=== PATIENT | male | born 1960 | race Caucasian/White ===

== ENCOUNTER → 2019-08-23 | Outpatient (CLI) | payer BC, SELFPAY ==
[2019-08-23 12:57] LABS: Absolute Lymphocyte Count 2.16 X10^3/uL (0.83-4.51); Absolute Neutrophil Count 4.3 X10^3/uL (2.0-7.7); Basophil# 0.07 X10^3/uL; Eosinophil# 0.28 X10^3/uL; Eosinophils% 3.8 % (0-5); Hematocrit 46.9 % (40-54); Hemoglobin 15.7 g/dL (13.0-16.5); Lymphocyte # 2.16 X10^3/ul (4.0); Lymphocyte % 29.3 % (19-41); Mean Corp Hgb Conc 33.5 g/dL (32-36); Mean Corpuscular Hgb 33.3 pg (27.0-32.0); Mean Corpuscular Volume 99.4 fL (80-94); Mean Platelet Vol. 11.4 fl (6.2-12.0); Monocyte# 0.57 X10^3/uL; Monocyte% 7.7 % (0-10); NRBC Flagged by Analyzer 0 % (0-5); Neutrophil # 4.26 X10^3/uL (2.7-7.7); Neutrophil % 57.9 % (47-70); Platelet Count 217 K/mm3 (150-450); RBC Distribution Width SD 46.9 fl (35.1-43.9); Red Blood Count 4.72 M/mm3 (4.6-6.2); White Blood Count 7.4 K/mm3 (4.4-11.0)
[2019-08-23 13:25] LABS: ALB/GLOB Ratio 0.8 RATIO (0.9-2.4); AST(SGOT) 37 U/L (15-37); Alanine Aminotransfer ALT/SGPT 45 U/L (16-61); Albumin, Serum 3.4 g/dL (3.2-5.0); Alkaline Phosphatase 72 U/L (45-117); Anion Gap 7 (5-15); BUN 15 mg/dL (7-18); BUN/Creat Ratio 15.1 RATIO (10-20); Calcium,Total 8.7 mg/dL (8.5-10.1); Chloride 98 mmol/L (98-107); Cholesterol 163 mg/dL (200); Creatinine, Serum 0.99 mg/dL (0.70-1.30); EST Glomerular Filtration Rate 82 mL/min (>60); Est Glom Filt Rate - Afr Amer 100 mL/min (>60); Globulin 4.3 g/dL (2.2-4.2); Glucose 175 mg/dL (74-106); High Density Lipoprotein 35 mg/dL; Potassium 3.3 mmol/L (3.5-5.1); Protein, Total 7.7 g/dL (6.4-8.2); Sodium Level 135 mmol/L (136-145); Thyroid Stim Hormone (TSH) 0.75 uIU/mL (0.358-3.74); Triglycerides 179 mg/dL; Very Low Density Lipoprotein 36 mg/dL (5-40)
== END | disposition home or self-care (01) ==
LOC: MFPLAB 11:17
PROVIDERS: PCP Family Medicine; Referring Provider Family Medicine; Visit Provider Family Medicine
DX: Z00.00 Encounter for general adult medical examination without abnormal findings (principal)
CPT/HCPCS: 36415; 80053; 80061; 84443; 85025

== ENCOUNTER → 2020-12-15 12:18 | Outpatient (CLI) | payer BC, SELFPAY ==
[2020-12-15 15:42] LABS: Absolute Lymphocyte Count 2.52 X10^3/uL (0.83-4.51); Absolute Neutrophil Count 5.2 X10^3/uL (2.0-7.7); Basophil# 0.08 X10^3/uL; Basophil% 0.9 % (0-1); Eosinophil# 0.32 X10^3/uL; Eosinophils% 3.6 % (0-5); Hematocrit 48.9 % (40-54); Hemoglobin 16.7 g/dL (13.0-16.5); Lymphocyte # 2.52 X10^3/ul (0.83-4.51); Lymphocyte % 28.7 % (19-41); Mean Corp Hgb Conc 34.2 g/dL (32-36); Mean Corpuscular Hgb 33.7 pg (27.0-32.0); Mean Corpuscular Volume 98.8 fL (80-94); Mean Platelet Vol. 12.2 fl (6.2-12.0); Monocyte# 0.59 X10^3/uL; Monocyte% 6.7 % (0-10); NRBC Flagged by Analyzer 0 % (0-5); Neutrophil # 5.24 X10^3/uL (2.7-7.7); Neutrophil % 59.9 % (47-70); Platelet Count 246 K/mm3 (150-450); RBC Distribution Width CV 13.1 % (11.6-14.6); RBC Distribution Width SD 46.7 fl (35.1-43.9); Red Blood Count 4.95 M/mm3 (4.6-6.2); White Blood Count 8.8 K/mm3 (4.4-11.0)
[2020-12-15 15:53] LABS: Hemoglobin A1c 6.8 % (3.8-5.6)
[2020-12-15 16:04] LABS: ALB/GLOB Ratio 0.7 RATIO (0.9-2.4); AST(SGOT) 40 U/L (15-37); Alanine Aminotransfer ALT/SGPT 47 U/L (16-61); Albumin, Serum 3.3 g/dL (3.2-5.0); Alkaline Phosphatase 63 U/L (45-117); Anion Gap 7 (5-15); BUN 17 mg/dL (7-18); Calcium,Total 8.8 mg/dL (8.5-10.1); Chloride 95 mmol/L (98-107); Cholesterol 176 mg/dL (200); Creatinine, Serum 1.13 mg/dL (0.70-1.30); EST Glomerular Filtration Rate 71 mL/min (>60); Est Glom Filt Rate - Afr Amer 85 mL/min (>60); Globulin 4.5 g/dL (2.2-4.2); Glucose 147 mg/dL (74-106); High Density Lipoprotein 36 mg/dL; Potassium 3.2 mmol/L (3.5-5.1); Protein, Total 7.8 g/dL (6.4-8.2); Sodium Level 134 mmol/L (136-145); Triglycerides 229 mg/dL; Uric Acid 6.1 mg/dL (3.5-7.2); Very Low Density Lipoprotein 46 mg/dL (5-40)
== END ==
PROVIDERS: PCP Family Medicine; Referring Provider Family Medicine; Visit Provider Family Medicine
DX: I10 Essential (primary) hypertension (principal); G47.33 Obstructive sleep apnea (adult) (pediatric); M10.9 Gout, unspecified; E66.01 Morbid (severe) obesity due to excess calories
CPT/HCPCS: 36415; 80053; 80061; 82043; 82570; 83036; 84550; 85025

== ENCOUNTER → 2021-09-07 | Outpatient (CLI) | payer BC, SELFPAY ==
[2021-09-07 10:27] LABS: Absolute Lymphocyte Count 1.88 X10^3/uL (0.83-4.51); Absolute Neutrophil Count 3.7 X10^3/uL (2.0-7.7); Basophil# 0.09 X10^3/uL; Basophil% 1.4 % (0-1); Eosinophil# 0.39 X10^3/uL; Eosinophils% 5.9 % (0-5); Hematocrit 51.3 % (40-54); Hemoglobin 17.6 g/dL (13.0-16.5); Lymphocyte # 1.88 X10^3/ul (0.83-4.51); Lymphocyte % 28.4 % (19-41); Mean Corp Hgb Conc 34.3 g/dL (32-36); Mean Corpuscular Hgb 33.9 pg (27.0-32.0); Mean Corpuscular Volume 98.8 fL (80-94); Mean Platelet Vol. 12.1 fl (6.2-12.0); Monocyte# 0.52 X10^3/uL; Monocyte% 7.8 % (0-10); NRBC Flagged by Analyzer 0 % (0-5); Neutrophil # 3.74 X10^3/uL (2.7-7.7); Neutrophil % 56.3 % (47-70); Platelet Count 217 K/mm3 (150-450); RBC Distribution Width CV 13.5 % (11.6-14.6); RBC Distribution Width SD 49.7 fl (35.1-43.9); Red Blood Count 5.19 M/mm3 (4.6-6.2); White Blood Count 6.6 K/mm3 (4.4-11.0)
[2021-09-07 10:41] LABS: Hemoglobin A1c 5.7 % (3.8-5.6)
[2021-09-07 10:44] LABS: ALB/GLOB Ratio 0.9 RATIO (0.9-2.4); AST(SGOT) 49 U/L (15-37); Alanine Aminotransfer ALT/SGPT 60 U/L (16-61); Albumin, Serum 3.7 g/dL (3.2-5.0); Alkaline Phosphatase 61 U/L (45-117); Anion Gap 6 (5-15); BUN 20 mg/dL (7-18); BUN/Creat Ratio 20.7 RATIO (10-20); Calcium,Total 8.9 mg/dL (8.5-10.1); Chloride 100 mmol/L (98-107); Creatinine, Serum 0.97 mg/dL (0.70-1.30); EST Glomerular Filtration Rate 84 mL/min (>60); Est Glom Filt Rate - Afr Amer 102 mL/min (>60); Globulin 4.1 g/dL (2.2-4.2); Glucose 117 mg/dL (74-106); Potassium 3.2 mmol/L (3.5-5.1); Protein, Total 7.8 g/dL (6.4-8.2); Sodium Level 136 mmol/L (136-145); Uric Acid 5.6 mg/dL (3.5-7.2)
[2021-09-07 10:45] LABS: Vitamin B12 358 pg/mL (211-911)
[2021-09-07 14:21] LABS: Microalbumin:Creatinine Ratio 1490.8 mg/g CRE (<30 mg/g CRE)
== END | disposition home or self-care (01) ==
LOC: MFPLAB 08:52
PROVIDERS: PCP Family Medicine; Referring Provider Family Medicine; Visit Provider Family Medicine
DX: E11.9 Type 2 diabetes mellitus without complications (principal); G47.33 Obstructive sleep apnea (adult) (pediatric); T38.3X5A Adverse effect of insulin and oral hypoglycemic [antidiabetic] drugs, initial encounter; M10.9 Gout, unspecified
CPT/HCPCS: 36415; 80053; 82043; 82570; 82607; 83036; 84550; 85025

== ENCOUNTER → 2021-10-29 | Outpatient (CLI) | payer BC, SELFPAY ==
[2021-10-29 18:11] LABS: Anion Gap 9 (5-15); BUN 34 mg/dL (7-18); BUN/Creat Ratio 26.2 RATIO (10-20); Calcium,Total 9.7 mg/dL (8.5-10.1); Chloride 96 mmol/L (98-107); EST Glomerular Filtration Rate 60 mL/min (>60); Est Glom Filt Rate - Afr Amer 72 mL/min (>60); Glucose 81 mg/dL (74-106); Potassium 4.4 mmol/L (3.5-5.1); Sodium Level 134 mmol/L (136-145)
== END | disposition home or self-care (01) ==
LOC: MFPLAB 16:23
PROVIDERS: PCP Family Medicine; Referring Provider Family Medicine; Visit Provider Nurse Practitioner Family
DX: I10 Essential (primary) hypertension (principal)
CPT/HCPCS: 36415; 80048

== ENCOUNTER → 2022-05-31 | Outpatient (CLI) | payer BC, SELFPAY ==
[2022-05-31 15:47] LABS: ALB/GLOB Ratio 1.1 RATIO (0.9-2.4); AST(SGOT) 27 U/L (15-37); Alanine Aminotransfer ALT/SGPT 38 U/L (16-61); Albumin, Serum 4.2 g/dL (3.2-5.0); Alkaline Phosphatase 60 U/L (45-117); Anion Gap 3 (5-15); BUN 46 mg/dL (7-18); BUN/Creat Ratio 24.6 RATIO (10-20); Chloride 101 mmol/L (98-107); Creatinine, Serum 1.87 mg/dL (0.70-1.30); EST Glomerular Filtration Rate 39 mL/min (>60); Est Glom Filt Rate - Afr Amer 48 mL/min (>60); Globulin 3.8 g/dL (2.2-4.2); Glucose 128 mg/dL (74-106); Potassium 5.1 mmol/L (3.5-5.1); Sodium Level 132 mmol/L (136-145)
== END | disposition home or self-care (01) ==
LOC: MFPLAB 11:39
PROVIDERS: PCP Family Medicine; Visit Provider Family Medicine
DX: I10 Essential (primary) hypertension (principal); E66.01 Morbid (severe) obesity due to excess calories; E11.9 Type 2 diabetes mellitus without complications
CPT/HCPCS: 36415; 80053

== ENCOUNTER → 2022-07-19 | Outpatient (CLI) | payer BC, SELFPAY ==
[2022-07-19 13:34] LABS: Anion Gap 6 (5-15); BUN 30 mg/dL (7-18); BUN/Creat Ratio 18.6 RATIO (10-20); Calcium,Total 9.3 mg/dL (8.5-10.1); Chloride 100 mmol/L (98-107); Creatinine, Serum 1.61 mg/dL (0.70-1.30); EST Glomerular Filtration Rate 47 mL/min (>60); Est Glom Filt Rate - Afr Amer 56 mL/min (>60); Glucose 145 mg/dL (74-106); Potassium 4.8 mmol/L (3.5-5.1); Sodium Level 135 mmol/L (136-145)
== END | disposition home or self-care (01) ==
LOC: MFPLAB 09:57
PROVIDERS: PCP Family Medicine; Visit Provider Family Medicine
DX: I10 Essential (primary) hypertension (principal)
CPT/HCPCS: 36415; 80048

== ENCOUNTER → 2022-12-01 | Outpatient (CLI) | payer BC, SELFPAY ==
[2022-12-01 10:02] LABS: Absolute Lymphocyte Count 2.19 X10^3/uL (0.83-4.51); Absolute Neutrophil Count 3.8 X10^3/uL (2.0-7.7); Basophil# 0.08 X10^3/uL; Basophil% 1.2 % (0-1); Eosinophils% 4.3 % (0-5); Hematocrit 53.1 % (40-54); Hemoglobin 17.3 g/dL (13.0-16.5); Lymphocyte # 2.19 X10^3/ul (0.83-4.51); Lymphocyte % 31.7 % (19-41); Mean Corp Hgb Conc 32.6 g/dL (32-36); Mean Corpuscular Hgb 33.1 pg (27.0-32.0); Mean Corpuscular Volume 101.7 fL (80-94); Mean Platelet Vol. 11.5 fl (6.2-12.0); Monocyte# 0.52 X10^3/uL; Monocyte% 7.5 % (0-10); NRBC Flagged by Analyzer 0 % (0-5); Neutrophil # 3.81 X10^3/uL (2.7-7.7); Neutrophil % 55.2 % (47-70); Platelet Count 233 K/mm3 (150-450); RBC Distribution Width CV 13.6 % (11.6-14.6); RBC Distribution Width SD 51.8 fl (35.1-43.9); Red Blood Count 5.22 M/mm3 (4.6-6.2); White Blood Count 6.9 K/mm3 (4.4-11.0)
[2022-12-01 10:24] LABS: Microalbumin:Creatinine Ratio 249.5 mg/g CRE (<30 mg/g CRE)
[2022-12-01 11:13] LABS: ALB/GLOB Ratio 0.8 RATIO (0.9-2.4); AST(SGOT) 24 U/L (15-37); Alanine Aminotransfer ALT/SGPT 36 U/L (16-61); Albumin, Serum 3.4 g/dL (3.2-5.0); Alkaline Phosphatase 71 U/L (45-117); Anion Gap 7 (5-15); BUN 21 mg/dL (7-18); BUN/Creat Ratio 16.3 RATIO (10-20); Chloride 102 mmol/L (98-107); Cholesterol 157 mg/dL (200); Creatinine, Serum 1.29 mg/dL (0.70-1.30); EST Glomerular Filtration Rate 60 mL/min (>60); Est Glom Filt Rate - Afr Amer 73 mL/min (>60); Globulin 4.5 g/dL (2.2-4.2); Glucose 161 mg/dL (74-106); High Density Lipoprotein 42 mg/dL; PSA,Total - Annual Screen 1.98 ng/mL (0.00-4.00); Potassium 4.2 mmol/L (3.5-5.1); Protein, Total 7.9 g/dL (6.4-8.2); Sodium Level 136 mmol/L (136-145); Triglycerides 159 mg/dL; Uric Acid 3.8 mg/dL (3.5-7.2); Very Low Density Lipoprotein 32 mg/dL (5-40)
== END | disposition home or self-care (01) ==
LOC: MFPLAB 09:14
PROVIDERS: PCP Family Medicine; Visit Provider Family Medicine
DX: E11.22 Type 2 diabetes mellitus with diabetic chronic kidney disease (principal); N18.32 Chronic kidney disease, stage 3b; Z12.5 Encounter for screening for malignant neoplasm of prostate; M10.9 Gout, unspecified
CPT/HCPCS: 36415; 80053; 80061; 82043; 82570; 84153; 84550; 85025; G0103

== ENCOUNTER 2023-03-07 06:15 | Day surgery (SDC) | payer BC, SELFPAY ==
--- OUTSIDE RECORDS SUMMARY | 2023-03-07 06:20 | XMS RPT_ITS | CCD ---
Author Name Unknown Address [facility] [place] [id number] Organization [facility] Care Team Providers Care Picture Booker Name Role Phone Unavailable Primary Care Provider Unavailstacie Manley MD, Amy Guillory Primary Care Provider [phone] LARRY ROSARIO Attending Unavailable AMY MANLEY Referring Unavailable LARRY ROSARIO Attending Unavailable Allergies Allergy Classification Reported Allergen(s) Allergy Type Date of Onset Reaction(s) Facility (4 sources) Hazelnut; Translations: [HAZELNUT] Propensity to adverse reactions 12-21-2006 Intolerance [facility] Work Phone: (4 sources) Bees; Translations: [BEES] Propensity to adverse reactions 05-01-2006 Anaphylaxis [facility] Medications Current Medications Medication Drug Class(es) Dates Sig (Normalized) Sig (Original) benoxinate hydrochloride 4 mg/ml / fluorescein sodium 2.5 mg/ml ophthalmic solution (1 source) Diagnostic Dye Start: 09-15-2021 End: 09-15-2021 fluorescein-benox inate 0.25-0.4 % 1 Drop (FLURESS) dexamethasone 0.001 mg/mg / tobramycin 0.003 mg/mg ophthalmic ointment (1 source) Aminoglycoside Antibacterial, Corticosteroid Start: 01-14-2022 tobramycin-dexAME THasone (TOBRADEX) 0.3-0.1 % ophthalmic ointment Use 1 application in the right eye daily at bedtime. BRING UNOPENED TO SURGERY. 3.5 g 0 01/14/2022 Active Completed/Discontinued Medications Medication Drug Class(es) Dates Sig (Normalized) Sig (Original) allopurinol 300 mg oral tablet (3 sources) Xanthine Oxidase Inhibitor Start: 04-29-2019 take 1 tablet by mouth once daily allopurinol (ZYLOPRIM) 300 mg tablet Take 1 tablet by mouth once daily. 90 tablet 1 04/29/2019 Active Problems Active Problems Problem Classification Problem Date Documented Date Episodic/Chronic Diabetes mellitus without complication (7 sources) Diabetic on diet only; Translations: [Type 2 diabetes mellitus without complications] Onset: 11-20-2018 Chronic Disorders of lipid metabolism (7 sources) Hyperlipidemia; Translations: [Hyperlipidemia, unspecified] Onset: 04-18-2018 Chronic Essential hypertension (8 sources) Essential hypertension; Translations: [Essential (primary) hypertension] Onset: 08-11-2005 Chronic Gout and other crystal arthropathies (4 sources) Gout; Translations: [Gout, unspecified] 11-08-2010 Chronic Osteoarthritis (3 sources) Osteoarthritis of right knee joint; Translations: [Unilateral primary osteoarthritis, right knee] Onset: 12-11-2017 12-11-2017 Chronic Other eye disorders (6 sources) Lesion of eyelid; Translations: [Unspecified disorder of eyelid] Onset: 09-15-2021 Episodic Other male genital disorders (3 sources) Secondary erectile dysfunction; Translations: [Male erectile dysfunction, unspecified] Onset: 08-01-2016 08-01-2016 Chronic Other nutritional; endocrine; and metabolic disorders (6 sources) Body mass index 40+ - severely obese; Translations: [Morbid (severe) obesity due to excess calories] Onset: 03-17-2014 03-17-2014 Chronic Other upper respiratory disease (3 sources) Allergic rhinitis; Translations: [Allergic rhinitis, unspecified] Onset: 08-11-2005 08-11-2005 Chronic Residual codes; unclassified (4 sources) Sleep apnea; Translations: [Sleep apnea, unspecified] Chronic Past or Other Problems Problem Classification Problem Date Documented Da te Episodic/Chronic Abdominal hernia (3 sources) Umbilical hernia; Translations: [Umbilical hernia without obstruction or gangrene] Onset: 07-31-2015 07-31-2015 Episodic Diabetes mellitus without complication (3 sources) Impaired fasting glycemia; Translations: [Impaired fasting glucose] Onset: 07-15-2016 07-15-2016 Episodic Immunizations and screening for infectious disease (3 sources) Requires diphtheria, tetanus and pertussis vaccination; Translations: [Encounter for immunization] Onset: 08-01-2016 08-01-2016 Episodic Other eye disorders (3 sources) Epidermal inclusion cyst of eyelid; Translations: [Cysts of right eye, unspecified eyelid] Onset: 10-24-2017 10-24-2017 Episodic Other non-traumatic joint disorders (3 sources) Pain in right knee; Translations: [Pain in joint, lower leg] Onset: 08-01-2016 08-01-2016 Episodic Other screening for suspected conditions (not mental disorders or infectious disease) (3 sources) Patient encounter status; Translations: [Encounter for screening for malignant neoplasm of prostate] Onset: 08-01-2016 08-01-2016 Episodic Results Test Name Value Interpretation Reference Range Facil ity Vital Signs Date Time Vital Sign Value Performing Clinician Faci lity 01-10-2022 10:15-0500 Diastolic blood pressure 89 mm[Hg] Larry Rosario MD Work Phone: [facility] 01-10-2022 10:15-0500 Heart rate 69 /min Larry Rosario MD Work Phone: [facility] 01-10-2022 10:15-0500 Systolic blood pressure 158 mm[Hg] Larry Rosario MD Work Phone: [facility] 09-15-2021 08:36-0400 Diastolic blood pressure 89 mm[Hg] Larry Rosario MD Work Phone: [facility] 09-15-2021 08:36-0400 Heart rate 69 /min Larry Rosario MD Work Phone: [facility] 09-15-2021 08:36-0400 Systolic blood pressure 158 mm[Hg] Larry Rosario MD Work Phone: [facility] Encounters Encounter Date Encounter Type Care Provider Facility Start: 01-10-2022 End: 01-10-2022 ambulatory LARRY ROSARIO Facility:[facility] Start: 01-10-2022 End: 01-10-2022 Patient encounter procedure Larry Rosario MD Work Phone: Ophthalmology Procedures Date Procedure Procedure Detail Performing Clinician Start: 09-15-2021 Computerized ophthal stefanie imaging retina Larry Rosario MD Work Phone: Start: 08-14-2017 Adult depression scr eening assessment Larry Rosario MD Work Phone: Start: 08-14-2015 Colonoscopy Larry marroquin MD Work Phone: Plan of Treatment Date Care Activity Detail Author Start: 08-01-2026 Urine microalbumin profile DTA P,TDAP,TD (2 - Td or Tdap) [facility] Start: 09-15-2022 Hepatitis C antibody , confirmatory test DILATED RETINAL EXAM [facility] Start: 10-14-2021 Influenza vaccination INFLUENZA (#1) [facility] Start: 08-01-2021 PROSTATE CANCER SCRE ENING DISCUSSION PROSTATE CANCER SCREENING DISCUSSION [facility] Start: 02-13-2021 DEPRESSION ASSESSMENT DEPRESSION ASS ESSMENT [facility] Start: 08-13-2020 Colonoscopy COLONOSCOPY [facility] Start: 08-13-2020 COLORECTAL CANCER SCREENING COLORECTAL CANCER SCREENING [facility] Start: 08-06-2020 ANNUAL PCP TEAM REGISTERED NURSE AMBULATORY KRISTINA DISEASE VISIT ANNUAL PCP TEAM CHRONIC DISEASE VISIT [facility] Start: 11-20-2019 Hepatitis B surface antibody level LDL CHOLESTEROL [facility] Start: 05-21-2019 Hemoglobin A1c/Hemoglobin.total in Blood HBA1C [facility] Start: 01-12-2019 BP CONTROLLED (<130/80) BP CONTROLLE D (<130/80) [facility] Start: 08-14-2018 Adult depression scr eening assessment DEPRESSION SCREENING [facility] Start: 07-25-2014 FECAL OCCULT BLOOD FECAL OCCULT BLOO D [facility] Start: 06-23-2011 SHINGRIX VACCINE (1 of 2) SHINGRIX V ACCINE (1 of 2) [facility] Start: 2006 COLOGUARD (FIT-DNA) COLOGUARD (FIT-D NA) [facility] Start: [address] COLONOGRAPHY [facility] Start: 2006 SIGMOIDOSCOPY SIGMOIDOSCOPY [facility] Start: 06-23-1979 HIV SCREENING HIV SCREENING [facility] Start: 06-23-1971 3 comp foot exam completed DIABETIC FOOT EXAM [facility] Start: 06-23-1971 Hepatitis B screening URINE AL BUMIN:CREATININE RATIO [facility] Start: 06-23-1967 PNEUMOCOCCAL (1 - PCV) PNEUMOCOCCAL (1 - PCV) [facility] Start: 1961 COVID-19 VACCINE (#1) COVID-19 VACCI NE (#1) [facility] Immunizations Immunization Date Immunization Notes Care Provider Romina pierce 08-01-2016 tetanus toxoid, redu laina diphtheria toxoid, and acellular pertussis vaccine, adsorbed Larry Rosario MD Work Phone: [facility] 08-24-2006 tetanus and diphther ia toxoids, not adsorbed, for adult use Larry Rosario MD Work Phone: [facility] Work Phone: Payers Date Payer Category Payer Unknown [employer] PPO [id number] 2009-Present [phone] [address] [place] [id number] PPO [id number] 2009 Unknown [employer]UE [employer] SS PPO [id number] 2009-Present [phone] [address] [place] [address] PPO [id number] 2009 Unknown [id number] Social History Date Type Detail Facility Tobacco smoking stat [facility] Ex-smoker [facility] Work Phone: End: 08-02-2006 History of tobacco use Current smoker [facility] Work Phone: End: 08-02-2006 History of tobacco use Cigar Smoker [facility] Work Phone: Start: 09-15-2021 Alcohol intake Current drinke r of alcohol (finding) [facility] Start: 1960 Sex Assigned At Not on file [facility] Start: 12-31-2021 End: 01-10-2022 Exposure to SARS-CoV-2 (event) Not sure [facility] Progress note 01-10-2022 Note Date & Type Note Facility 01-10-2022 Note HNO ID: [id number] Author: Larry Rosario MD Service: ? Author Type: Physician Type: Progress Notes Filed: 01/10/2022 10:19 AM Note Text: ASSESSMENT/PLAN: 1. Benign lesion of eyelid/cystic lesion - ICD9: 374.9, ICD10: H02.9 (primary diagnosis) Plan excision of benign cystic lesion Right Eye, upper lid, on at [facility]. Current Ophthalmic Meds tobramycin-dexAMETHasone (TOBRADEX) 0.3-0.1 % ophthalmic ointment Starting on 01/14/2022. Use 1 application in the right eye daily at bedtime. BRING UNOPENED TO SURGERY. PHYSICAL EXAM: Vital Signs: Blood pressure 158/89, pulse 69. Respiratory: Normal breath sounds, no wheezing. CARD: Normal heart sounds 1 AND 2, normal sinus rhythm. 2. Essential hypertension - ICD9: 401.9, ICD10: I10 Continue to monitor with primary care physician. 3. Gout, unspecified cause, unspecified chronicity, unspecified site - ICD9: 274.9, ICD10: M10.9 Continue to monitor with primary care physician. Larry Rosario MD I have confirmed and edited as necessary the relevant ophthalmic history, review of systems, surgical history, and ophthalmological examination findings as obtained by the ophthalmic technical staff. I have seen and examined Cathy Aguirre. I have discussed the examination findings, diagnosis, and treatment options with Cathy Aguirre and/or his family. I have also reviewed and agree with the assessment and plan as stated above and agree with all its relevant components. I gave the patient the opportunity to ask questions about the findings, diagnosis, and treatment options. [facility] History and physical note 01-10-2022 Larry Rosario MD - 01/10/2022 10:16 AM EST Note Date & Type Note Facility 01-10-2022 History and physical note HISTORY AND PHYSICAL EXAMINATION SERVICE DATE: 01/10/2022 SERVICE TIME: 10:16 AM PRIMARY CARE PHYSICIAN: Amy Manley MD REASON FOR VISIT: Cathy Aguirre is a 61 year old male who is being seen for Benign Cystic Lesion Right Eye, upper lid. The patient has the following: ACTIVE PROBLEM LIST Gout, Unspecified Unspecified Sleep Apnea Essential Hypertension, Benign Allergic Rhinitis, Cause Unspecified Morbid Obesity With Bmi of 45.0-49.9, Adult (Hcc) Umbilical Hernia Without Obstruction Or Gangrene Impaired Fasting Glucose Chronic Pain of Right Knee Need for Tdap Vaccination Screening for Prostate Cancer Ed (Erectile Dysfunction) of Organic Origin Epidermal Inclusion Cyst of Right Eyelid Osteoarthritis of Right Knee Obesity, Class Iii, Bmi 40-49.9 (Morbid Obesity) (Hcc) Hyperlipidemia Dyslipidemia Hypertension, Essential Type 2 Diabetes Mellitus Without Complication, Without Long-Term Current Use of Insulin (Hcc) Benign Lesion of Eyelid Diet-Controlled Diabetes Mellitus (Hcc) SUBJECTIVE CHIEF COMPLAINT: Growth Right Eye, upper lid, getting bigger in size. HPI: PAST MEDICAL HISTORY Diagnosis Date Essential hypertension Gout, unspecified Unspecified hypertensive heart disease without heart failure Unspecified sleep apnea PAST SURGICAL HISTORY Procedure Laterality Date COLONOSCOPY FLX DX W/COLLJ SPEC WHEN PFRMD 08-14-2015 PAST SURGICAL HISTORY OF excision of lipoma VASECTOMY UNI/BI SPX W/POSTOP SEMEN EXAMS FAMILY HISTORY Problem Relation Age of Onset Prostate Cancer Father late in life Heart Father first event age 68 Cataract Father Heart Mother late in life No Ocular Disease Mother Diabetes Sister 76 No Known Problems Daughter No Known Problems Daughter SOCIAL HISTORY: Social History Tobacco Use Smoking status: Former Types: Cigars Quit date: 08/02/2006 Years since quittin.4 Smokeless tobacco: Never Substance Use Topics Alcohol use: Yes Comment: rare Drug use: No MEDICATIONS: Prior to Admission medications as of 01/10/22 1014 Medication Sig Last Dose Taking tobramycin-dexAMETHasone (TOBRADEX) 0.3-0.1 % ophthalmic ointment Use 1 application in the right eye daily at bedtime. BRING UNOPENED TO SURGERY. Quinapril HCl 40 mg tablet Take 40 mg by mouth once daily. lisinopril (ZESTRIL, PRINIVIL) 20 mg tablet TAKE 1 TABLET BY MOUTH NIGHTLY (TO USE LISINOPPRIL TWICE DAILY) amLODIPine (NORVASC) 10 mg tablet Take 1 tablet by mouth once daily. carvedilol (COREG) 12.5 mg tablet Take 1 tablet by mouth twice daily with meals. lisinopril (ZESTRIL) 10 mg tablet Take 2 tablets by mouth once daily. Patient not taking: Reported on 09/15/2021 Cholecalciferol, Vitamin D3, 125 mcg (5,000 unit) cap Take 1 capsule by mouth once daily. Ascorbic Acid (VITAMIN C) 1,000 mg tablet Take 1 tablet by mouth once daily. lisinopriL-hydrochlorothiazide (PRINZIDE,ZESTORETIC) 20-12.5 mg per tablet Take 1 tablet by mouth every morning. allopurinol (ZYLOPRIM) 300 mg tablet Take 1 tablet by mouth once daily. sildenafil (REVATIO) 20 mg tablet Take 1-2 tablets once a day as needed for erectile dysfunction Okay to take up to 100 mg once a day (per 24 hour period of time) Vitamin E, dl, acetate, (VITAMIN E) 400 unit capsule Take by mouth. selenium Medication Comments documented by Luiza Dalton)(Hist) LATISHA Clark on 10/24/2017 at 1518. Calcium with vitamin D supplement 10/24/17 The medications are managed by this patient. LATISHA Otero CURRENT ALLERGIES: ALLERGIES Allergen Reactions Bees Anaphylaxis Hazelnut Intolerance REVIEW OF SYSTEMS: PAIN ASSESSMENT: General: No weight loss, malaise or fevers. Neuro: No Hx of stroke or seizures Respiratory: No history of current cough or dyspnea, or pneumonia in the past 6 weeks. No history of respiratory/pulmonary symptoms or problems Cardiovascular: Positive for: None GI: No history of GI symptoms or problems. No history of esophageal varices, recent ascites, or ETOH greater than 2 drinks per day. : No history of UTI in past 6 weeks. No history of renal failure. Not currently on or requiring dialysis. No history of symptoms or problems. MATERIALS PLANNER: N/A : N/A Endocrine: No history of diabetes. Has not taken steroids within the past 30 days. No history of endocrinological symptoms or problems. Hematology: No history of bleeding or clotting disorder. Pt is not taking anti-coagulation or platelet medications. No history of hematological symptoms or problems. Oncology: No history of CA metastasis, chemo within 30 days, or radiotherapy within 90 days. Has not lost 10% of body wt in 6 months. No history of oncological symptoms or problems. Psych: No history of psychiatric symptoms or problems. Musculoskeletal: Negative for joint pain or swelling, back pain or muscle pain. Skin: Negative for lesions, rash and itching. PHYSICAL EXAM: VITALS: BP 158/89 Pulse 69 General: Alert and oriented Skin: Normal color, no rash, no lesions. HEENT: EOM, pupils equal, round and reactive. Cardiovascular: Normal S1 & S2, no rubs, murmurs or gallops. No JVD. Pulse regular. Lungs: Normal breath sounds, no wheezes or crackles. Abdomen: Soft, non-tender, no rigidity. Extremities: No deformity, no edema or tenderness, no joint swelling or clubbing. Neurological: Normal cognition and motor skills. Pulses: Carotid and radial pulses normal +2. Diagnostic tests reviewed for today's visit: No new labs ASSESSMENT Medication and Non-Pharmacologic VTE Prophylaxis/Anticoagulants VTE Prophylaxis: VTE prophylaxis appropriate Impression: There is no known pertinent medical condition which may affect rosa isela-operative course Clinical Risk Factors for Possible Cardiac Complications: None Patient is scheduled for a low-risk procedure. FUNCTIONAL STATUS: Do yardwork, such as raking leaves, weeding,or pushing a power mower (4.50 METs) Functional Class (NYHA): I [facility]: Not obtained PLAN CONSULTS: Patient does not require consults for optimization at this time. The Following Tests/Procedures Have Been Initiated: None Instructions Given to Patient: Patient given verbal and written preop instructions and voices comprehension and compliance. SIGNATURE: Larry Rosario MD PATIENT NAME: Cathy Aguirre DATE: January 10, 2022 TIME: 10:16 AM PAGER/CONTACT #: documented in this encounter [facility] Instructions 01-10-2022 Patient Instructions Note Date & Type Note Facility 01-10-2022 Instructions Larry Rosario MD - 01/10/2022 10:16 AM EST Plan excision of benign cystic lesion Right Eye, upper lid, on at [facility]. Current Ophthalmic Meds tobramycin-dexAMETHasone (TOBRADEX) 0.3-0.1 % ophthalmic ointment Starting on 01/14/2022. Use 1 application in the right eye daily at bedtime. BRING UNOPENED TO SURGERY. If you have any questions please contact our office at [phone]. After office hours or on the weekend, please call Dr. Rosario on his cell phone at [phone]. documented in this encounter [facility] History of Present illness Narrative 01-10-2022 Larry Rosario MD - 01/10/2022 10:14 AM EST Note Date & Type Note Facility 01-10-2022 History of Presen t illness Narrative ASSESSMENT/PLAN: 1. Benign lesion of eyelid/cystic lesion - ICD9: 374.9, ICD10: H02.9 (primary diagnosis) Plan excision of benign cystic lesion Right Eye, upper lid, on at [facility]. Current Ophthalmic Meds tobramycin-dexAMETHasone (TOBRADEX) 0.3-0.1 % ophthalmic ointment Starting on 01/14/2022. Use 1 application in the right eye daily at bedtime. BRING UNOPENED TO SURGERY. PHYSICAL EXAM: Vital Signs: Blood pressure 158/89, pulse 69. Respiratory: Normal breath sounds, no wheezing. CARD: Normal heart sounds 1 & 2, normal sinus rhythm. 2. Essential hypertension - ICD9: 401.9, ICD10: I10 Continue to monitor with primary care physician. 3. Gout, unspecified cause, unspecified chronicity, unspecified site - ICD9: 274.9, ICD10: M10.9 Continue to monitor with primary care physician. Larry Rosario MD I have confirmed and edited as necessary the relevant ophthalmic history, review of systems, surgical history, and ophthalmological examination findings as obtained by the ophthalmic technical staff. I have seen and examined Cathy Aguirre. I have discussed the examination findings, diagnosis, and treatment options with Cathy Aguirre and/or his family. I have also reviewed and agree with the assessment and plan as stated above and agree with all its relevant components. I gave the patient the opportunity to ask questions about the findings, diagnosis, and treatment options. documented in this encounter [facility] Progress note 09-15-2021 Note Date & Type Note Facility 09-15-2021 Note HNO ID: [id number] Author: Larry Rosario MD Service: ? Author Type: Physician Type: Progress Notes Filed: 09/15/2021 9:21 AM Note Text: ASSESSMENT/PLAN: 1. Benign lesion of eyelid/cystic lesion right eye - ICD9: 374.9, ICD10: H02.9 (primary diagnosis) Blood pressure 158/89, pulse 69. Plan removal at [facility]- will call to schedule 2. Diet-controlled diabetes mellitus (HCC) - ICD9: 250.00, ICD10: E11.9 Please keep your blood sugar under good control to minimize risk of ocular complications from diabetes. 3. Unspecified sleep apnea - ICD9: 780.57, ICD10: G47.30 4. Hypertension, essential - ICD9: 401.9, ICD10: I10 5. Hyperlipidemia, unspecified hyperlipidemia type - ICD9: 272.4, ICD10: E78.5 Continue care with primary care physician Larry Rosario MD I have confirmed and edited as necessary the relevant ophthalmic history, review of systems, surgical history, and ophthalmological examination findings as obtained by the ophthalmic technical staff. I have seen and examined Cathy Aguirre. I have discussed the examination findings, diagnosis, and treatment options with Cathy Aguirre and/or his family. I have also reviewed and agree with the assessment and plan as stated above and agree with all its relevant components. I gave the patient the opportunity to ask questions about the findings, diagnosis, and treatment options. [facility] History of Present illness Narrative 09-15-2021 Larry Rosario MD - 09/15/2021 9:18 AM EDT Note Date & Type Note Facility 09-15-2021 History of Presen t illness Narrative ASSESSMENT/PLAN: 1. Benign lesion of eyelid/cystic lesion right eye - ICD9: 374.9, ICD10: H02.9 (primary diagnosis) Blood pressure 158/89, pulse 69. Plan removal at [facility]- will call to schedule 2. Diet-controlled diabetes mellitus (HCC) - ICD9: 250.00, ICD10: E11.9 Please keep your blood sugar under good control to minimize risk of ocular complications from diabetes. 3. Unspecified sleep apnea - ICD9: 780.57, ICD10: G47.30 4. Hypertension, essential - ICD9: 401.9, ICD10: I10 5. Hyperlipidemia, unspecified hyperlipidemia type - ICD9: 272.4, ICD10: E78.5 Continue care with primary care physician Larry Rosario MD I have confirmed and edited as necessary the relevant ophthalmic history, review of systems, surgical history, and ophthalmological examination findings as obtained by the ophthalmic technical staff. I have seen and examined Cathy Aguirre. I have discussed the examination findings, diagnosis, and treatment options with Cathy Aguirre and/or his family. I have also reviewed and agree with the assessment and plan as stated above and agree with all its relevant components. I gave the patient the opportunity to ask questions about the findings, diagnosis, and treatment options. documented in this encounter [facility] Evaluation note Note Date & Type Note Facility documented in this encounter [facility] Evaluation note Note Date & Type Note Facility documented in this encounter [facility] Evaluation note Note Date & Type Note Facility documented in this encounter [facility] Advance Directives No Advanced Directives Records FoundDocuments on File Type Date Recorded Patient Dye Tub Tender Expl anation Advance Directive(s) 08/14/2015 6:18 AM Advance Directive(s) 07/28/2015 3:27 PM Summary Purpose Family History No Family History Records Found Additional Source Comments Source Comments (unrecognize d section and content) In the event this informatio n is protected by the Federal Confidentiality of Alcohol and Drug Abuse Patient Records regulations: The Federal rules restrict any use of the information to criminally investigate or prosecute any alcohol or drug abuse patient.[facility] the event this information is protected by the Federal Confidentiality of Alcohol and Drug Abuse Patient Records regulations: The Federal rules restrict any use of the information to criminally investigate or prosecute any alcohol or drug abuse patient.[facility] the event this information is protected by the Federal Confidentiality of Alcohol and Drug Abuse Patient Records regulations: The Federal rules restrict any use of the information to criminally investigate or prosecute any alcohol or drug abuse patient.[facility] Reason for Visit (unrecogniz ed section and content) Reason Comments Benign cystic lesion Right Eye, upper li d Care Teams (unrecognized sec tion and content) (unrecognized sect ion and content) No Status Records Found INFORMATION SOURCE (unrecogn ized section and content) FOR RECORDS PERTAINING TO PATIENTS WHO ARE OR HAVE BEEN ENROLLED IN A CHEMICAL DEPENDENCY/SUBSTANCEABUSE PROGRAM, SOME INFORMATION MAY BE OMITTED. This clinical summary was aggregated from multiple sources. Caution should be exercised in using it in the provision of clinical care. This summary normalizes information from multiple sources, and as a consequence, information in this document may materially change the coding, format and clinical context of patient data. In addition, data may be omitted in some cases. CLINICAL DECISIONS SHOULD BE BASED ON THE PRIMARY CLINICAL RECORDS. [facility] [employer] [facility]. provides no warranty or guarantee of the accuracy or completeness of information in this document.
[2023-03-07 06:41] VITALS: BP 162/94; PULSE 76; RESP 18; TEMP 36.6; O2SAT 97; BMI 41.3
[2023-03-07] MEDS: Lactated Ringers 1,000 ML 15 ML IV (07:00)
--- NOTE | 2023-03-07 07:06 | PCM.HP.BLA ---
History and Physical Date of Admission: 03/07/23 Intake Vital Signs 12/20/2307:08 Height 5 ft 11 in Weight: 284 lb BMI 39.6 BP 165/96 H Blood Pressure Location Rt brachial Position Sitting Respiration 17 Pulse 65 Pulse Source Monitor Temp 97.7 F L Temp Source Temporal Pulse Oximetry (%) 96 Oxygen Delivery Method room air Intake Visit Reasons: SCOPE/HERNIA Chief Complaint: scope/hernia Is patient in pain?: No Allergies bee venom protein (honey bee) Allergy (Severe, Verified 12/19/22 08:19) Anaphylaxishazelnut Allergy (Severe, Verified 12/19/22 08:19) Anaphylaxis Medications allopurinol 300 mg tablet 300 mg PO DAILY 12/19/22 [History Confirmed 12/19/22] calcium carbonate 200 mg calcium (500 mg) chewable tablet 200 mg PO DAILY 12/19/22 [History Confirmed 12/19/22] carvedilol 25 mg tablet 25 mg PO BID 12/19/22 [History Confirmed 12/19/22] cholecalciferol (vitamin D3) 50 mcg (2,000 unit) capsule 50 mcg PO DAILY 12/19/22 [History Confirmed 12/19/22] chromium picolinate 400 mcg tablet 400 mcg PO DAILY 12/19/22 [History Confirmed 12/19/22] dapagliflozin propanediol 10 mg tablet (Farxiga) 10 mg PO DAILY 12/19/22 [History Confirmed 12/19/22] flaxseed oil 1,000 mg capsule 1,000 mg PO DAILY 12/19/22 [History Confirmed 12/19/22] fluticasone propionate 50 mcg/actuation nasal spray,suspension (Flonase Allergy Relief) 1 spray intranasal DAILY 12/19/22 [History Confirmed 12/19/22] magnesium oxide 400 mg PO DAILY 12/19/22 [History Confirmed 12/19/22] omega-3 fatty acids 1,000 mg capsule 1,000 mg PO DAILY 12/19/22 [History Confirmed 12/19/22] potassium citrate 10 mEq (1,080 mg) tablet,extended release 10 meq PO DAILY 12/19/22 [History Confirmed 12/19/22] ramipril 10 mg capsule 10 mg PO DAILY 12/19/22 [History Confirmed 12/19/22] tumeric 100 mg-wan 150 mg-olive 50 mg-oreg 150 mg-caprylate capsule cap PO 12/19/22 [History Confirmed 12/19/22] vitamin E (dl, acetate) 90 mg (200 unit) capsule 90 mg PO DAILY 12/19/22 [History Confirmed 12/19/22] [facility] Social History (Updated 12/19/22 @ 08:08 by Nancy Junior) Smoking Status: Former smoker alcohol intake: current substance use type: does not use HPI HPI HPI: Patient is a 62-year-old male here for surveillance colonoscopy. Patient has last colonoscopy 5 years ago and 3 polyps were removed. Patient denies any abdominal pain or blood in the stool. ROS General General: No weight change, appetite, fatigue, colon cancer, breast cancer or weakness HEENT HEENT: No difficulty swallowing, eye injury, eye surgery, swollen glands or hoarseness Endo Endocrine: Yes diabetes mellitus; No thyroid disease, thyroid cancer, Hair loss, heat intolerance or cold intolerance Skin Skin: No rash or changing moles Musc Musculoskeletal: Yes gout; No back problems, arthritis, rheumatoid arthritis or joint pain Cardio Cardiovascular: Yes high blood pressure; No murmur, pacemaker, heart disease, atrial fibrillation, heart attack, heart stent, palpitations, shortness of breat with exertion or chest pain Psych Psychiatric: No depression, anxiety or hearing voices Resp Respiratory: No shortness of breath, No sleep apnea, No cough, No COPD, No asthma, No emphysema and No wheezing Gastro Gastrointestinal: No abdominal pain, No nausea or vomiting, No diarrhea, No constipation, No blood in stool, No acid reflux, No hemorrhoids, No ulcers, No gallbladder problem and No black,tarry stools Antonio Hematologic: No blood thinners, No blood disorders, No bleeding, No anemia and No blood clots Neuro Neurologic: No system reviewed and no additional complaints, except as documented, No as per HPI, No abnormal gait, No abnormal hearing, No abnormal movements, No abnormal speech, No behavioral changes, No burning sensations, No confusion, No convulsions, No disequilibrium, No dizziness, No localized weakness, No frequent falls, No headache(s), No lack of coordination, No loss of vision, No memory loss, No numbness, No other visual disturbances, No radicular pain, No restless legs, No sensory deficit, No syncope, No tingling, No tremor(s), No weakness and No other Exam Const General: cooperative Orientation: alert and oriented x3 [facility] Head: normal to inspection Neck Neck: normal visual inspection and full ROM Chest Chest palpation & inspection: normal inspection of the chest Resp Effort & Inspection: normal respiratory effort Auscultation: clear to auscultation bilaterally Cardio Rate: regular rate Rhythm: regular rhythm GI Inspection: non-distended Palpation: soft and nontender Skin General: no rashes or lesions noted Neuro General: patient alert and patient oriented x3 Extrem General: full ROM Psych Appearance: grossly normal Mental Status: mental status grossly normal Assessment and Plan Assessment and Plan (1) History of colon polyps: Status: Acute Plan: The patient has a history of colon polyps and requires surveillance colonoscopy. Patient also has an umbilical hernia but he would like this repaired in the spring when he is done with his busy season. He will come back to discuss hernia repair. I explained endoscopy in detail to the patient. I explained the risks including but not limited to stroke or heart attack with anesthesia, perforation of the GI tract, bleeding, infection. I explained that any of these could necessitate further emergency surgery. The patient understands and all questions were answered sufficiently. The patient wishes to proceed with procedure. Lior Aguilar MD Pager: [facility] [address] [place] [address], [address] [place] [address] Office: I have examined the patient and the H&P has been reviewed. There are no clinical changes since date of exam.
--- NOTE | 2023-03-07 07:30 | COLBX_PTH ---
PATHOLOGY RESULTS PATIENT: CATHY BASS LOC: EN U#:[id number] AGE/SX: 62/M ROOM: RE03/07/[address]: Dr. Lior Aguilar MD : 1960 BED: DIS: 03/07/2023 SPEC #: [id number] RECD: 03/07/23 12:09 STATUS: DEJAH ARMSTRONG #: [id number] KATHI: 03/07/23 07:[address]: Lior Aguilar DEPT: SURGICAL PATHOLOGY RECD BY: Dayna Gonzalez ENTERED: 03/07/23 12:10 SP TYPE: COLON BX OTHR DR: Dr. Fernando Manley MD Tissues: Rectum, NOS Procedures: Surgery Specimen Level IV HEADER OPERATION: Colonoscopy, hot snare PRE-OP DIAGNOSIS: History of colon polyps TISSUE SUBMITTED: Rectal polyp MICROSCOPIC DIAGNOSIS Rectal polyp, biopsy: Fibrolipomatous polyp. AM:rd 03/08/2023 MICROSCOPIC DESCRIPTION Slides are reviewed. GROSS DESCRIPTION Received in fixative is one container labeled with the patient's name and designated rectal polyp. The specimen consists of a pedunculated polyp measuring 0.5 x 0.5 x 0.3 cm and the pedicle measures 0.7 cm in length and 0.2 cm in diameter. The tip of polyp is inked black. The entire specimen is submitted in one cassette. / SJ:rg 03/07/2023 TC:1 CPT: 07282
--- NOTE | 2023-03-07 07:47 | OP.CCLET_ITS ---
03/07/2023 Fernando Manley [address]] [address] [place] [address] Re : Colonoscopy procedure for Yonathan Aguirre Dear Dr. Manley This procedure was performed on Tuesday, March 07, 2023. My impressions and recommendations are as follows: Impressions : - One small polyp in the rectum, removed with a hot snare. Resected and retrieved. - The entire examined colon is normal on direct and retroflexion views. Recommendations : - Discharge patient to home. - Resume previous diet. - Continue present medications. - Await pathology results. - Repeat colonoscopy in 5 years for surveillance based on pathology results. My findings are described in the full procedure note, which is enclosed. If I can be of further assistance, please feel free to contact me at Doctor phone number(s): , Work: . Sincerely, Lior Aguilar MD 03/07/2023 7:47:26 AM This report has been signed electronically.
--- NOTE | 2023-03-07 07:47 | OP.COLON_ITS ---
Patient Name: Yonathan Aguirre Procedure Date: 03/07/2023 7:25 AM Date of : 1960 Age: 62 Procedure: Colonoscopy Indications: High risk colon cancer surveillance: Personal history of colonic polyps Providers: Lior Aguilar MD Referring MD: Lior Aguilar MD Medicines: Monitored Anesthesia Care Patient Profile: This is a 62 year old male. Refer to note in patient chart for documentation of history and physical. Last Colonoscopy: 5 years ago. Complications: No immediate complications. Procedure: Pre-Anesthesia Assessment: - Prior to the procedure, a History and Physical was performed, and patient medications and allergies were reviewed. The patient's tolerance of previous anesthesia was also reviewed. The risks and benefits of the procedure and the sedation options and risks were discussed with the patient. All questions were answered, and informed consent was obtained. Prior Anticoagulants: The patient has taken no anticoagulant or antiplatelet agents. After reviewing the risks and benefits, the patient was deemed in satisfactory condition to undergo the procedure. After I obtained informed consent, the scope was passed under direct vision. Throughout the procedure, the patient's blood pressure, pulse, and oxygen saturations were monitored continuously. The Colonoscope was introduced through the anus and advanced to the cecum, identified by appendiceal orifice and ileocecal valve. The colonoscopy was performed without difficulty. The patient tolerated the procedure well. The quality of the bowel preparation was good. The ileocecal valve, appendiceal orifice, and rectum were photographed. Scope In: 7:32:46 AM Scope Withdrawal Time 0 hours 7 minutes 2 seconds Scope Out: 7:43:33 AM Total Procedure Duration Time 0 hours 10 minutes 47 seconds Findings: A small polyp was found in the rectum. The polyp was semi-pedunculated. The polyp was removed with a hot snare. Resection and retrieval were complete. Verification of patient identification for the specimen was done. Estimated blood loss was minimal. The entire examined colon appeared normal on direct and retroflexion views. Impression: - One small polyp in the rectum, removed with a hot snare. Resected and retrieved. - The entire examined colon is normal on direct and retroflexion views. Recommendation: - Discharge patient to home. - Resume previous diet. - Continue present medications. - Await pathology results. - Repeat colonoscopy in 5 years for surveillance based on pathology results. Procedure Code(s): --- Professional --- 51791, Colonoscopy, flexible; with removal of tumor(s), polyp(s), or other lesion(s) by snare technique Diagnosis Code(s): --- Professional --- Z86.010, Personal history of colonic polyps D12.8, Benign neoplasm of rectum CPT copyright 2021 [employer]. All rights reserved. The codes documented in this report are preliminary and upon prosthetics assistant review may be revised to meet current compliance requirements. Lior Aguilar MD 03/07/2023 7:47:26 AM This report has been signed electronically. Number of Addenda: 0 Note Initiated On: 03/07/2023 7:25 AM
[2023-03-07 07:49] VITALS: BP 104/50; BP 162/94; PULSE 69; RESP 18; TEMP 36.2; O2SAT 97
[2023-03-07 07:50] VITALS: BP 100/86; BP 162/94; PULSE 67; RESP 18; O2SAT 96
[2023-03-07 07:54] VITALS: BP 128/81; BP 162/94; PULSE 66; RESP 18; O2SAT 96
[2023-03-07 07:58] VITALS: BP 153/91; BP 162/94; PULSE 66; RESP 18; TEMP 36.6; O2SAT 96
[2023-03-07 08:24] VITALS: BP 162/94
== END 2023-03-07 08:25 | disposition home or self-care (01) ==
LOC: EN 06:16 → AC 06:17
PROVIDERS: PCP Family Medicine; Referring Provider Family Medicine; Visit Provider Surgery
PROC: 0DJD8ZZ Inspection of Lower Intestinal Tract, Via Natural or Artificial Opening Endoscopic (ICD-10-PCS; CPT 45378; principal; 2023-03-07 07:25)
DX: Z12.11 Encounter for screening for malignant neoplasm of colon (principal); K62.1 Rectal polyp; Z87.891 Personal history of nicotine dependence; Z86.010 Personal history of colon polyps; I10 Essential (primary) hypertension; Z79.899 Other long term (current) drug therapy
CPT/HCPCS: 45385; 88305; J7120; J2405

== ENCOUNTER 2023-03-10 10:09 | Day surgery (SDC) | payer BC, SELFPAY ==
--- OUTSIDE RECORDS SUMMARY | 2023-03-10 10:30 | XMS RPT_ITS | CCD ---
Author Name Unknown Address [facility] [place] [id number] Organization [facility] Care Team Providers Care Leisure Travel Agent Name Role Phone Unavailable Primary Care Provider Unavailstacie Manley MD, Amy Guillory Primary Care Provider LARYR ROSARIO Attending Unavailable AMY MANLEY Referring Unavailable LARRY ROSARIO Attending Unavailable Allergies Allergy Classification Reported Allergen(s) Allergy Type Date of Onset Reaction(s) Facility (4 sources) Hazelnut; Translations: [HAZELNUT] Propensity to adverse reactions 12-21-2006 Intolerance [facility] Work Phone: (4 sources) Bees; Translations: [BEES] Propensity to adverse reactions 05-01-2006 Anaphylaxis [facility] Medications Current Medications Medication Drug Class(es) Dates [...] 89 mm[Hg] Larry Rosario MD Work Phone: [facility] 01-10-2022 10:15-0500 Heart rate 69 /min Larry Rosario MD Work Phone: [facility] 01-10-2022 10:15-0500 Systolic blood pressure 158 mm[Hg] Larry Rosario MD Work Phone: [facility] 09-15-2021 08:36-0400 Diastolic blood pressure 89 mm[Hg] Larry Rosario MD Work Phone: [facility] 09-15-2021 08:36-0400 Heart rate 69 /min aLrry Rosario MD Work Phone: [facility] 09-15-2021 08:36-0400 Systolic blood pressure 158 mm[Hg] Larry Rosario MD Work Phone: [facility] Encounters Encounter Date Encounter Type Care Provider Facility Start: 01-10-2022 End: 01-10-2022 ambulatory LARRY ROSARIO Facility:[facility] Start: 01-10-2022 End: 01-10-2022 Patient encounter procedure [...] DTA P,TDAP,TD (2 - Td or Tdap) [facility] Start: 09-15-2022 Hepatitis C antibody , confirmatory test DILATED RETINAL EXAM [facility] Start: 10-14-2021 Influenza vaccination INFLUENZA (#1) [facility] Start: 08-01-2021 PROSTATE CANCER SCRE ENING DISCUSSION PROSTATE CANCER SCREENING DISCUSSION [facility] Start: 02-13-2021 DEPRESSION ASSESSMENT DEPRESSION ASS ESSMENT [facility] Start: 08-13-2020 Colonoscopy COLONOSCOPY [facility] Start: 08-13-2020 COLORECTAL CANCER SCREENING COLORECTAL CANCER SCREENING [facility] Start: 08-06-2020 ANNUAL PCP TEAM DOCUMENT PHOTOGRAPHER KRISTINA DISEASE VISIT ANNUAL PCP TEAM CHRONIC DISEASE VISIT [facility] Start: 11-20-2019 Hepatitis B surface antibody level LDL CHOLESTEROL [facility] Start: 05-21-2019 Hemoglobin A1c/Hemoglobin.total in Blood HBA1C [facility] Start: 01-12-2019 BP CONTROLLED (<130/80) BP CONTROLLE D (<130/80) [facility] Start: 08-14-2018 Adult depression scr eening assessment DEPRESSION SCREENING [facility] Start: 07-25-2014 FECAL OCCULT BLOOD FECAL OCCULT BLOO D [facility] Start: 06-23-2011 SHINGRIX VACCINE (1 of 2) SHINGRIX V ACCINE (1 of 2) [facility] Start: 2006 COLOGUARD (FIT-DNA) COLOGUARD (FIT-D NA) [facility] Start: [address] COLONOGRAPHY [facility] Start: 2006 SIGMOIDOSCOPY SIGMOIDOSCOPY [facility] Start: 06-23-1979 HIV SCREENING HIV SCREENING [facility] Start: 06-23-1971 3 comp foot exam completed DIABETIC FOOT EXAM [facility] Start: 06-23-1971 Hepatitis B screening URINE AL BUMIN:CREATININE RATIO [facility] Start: 06-23-1967 PNEUMOCOCCAL (1 - PCV) PNEUMOCOCCAL (1 - PCV) [facility] Start: 1960 COVID-19 VACCINE (#1) COVID-19 VACCI NE (#1) [facility] Immunizations Immunization Date Immunization Notes Care Provider Romina pierce 08-01-2016 tetanus toxoid, redu laina diphtheria toxoid, and acellular pertussis vaccine, adsorbed Larry Rosario MD Work Phone: [facility] 08-24-2006 tetanus and diphther ia toxoids, not adsorbed, for adult use Larry Rosario MD Work Phone: [facility] Work Phone: Payers Date Payer Category Payer Unknown [employer] PPO [id number] 2009-Present [phone] [address] [place] [id number] PPO [id number] 2009 Unknown [employer] PPO [id number] 2009-Present [phone] [address] [place] [address] PPO [id number] 2009 Unknown [id number] Social History Date Type Detail Facility Tobacco smoking stat [facility] Ex-smoker [facility] Work Phone: End: 08-02-2006 History of tobacco use Current smoker [facility] Work Phone: End: 08-02-2006 History of tobacco use Cigar Smoker [facility] Work Phone: Start: 09-15-2021 Alcohol intake Current drinke r of alcohol (finding) [facility] Start: 1960 Sex Assigned At Not on file [facility] Start: 12-31-2021 End: 01-10-2022 Exposure to SARS-CoV-2 (event) Not sure [facility] Progress note 01-10-2022 Note Date & Type Note Facility 01-10-2022 Note HNO ID: [id number] Author: Larry Rosario MD Service: ? Author Type: Physician Type: Progress Notes Filed: 01/10/2022 10:19 AM Note Text: ASSESSMENT/PLAN: 1. Benign lesion of eyelid/cystic lesion - ICD9: 374.9, ICD10: H02.9 (primary diagnosis) Plan excision of benign cystic lesion Right Eye, upper lid, on at [facility]. Current Ophthalmic Meds tobramycin-dexAMETHasone (TOBRADEX) 0.3-0.1 % [...] about the findings, diagnosis, and treatment options. [facility] History and physical note 01-10-2022 [...] dialysis. No history of symptoms or problems. MAIL MANAGER: N/A : N/A Endocrine: No history of [...] AM PAGER/CONTACT #: documented in this encounter [facility] Instructions 01-10-2022 Patient Instructions Note Date & Type Note Facility 01-10-2022 Instructions Larry Rosario MD - 01/10/2022 10:16 AM EST Plan excision of benign cystic lesion Right Eye, upper lid, on at [facility]. Current Ophthalmic Meds tobramycin-dexAMETHasone (TOBRADEX) 0.3-0.1 % ophthalmic ointment Starting on 01/14/2022. Use 1 application in the right eye daily at bedtime. BRING UNOPENED TO SURGERY. If you have any questions please contact our office at [phone]. After office hours or on the weekend, please call Dr. Rosario on his cell phone at [phone]. documented in this encounter [facility] History of Present illness Narrative 01-10-2022 Larry Rosario MD - 01/10/2022 10:14 AM EST Note Date & Type Note Facility 01-10-2022 History of Presen t illness Narrative ASSESSMENT/PLAN: 1. Benign lesion of eyelid/cystic lesion - ICD9: 374.9, ICD10: H02.9 (primary diagnosis) Plan excision of benign cystic lesion Right Eye, upper lid, on at [facility]. Current Ophthalmic Meds tobramycin-dexAMETHasone (TOBRADEX) 0.3-0.1 % [...] technical staff. I have seen and examined Catyh Aguirre. I have discussed the examination findings, diagnosis, and treatment options with Cathy Aguirre and/or his family. I have also reviewed and agree with the assessment and plan as stated above and agree with all its relevant components. I gave the patient the opportunity to ask questions about the findings, diagnosis, and treatment options. documented in this encounter [facility] Progress note 09-15-2021 Note Date & Type Note Facility 09-15-2021 Note HNO ID: [id number] Author: Larry Rosario MD Service: ? Author Type: Physician Type: Progress Notes Filed: 09/15/2021 9:21 AM Note Text: ASSESSMENT/PLAN: 1. Benign lesion of eyelid/cystic lesion right eye - ICD9: 374.9, ICD10: H02.9 (primary diagnosis) Blood pressure 158/89, pulse 69. Plan removal at [facility]- will call to schedule 2. Diet-controlled diabetes [...] about the findings, diagnosis, and treatment options. [facility] History of Present illness Narrative 09-15-2021 Larry Rosario MD - 09/15/2021 9:18 AM EDT Note Date & Type Note Facility 09-15-2021 History of Presen t illness Narrative ASSESSMENT/PLAN: 1. Benign lesion of eyelid/cystic lesion right eye - ICD9: 374.9, ICD10: H02.9 (primary diagnosis) Blood pressure 158/89, pulse 69. Plan removal at [facility]- will call to schedule 2. Diet-controlled diabetes [...] and treatment options. documented in this encounter [facility] Evaluation note Note Date & Type Note Facility documented in this encounter [facility] Evaluation note Note Date & Type Note Facility documented in this encounter [facility] Evaluation note Note Date & Type Note Facility documented in this encounter [facility] Advance Directives No Advanced Directives Records FoundDocuments on File Type Date Recorded Patient Credit Control Manager Expl anation Advance Directive(s) 08/14/2015 6:18 AM [...] or prosecute any alcohol or drug abuse patient.[facility] the event this information is protected by the Federal Confidentiality of Alcohol and Drug Abuse Patient Records regulations: The Federal rules restrict any use of the information to criminally investigate or prosecute any alcohol or drug abuse patient.[facility] the event this information is protected by the Federal Confidentiality of Alcohol and Drug Abuse Patient Records regulations: The Federal rules restrict any use of the information to criminally investigate or prosecute any alcohol or drug abuse patient.[facility] Reason for Visit (unrecogniz ed section and [...] BE BASED ON THE PRIMARY CLINICAL RECORDS. [facility] docplanner [facility]. provides no warranty or guarantee of the accuracy or completeness of information in this document.
--- NOTE | 2023-03-10 10:38 | PCM.HP.STD ---
HPI - General HPI Narrative CATHY BASS, is a 62 M who presents with GI bleeding. The patient had a colonoscopy 4 days ago. The patient reports the day after his colonoscopy was normal and he had a normal bowel movement but then the day after that he started having red stools. He did have a polypectomy that day. It was at the rectosigmoid junction. [facility] Medical History (Updated 03/10/23 @ 10:[address] Lior Aguilar MD) Alcohol use Arthritis Borderline diabetes CPAP (continuous positive airway pressure) dependence History of irregular heartbeat Umbilical hernia Home Medications allopurinol 300 mg tablet 300 mg PO DAILY 12/19/22 [History Last Taken 03/06/23] calcium carbonate 200 mg calcium (500 mg) chewable tablet 200 mg PO DAILY 12/19/22 [History Last Taken 03/04/23] carvedilol 25 mg tablet 25 mg PO BID 12/19/22 [History Last Taken 03/07/23] cholecalciferol (vitamin D3) 50 mcg (2,000 unit) capsule 50 mcg PO DAILY 12/19/22 [History Last Taken 03/04/23] chromium picolinate 400 mcg tablet 400 mcg PO DAILY 12/19/22 [History Last Taken 03/04/23] dapagliflozin propanediol 10 mg tablet (Farxiga) 10 mg PO DAILY 12/19/22 [History Last Taken 03/06/23] flaxseed oil 1,000 mg capsule 1,000 mg PO DAILY 12/19/22 [History Last Taken 03/04/23] fluticasone propionate 50 mcg/actuation nasal spray,suspension (Flonase Allergy Relief) 1 spray intranasal DAILY 12/19/22 [History Last Taken 03/06/23] magnesium oxide 400 mg PO DAILY 12/19/22 [History Last Taken 03/06/23] omega-3 fatty acids 1,000 mg capsule 1,000 mg PO DAILY 12/19/22 [History Last Taken 03/04/23] potassium citrate 10 mEq (1,080 mg) tablet,extended release 10 meq PO DAILY 12/19/22 [History Last Taken 03/04/23] ramipril 10 mg capsule 10 mg PO DAILY 12/19/22 [History Last Taken 03/07/23] turmeric 100 mg-wan 150 mg-olive 50 mg-oreg 150 mg-capryl capsule 1 cap PO DAILY 12/19/22 [History Last Taken 03/04/23] vitamin E (dl, acetate) 90 mg (200 unit) capsule 90 mg PO DAILY 12/19/22 [History Last Taken 03/04/23] Allergy/AdvReac Type Severity Reaction Status Date / Time bee venom protein (honey bee) Allergy Severe Anaphylaxis Verified 03/02/23 13:48 hazelnut Allergy Severe Anaphylaxis Verified 03/02/23 13:48 Surgical History H/O shoulder surgery Social History (Updated 12/19/22 @ 08:08 by Nancy Junior) Smoking Status: Former smoker alcohol intake: current substance use type: does not use ROS Constitutional Constitutional: Denies anorexia or fatigue Eyes Eyes: Denies blurry vision ENT HEENT: Denies abnormal hearing Cardiovascular Cardiovascular: Denies chest pain Respiratory/Chest Respiratory/Chest: Denies cough or dyspnea Gastrointestinal Gastrointestinal: Reports rectal bleeding; Denies abdominal pain Genitourinary Genitourinary: Denies change in urinary stream Musculoskeletal Musculoskeletal: Denies abnormal gait Integumentary Integumentary: Denies jaundice Physical Exam Const oriented x3 and no apparent distress Resp normal respiratory effort GI soft to palpation and non-tender Inspection: Negative for abdominal distention Assessment & Plan Assessment/Plan (1) GI bleed: QUALIFIERS: GI bleed type/associated pathology: anorectal hemorrhage Qualified Code(s): K62.5 - Hemorrhage of anus and rectum PLAN: The patient had a polyp removed from the rectosigmoid junction. 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 The patient said that he was normal the day after the procedure but the day after that he started having bleeding. We performed a bowel prep yesterday afternoon he comes in today for elective flexible sigmoidoscopy to evaluate the polypectomy site to see if any clips need to be placed or if any bleeding needs to be stopped. I explained endoscopy in detail to the patient. I explained the risks including but not limited to stroke or heart attack with anesthesia, perforation of the GI tract, bleeding, infection. I explained that any of these could necessitate further emergency surgery. The patient understands and all questions were answered sufficiently. The patient wishes to proceed with procedure. Lior Aguilar MD Pager: [facility] [address] [place] [address], [address] [place] [address] Office:
[2023-03-10 10:39] VITALS: BP 164/86; PULSE 64; RESP 16; TEMP 36.8; O2SAT 98; BMI 40.4
[2023-03-10] MEDS: Lactated Ringers 1,000 ML 15 ML IV (10:43)
[2023-03-10 11:55] VITALS: BP 119/77; BP 164/86; PULSE 66; RESP 16; TEMP 36.3; O2SAT 95
[2023-03-10 12:00] VITALS: BP 131/73; BP 164/86; PULSE 60; RESP 18; O2SAT 96
[2023-03-10 12:05] VITALS: BP 135/76; BP 164/86; PULSE 59; RESP 18; TEMP 36.6; O2SAT 95
[2023-03-10 12:19] VITALS: BP 164/86
--- NOTE | 2023-03-10 12:34 | OP.CCLET_ITS ---
03/10/2023 Fernando Manley [address] [facility] [address] [place] [address] Re : Flexible Sigmoidoscopy procedure for Yonathan Aguirre Dear Dr. Manley This procedure was performed on Friday, March 10, 2023. My impressions and recommendations are as follows: Impressions : - Blood in the sigmoid colon. Clips were placed. - No specimens collected. Recommendations : - Discharge patient to home. My findings are described in the full procedure note, which is enclosed. If I can be of further assistance, please feel free to contact me at Doctor phone number(s): , Work: . Sincerely, Lior Aguilar MD 03/10/2023 12:34:09 PM This report has been signed electronically.
--- NOTE | 2023-03-10 12:34 | OP.FLEXSIG_ITS ---
Patient Name: Yonathan Aguirre Procedure Date: 03/10/2023 11:20 AM Date of : 1960 Age: 62 Procedure: Flexible Sigmoidoscopy Indications: Treatment of bleeding from polypectomy site Providers: Lior Aguilar MD Medicines: Propofol per Anesthesia, Monitored Anesthesia Care Patient Profile: This is a 62 year old male. Refer to note in patient chart for documentation of history and physical. Last Colonoscopy: 1 week ago. Complications: No immediate complications. Estimated blood loss: Minimal. Procedure: Pre-Anesthesia Assessment: - Prior to the procedure, a History and Physical was performed, and patient medications and allergies were reviewed. The patient's tolerance of previous anesthesia was also reviewed. The risks and benefits of the procedure and the sedation options and risks were discussed with the patient. All questions were answered, and informed consent was obtained. Prior Anticoagulants: The patient has taken no anticoagulant or antiplatelet agents. After reviewing the risks and benefits, the patient was deemed in satisfactory condition to undergo the procedure. After obtaining informed consent, the endoscope was passed under direct vision. Throughout the procedure, the patient's blood pressure, pulse, and oxygen saturations were monitored continuously. The pediatric colonoscope was introduced through the anus and advanced to the descending colon. The flexible sigmoidoscopy was accomplished without difficulty. The patient tolerated the procedure well. The quality of the bowel preparation was good. Scope In: 11:32:02 AM Scope Out: 11:47:50 AM Total Procedure Duration Time 0 hours 15 minutes 48 seconds Findings: Red blood was found in the sigmoid colon. To prevent bleeding after the polypectomy, four hemostatic clips were successfully placed. There was no bleeding at the end of the procedure. Impression: - Blood in the sigmoid colon. Clips were placed. - No specimens collected. Recommendation: - Discharge patient to home. Procedure Code(s): --- Professional --- 06250, Sigmoidoscopy, flexible; diagnostic, including collection of specimen(s) by brushing or washing, when performed (separate procedure) Diagnosis Code(s): --- Professional --- K92.2, Gastrointestinal hemorrhage, unspecified K91.840, Postprocedural hemorrhage of a digestive system organ or structure following a digestive system procedure CPT copyright 2021 [employer] [place] [employer]. All rights reserved. The codes documented in this report are preliminary and upon filtering machine tender helper review may be revised to meet current compliance requirements. Lior Aguilar MD 03/10/2023 12:34:09 PM This report has been signed electronically. Number of Addenda: 0 Note Initiated On: 03/10/2023 11:20 AM
== END 2023-03-10 12:23 | disposition home or self-care (01) ==
LOC: EN 10:14 → AC 10:14
PROVIDERS: PCP Family Medicine; Referring Provider Family Medicine; Visit Provider Surgery
PROC: 0DJD8ZZ Inspection of Lower Intestinal Tract, Via Natural or Artificial Opening Endoscopic (ICD-10-PCS; CPT 45330; principal; 2023-03-10 11:25)
DX: K91.840 Postprocedural hemorrhage of a digestive system organ or structure following a digestive system procedure (principal); E11.9 Type 2 diabetes mellitus without complications; K62.5 Hemorrhage of anus and rectum; Z87.891 Personal history of nicotine dependence; Z79.899 Other long term (current) drug therapy; I10 Essential (primary) hypertension; Z86.010 Personal history of colon polyps
CPT/HCPCS: 45334; J7120; J1610; J2405

== ENCOUNTER → 2023-06-15 | Outpatient (CLI) | payer BC, SELFPAY ==
[2023-06-15 17:39] LABS: Absolute Lymphocyte Count 1.94 X10^3/uL (0.83-4.51); Absolute Neutrophil Count 4.3 X10^3/uL (2.0-7.7); Basophil# 0.09 X10^3/uL; Basophil% 1.2 % (0-1); Eosinophil# 0.29 X10^3/uL; Hematocrit 51.6 % (40-54); Hemoglobin 17.4 g/dL (13.0-16.5); Lymphocyte # 1.94 X10^3/ul (0.83-4.51); Lymphocyte % 26.8 % (19-41); Mean Corp Hgb Conc 33.7 g/dL (32-36); Mean Corpuscular Volume 97.7 fL (80-94); Mean Platelet Vol. 11.4 fl (6.2-12.0); Monocyte# 0.63 X10^3/uL; Monocyte% 8.7 % (0-10); NRBC Flagged by Analyzer 0 % (0-5); Neutrophil # 4.27 X10^3/uL (2.7-7.7); Platelet Count 199 K/mm3 (150-450); RBC Distribution Width CV 13.7 % (11.6-14.6); RBC Distribution Width SD 49.5 fl (35.1-43.9); Red Blood Count 5.28 M/mm3 (4.6-6.2); White Blood Count 7.2 K/mm3 (4.4-11.0)
[2023-06-15 18:01] LABS: Microalbumin:Creatinine Ratio 213.3 mg/g CRE (<30 mg/g CRE)
[2023-06-15 18:04] LABS: Hemoglobin A1c 6.8 % (3.8-5.6)
[2023-06-15 18:25] LABS: ALB/GLOB Ratio 0.9 RATIO (0.9-2.4); AST(SGOT) 38 U/L (15-37); Alanine Aminotransfer ALT/SGPT 53 U/L (16-61); Albumin, Serum 3.6 g/dL (3.2-5.0); Alkaline Phosphatase 67 U/L (45-117); Anion Gap 8 (5-15); BUN 21 mg/dL (7-18); Chloride 100 mmol/L (98-107); EST Glomerular Filtration Rate 55 mL/min (>60); Est Glom Filt Rate - Afr Amer 66 mL/min (>60); Glucose 158 mg/dL (74-106); Magnesium 2.4 mg/dL (1.6-2.6); Protein, Total 7.6 g/dL (6.4-8.2); Sodium Level 133 mmol/L (136-145)
== END | disposition home or self-care (01) ==
LOC: MFPLAB 16:36
PROVIDERS: PCP Family Medicine; Visit Provider Family Medicine
DX: E11.22 Type 2 diabetes mellitus with diabetic chronic kidney disease (principal); N18.9 Chronic kidney disease, unspecified
CPT/HCPCS: 36415; 80053; 82043; 82570; 83036; 83735; 85025

== ENCOUNTER → 2024-01-04 | Outpatient (CLI) | payer BC, SELFPAY ==
[2024-01-04 15:19] LABS: Hemoglobin A1c 6.9 % (3.8-5.6)
[2024-01-04 15:24] LABS: Microalbumin,Random Urine 97.9 mg/L (NO RANGE EST.); Microalbumin:Creatinine Ratio 187.5 mg/g CRE (<30 mg/g CRE)
[2024-01-04 15:30] LABS: Cholesterol 167 mg/dL (200); High Density Lipoprotein 46 mg/dL; PSA,Total - Annual Screen 1.58 ng/mL (0.00-4.00); Thyroid Stim Hormone (TSH) 0.864 uIU/mL (0.358-3.740); Triglycerides 183 mg/dL; Uric Acid 3.9 mg/dL (3.5-7.2); Very Low Density Lipoprotein 37 mg/dL (5-40)
== END | disposition home or self-care (01) ==
PROVIDERS: PCP Family Medicine; Referring Provider Family Medicine; Visit Provider Family Medicine
DX: Z12.5 Encounter for screening for malignant neoplasm of prostate (principal); E11.22 Type 2 diabetes mellitus with diabetic chronic kidney disease; N18.30 Chronic kidney disease, stage 3 unspecified; I12.9 Hypertensive chronic kidney disease with stage 1 through stage 4 chronic kidney disease, or unspecified chronic kidney disease; M10.9 Gout, unspecified
CPT/HCPCS: 36415; 80061; 82043; 82570; 83036; 84153; 84443; 84550; G0103

== ENCOUNTER → 2024-03-15 | Outpatient (CLI) | payer BC, SELFPAY ==
[2024-03-15 14:07] LABS: ALB/GLOB Ratio 0.9 RATIO (0.9-2.4); AST(SGOT) 27 U/L (15-37); Alanine Aminotransfer ALT/SGPT 36 U/L (16-61); Albumin, Serum 3.7 g/dL (3.2-5.0); Alkaline Phosphatase 51 U/L (45-117); Anion Gap 4 (5-15); BUN 41 mg/dL (7-18); BUN/Creat Ratio 25.6 RATIO (10-20); Calcium,Total 9.6 mg/dL (8.5-10.1); Chloride 99 mmol/L (98-107); EST Glomerular Filtration Rate 47 mL/min (>60); Est Glom Filt Rate - Afr Amer 57 mL/min (>60); Glucose 160 mg/dL (74-106); Potassium 4.5 mmol/L (3.5-5.1); Protein, Total 7.7 g/dL (6.4-8.2); Sodium Level 134 mmol/L (136-145)
[2024-03-15 15:30] LABS: Microalbumin,Random Urine 46.5 mg/L (NO RANGE EST.)
[2024-03-15 16:59] LABS: Hemoglobin A1c 7.4 % (3.8-5.6)
[2024-03-17 14:07] LABS: Adrenocorticotropic Hormone 17.9 pg/mL (7.2-63.3)
== END | disposition home or self-care (01) ==
LOC: MTLAB 10:21
PROVIDERS: PCP Family Medicine; Referring Provider Family Medicine; Visit Provider Family Medicine
DX: E11.9 Type 2 diabetes mellitus without complications (principal)
CPT/HCPCS: 80053; 82024; 82043; 82533; 82570; 83036

== ENCOUNTER → 2024-03-26 | Outpatient (CLI) | payer BC, SELFPAY | END | disposition home or self-care (01) | PROVIDERS: PCP Family Medicine; Referring Provider Family Medicine; Visit Provider Family Medicine | DX: E11.9 Type 2 diabetes mellitus without complications (principal); I10 Essential (primary) hypertension | CPT/HCPCS: 36415; 81050; 82530 ==

== ENCOUNTER → 2024-10-16 | Outpatient (CLI) | payer BC, SELFPAY ==
[2024-10-16 10:24] LABS: Creatinine, Urine (random) 43.90 mg/dL (39.00-259.00); Microalbumin,Random Urine < 12.0 mg/L (<20 mg/L)
[2024-10-16 13:04] LABS: AST(SGOT) 22 U/L (<=37); Alanine Aminotransfer ALT/SGPT 18 U/L (<=46); Albumin, Serum 3.9 g/dL (3.4-4.8); Alkaline Phosphatase 85 U/L (40-129); Anion Gap 10 (5-15); BUN 24 mg/dL (4-19); BUN/Creat Ratio 18.3 RATIO (10-20); Calcium,Total 10.2 mg/dL (7.6-11.0); Carbon Dioxide 26.8 mmol/L (21.0-32.0); Chloride 97 mmol/L (98-108); Globulin 3.3 g/dL (2.2-4.2); Glucose 105 mg/dL (70-99); Potassium 4.8 mmol/L (3.3-5.1)
== END | disposition home or self-care (01) ==
LOC: MFPLAB 09:13
PROVIDERS: PCP Family Medicine; Visit Provider Family Medicine
DX: E11.22 Type 2 diabetes mellitus with diabetic chronic kidney disease (principal); N18.30 Chronic kidney disease, stage 3 unspecified
CPT/HCPCS: 36415; 80053; 82043; 82570; 83036

== ENCOUNTER → 2025-01-20 | Outpatient (CLI) | payer BC, SELFPAY ==
--- OUTSIDE RECORDS SUMMARY | 2025-01-20 10:22 | XMS RPT_ITS | CCD ---
Author Organization [facility] Care Team Providers [facility] Name Role Phone Unavailable Primary Care Provider UnavailAmy Wilson MD Primary Care Provider LARRY SCHWARTZ Attending Unavailable AMY MANLEY Referring Unavailable LARRY SCHWARTZ Attending Unavailable Dr. Amy Manley Primary Care Provider Dr. Amy Manley Referring Provider [phone] Lior Aguilar Attending Provider Dr. Lior Aguilar Other Provider Dr. Amy Manley Primary Care Provider Dr. Amy Manley Referring Provider Dr. Lior Aguilar Attending Provider Dr. Lior Aguilar Other Provider Amy Manely Primary Care Provider FELY SANCHEZ Attending Unavailable NICOLE, AMY Referring Unavailable NICOLE, AMY Primary Care Unavailable NICOLE, AMY Primary Care Unavailable FELY SANCHEZ Admitting Unavailable FELY SANCHEZ Attending Unavailable NICOLE, AMY Primary Care Unavailable FELY SANCHEZ Attending Unavailable NICOLE, AMY Primary Care Unavailable RADHA SONG Attending Unavailable NICOLE, AMY Primary Care Unavailable Dr. Amy Manley MD Primary Care Provider Dr. Amy Manley MD Attending Provider Amy Manley Attending Unavailable Manley, Amy Primary Care Unavailable Manley, Amy Referring Unavailable Manley, Amy Referring Unavailable Manley, Amy Attending Unavailable Manley, Amy Primary Care Unavailable Manley, Amy Attending Unavailable Manley, Amy Primary Care Unavailable Manley, Amy Attending Unavailable Manley, Amy Primary Care Unavailable Manley, Amy Referring Unavailable Allergies Allergy Classification Reported Allergen(s) Allergy Type Date of Onset Reaction(s) Facility (8 sources) [place]; Translations: [[place]] Propensity to adverse reactions 7 Intolerance [facility] Work Phone: (4 sources) Bees; Translations: [BEES] Propensity to adverse reactions 7 Anaphylaxis [facility] (10 sources) bee venom protein (honey bee) Allergy to substance 3 Anaphylaxis [facility] (6 sources) [place] Propensity to adverse reactions 4 [facility] (3 sources) metFORMIN Drug Allergy 5 [facility] (1 source) [place] Drug allergy (disorder) 4 [facility] (1 source) bee venom protein (honey bee) Drug allergy (disorder) 4 [facility] Medications Current Medications Medication Drug Class(es) Dates Sig (Normalized) Sig (Original) allopurinol 300 mg oral tablet (13 sources) Xanthine Oxidase Inhibitor Start: 04-29-2019 take 1 tablet by mouth once daily Allopurinol 300 mg tablet Active 300 mg PO DAILY December 19, 2022 1:00am Comment on above: Take 1 tablet by oumou th once daily. aspirin 81 mg delayed release oral tablet (3 sources) Platelet Aggregation Inhibitor, Nonsteroidal Anti-inflammatory Drug take 1 tablet by mouth twice daily aspirin 81 MG EC tablet Take 81 mg by mouth 2 times daily. Active benoxinate hydrochloride 4 mg/ml / fluorescein sodium 2.5 mg/ml ophthalmic solution (1 source) Diagnostic Dye Start: 09-15-2021 End: 09-15-2021 fluorescein-benox inate 0.25-0.4 % 1 Drop (FLURESS) calcium carbonate 500 mg chewable tablet (4 sources) Start: 12-19-2022 take 1 tablet by mouth once daily Calcium Carbonate 200 mg calcium (500 mg) tablet,chewable Active 200 mg PO DAILY December 19, 2022 1:00am calcium carbonate 625 mg / cholecalciferol 125 unt oral tablet (6 sources) Vitamin D take 1 tablet by mouth twice daily calcium carbonate-choleca lciferol (Oyster Shell) 250-3.125 MG-MCG tablet Take 1 tablet by mouth 2 times daily. Active calcium carbonat e-cholecalciferol (Oyster Shell) 250-3.125 MG-MCG tablet Take 1 tablet by mouth. Active calcium citrate 1500 mg / cholecalciferol 200 unt oral tablet (6 sources) Vitamin D Calcium Citrate- Vitamin D 315-5 MG-MCG tablet Take by mouth. Active carvedilol 25 mg oral tablet (13 sources) alpha-Adrenergi c Darren, beta-Adrenergic Darren Start: 12-20-19 take 1 tablet by mouth twice daily at mealtime Carvedilol 25 mg tablet Active 25 mg PO TWICE A DAY December 19, 2022 1:00am must administer with a meal/food Start: 07-24-2019 take 1 tablet by oumou th twice daily at mealtime carvedilol (COREG) 12.5 mg tablet Indications: Essential hypertension, benign Take 1 tablet by mouth twice daily with meals. 180 tablet 1 07/24/2019 Active Comment on above: Take 1 tablet by oumou th twice daily with meals. cholecalciferol 0.05 mg oral capsule (7 sources) Vitamin D Start: 12-20-19 take 1 capsule by mouth once daily Cholecalciferol (Vitamin D3) 50 mcg (2,000 unit) capsule Active 50 ug PO DAILY December 19, 2022 1:00am Start: 06-25-2019 take 1 capsule by mo [facility] once daily Cholecalciferol, Vitamin D3, 125 mcg (5,000 unit) cap Take 1 capsule by mouth once daily. 0 06/25/2019 Active Comment on above: Take 1 capsule by mo ut once daily. chromium picolinate 0.4 mg oral tablet (10 sources) Start: 12-19-2022 take 1 tablet by mouth twice daily Chromium Picolinate 400 MCG tablet Take by mouth 2 times daily. 12/19/2022 Active Start: 12-19-2022 take 1 tablet by oumou th once daily Chromium Picolinate 400 mcg tablet Active 400 ug PO DAILY December 19, 2022 1:00am citric acid 66.8 mg/ml / potassium citrate 220 mg/ml oral solution (6 sources) Calculi Dissolution Agent, Anti-coagulant citric acid-potass ium citrate (Polycitra) 1100-334 MG/5ML solution Take by mouth 3 times daily (with meals). Active dapagliflozin 10 mg oral tablet (10 sources) Sodium-Glucose Cotransporter 2 Inhibitor Start: 11-06-20 23 take 1 tablet by mouth once daily Dapagliflozin Propanediol (Farxiga) 10 mg tablet Active 10 mg PO DAILY December 19, 2022 1:00am dexamethasone 0.001 mg/mg / tobramycin 0.003 mg/mg ophthalmic ointment (1 source) Aminoglycoside Antibacterial, Corticosteroid Start: 01-15-20 tobramycin-dexAMETHas one (TOBRADEX) 0.3-0.1 % ophthalmic ointment Use 1 application in the right eye daily at bedtime. BRING UNOPENED TO SURGERY. 3.5 g 0 01/14/2022 Active Start: 01-14-2022 tobramycin-dex AMETHasone (TOBRADEX) 0.3-0.1 % ophthalmic ointment Use 1 application in the right eye daily at bedtime. BRING UNOPENED TO SURGERY. 3.5 g 0 01/14/2022 Active Comment on above: Use 1 application in the right eye daily at bedtime. BRING UNOPENED TO SURGERY. fluticasone propionate 0.05 mg/actuat metered dose nasal spray (10 sources) Corticosteroid Start: 12-19-2022 fluticasone (Flonase) 50 MCG/ACT nasal spray Administer 1 spray into affected nostril(s). 12/19/2022 Active Start: 12-19-2022 take 50 ug nasal rou te once daily Fluticasone Propionate (Flonase Allergy Relief) 50 mcg/actuation spray,suspension Active 1 NMA INTRANASAL DAILY December 19, 2022 1:00am administer into each nostril Start: 12-19-2022 take 1 spray(s) nasa l route once daily Fluticasone Propionate (Flonase Allergy Relief) 50 mcg/actuation spray,suspension Active 1 SPRAY INTRANASAL DAILY December 19, 2022 1:00am administer into each nostril hydroCHLOROthiazide 25 mg / spironolactone 25 mg oral tablet (6 sources) Thiazide Diuretic, Aldosterone Antagonist Start: 02-09-2024 take 1 tablet by mouth once daily spironolactone-hydroCHLOROthiazide (Aldactazide) 25-25 MG tablet Take 1 tablet by mouth daily. 02/09/2024 Active linseed oil 1000 mg oral capsule (10 sources) Start: 12-19-2022 take 1 capsule by mouth once daily Flaxseed Oil 1,000 mg capsule Active 1000 mg PO DAILY December 19, 2022 1:00am administer with a meal magnesium oxide 400 mg oral tablet (4 sources) Start: 12-19-2022 take 1 tablet by mouth once daily Magnesium Oxide 400 mg magnesium tablet Active 400 mg PO DAILY December 19, 2022 1:00am omega-3 acid ethyl esters ([facility]) 1000 mg oral capsule (6 sources) omega-3 acid eth yl esters (Lovaza) 1 g capsule Take 1 g by mouth 2 times daily. Active [place]-3 Fatty Acids (3 sources) Start: 12-19-2022 take 1000 mg by mouth once daily [place]-3 Fatty Acids Active 1000 MG PO DAILY December 19, 2022 1:00am Start: 12-19-2022 take 1000 mg by mouth once nereida ly [place]-3 Fatty Acids Active 1000 MG PO DAILY December 19, 2022 12:00am [place]-3 Fatty Acids 1,000 mg capsule (1 source) Start: 12-19-2022 take 1 capsule by mouth once daily [place]-3 Fatty Acids 1,000 mg capsule Active 1000 mg PO DAILY December 19, 2022 1:00am oxyCODONE hydrochloride 5 mg oral tablet (2 sources) Opioid Agonist Start: 05-03-2024 End: 05-08-2024 take 1 tablet by mouth every six hours as needed for pain oxyCODONE (Roxicodone) 5 MG immediate release tablet Indications: Umbilical hernia without obstruction or gangrene Take 1 tablet (5 mg) by mouth every 6 hours as needed for severe pain (7-10) for up to 5 days. 20 tablet 05/03/2024 4:32 PM EDT 05/03/2024 05/08/2024 Active phenylephrine hydrochloride 25 mg/ml ophthalmic solution (1 source) alpha-1 Adrenergic Agonist Start: 09-15-2021 End: 09-15-2021 PHENYLephrine 2.5 % 1 Drop (AK-DILATE, DEMETRIA-SYNEPHRINE) polyethylene glycol 3350 92087 mg powder for oral solution (3 sources) Osmotic Laxative Start: 05-03-2024 End: 06-02-2024 polyethylene glycol, PEG, 3350 (Glycolax) 17 GM/SCOOP powder Take 17 g by mouth daily. 510 g 05/03/2024 4:32 PM EDT 05/03/2024 06/02/2024 Active potassium citrate 10 meq extended release oral tablet (10 sources) Start: 12-19-2022 take 1 tablet by mouth once daily Potassium Citrate 10 mEq (1,080 mg) tablet extended release Active 10 meq PO DAILY December 19, 2022 1:00am proparacaine hydrochloride 5 mg/ml ophthalmic solution (1 source) Local Anesthetic Start: 09-15-2021 End: 09-15-2021 proparacaine 0.5 % 1 Drop (ALCAINE) ramipril 10 mg oral capsule (10 sources) Angiotensin Converting Enzyme Inhibitor Start: 12-19-2022 take 1 capsule by mouth once daily Ramipril 10 mg capsule Active 10 mg PO DAILY December 19, 2022 1:00am tadalafil (6 sources) Phosphodiesterase 5 Inhibitor Start: 12-15-2023 tadalafil (Adcirca) 20 MG tablet as needed. 12/15/2023 Active Start: 12-15-2023 tadalafil (Adc irca) 20 MG tablet 12/15/2023 Active Tirzepatide (MOUNJARO SC) (3 sources) Tirzepatide (OUMOU NJARO SC) Inject under the skin. sundays Active tropicamide 10 mg/ml ophthalmic solution (1 source) Anticholinergic Start: 09-15-2021 End: 09-15-2021 tropicamide 1 % 1 Drop (MYDRIACYL) Htrlsami-Tcju-Rwrhf-O reg-Capry (3 sources) Start: 12-19-2022 take 1 capsule by mouth once daily Unxjlhia-Ppid-Hvzoq-O reg-Capry Active 1 CAP PO DAILY December 19, 2022 1:00am Start: 12-19-2022 take 1 capsule by mouth once daily Zuvqdwra-Zfac-Vzgml-Oreg-Capry Active 1 CAP PO DAILY December 19, 2022 12:00am Ykkfyyhh-Zbea-Yrciq-Oreg-Cap ry 100 mg-150 mg- 50 mg-150 mg capsule (1 source) Start: 12-19-2022 take 1 capsule by mouth once daily Gihgsvkd-Bulk-Cnjmm-Oreg-Capry 100 mg-150 mg- 50 mg-150 mg capsule Active 1 NMA PO DAILY December 19, 2022 1:00am vitamin e 90 mg oral capsule (7 sources) Start: 12-19-2022 take 1 capsule by mouth once daily Vitamin E (Dl, Acetate) 90 mg (200 unit) capsule Active 90 mg PO DAILY December 19, 2022 1:00am Start: 06-11-2018 Vitamin E, dl, acetate, (VITAMIN E) 400 unit capsule Take by mouth. 0 06/11/2018 Active Start: 06-11-2018 Vitamin E, dl, acetate, (VITAMIN E) 400 unit capsule Take by mouth. 0 06/11/2018 Active Comment on above: Take by mouth. VITAMIN E PO (3 sources) VITAMIN E PO Kamron e by mouth every evening. Active Completed/Discontinued Medications Medication Drug Class(es) Dates Sig (Normalized) Sig (Original) acetaminophen 500 mg oral tablet (2 sources) Start: 05-03-2024 End: 05-03-2024 take 1000 mg by mouth once, then take 4000 mg by mouth every twenty-four hours 1,000 mg, Oral, Once, On Mon05/03/24 at 1100, For 1 dose, Preprocedure, Maximum dose of acetaminophen is 4000 mg from all sources in 24 hours. Do not administer if patient has taken tylenol ALPRAZolam 0.25 mg disintegrating oral tablet (2 sources) Benzodiazepine Start: 05-03-2024 End: 05-03-2024 0.25 mg, Oral, PRN, anxiety, Starting on Mon05/03/24 at 1055, For 1 dose, Preprocedure amLODIPine 10 mg oral tablet (3 sources) Dihydropyridine Calcium Channel Darren Start: 07-24-2019 take 1 tablet by mouth once daily amLODIPine (NORVASC) 10 mg tablet Take 1 tablet by mouth once daily. 90 tablet 1 07/24/2019 Active Comment on above: Take 1 tablet by oumou th once daily. ascorbic acid 1000 mg oral tablet (3 sources) Vitamin C Start: 06-25-2019 take 1 tablet by mouth once daily Ascorbic Acid (VITAMIN C) 1,000 mg tablet Take 1 tablet by mouth once daily. 0 06/25/2019 Active Comment on above: Take 1 tablet by oumou th once daily. calcium chloride 0.0014 meq/ml / potassium chloride 0.004 meq/ml / sodium chloride 0.103 meq/ml / sodium lactate 0.028 meq/ml injectable solution (4 sources) Start: 05-03-2024 End: 05-03-2024 take 125 mL intravenously every hour 125 mL/hr, IntraVENous, Continuous, Starting on Mon05/03/24 at 1615, Recovery (only) cholecalciferol 9.52 unt/ml / glucose 357 mg/ml oral gel (2 sources) Vitamin D Start: 05-03-2024 End: 05-03-2024 15 g, Oral, As needed, low blood sugar, Starting on Mon05/03/24 at 1055, Preprocedure, If blood glucose less than 50 mg/dL and patient ALERT and NOT NPO, give 2 tubes glucose gel. If blood glucose less than 70 mg/dL and patient ALERT and NOT NPO, give 1 tube glucose gel. Repeat blood glucose in 15 minutes. If blood glucose is less than 70 mg/dL, repeat treatment and recheck blood glucose in 15 minutes x2 and notify provider. 1 ml diphenhydrAMINE hydrochloride 50 mg/ml cartridge (2 sources) Histamine-1 Receptor Antagonist Start: 05-03-2024 End: 05-03-2024 12.5 mg, IntraVENous, Once PRN, itching, Starting on Mon05/03/24 at 1608, For 1 dose, Recovery (only) 2 ml fentaNYL 0.05 mg/ml injection (4 sources) Opioid Agonist Start: 05-03-2024 End: 05-03-2024 50 mcg, IntraVENous, Every 5 min PRN, severe pain (7-10), Starting on Mon05/03/24 at 1608, For 3 doses, Recovery (only), Phase I and Phase II- Initial therapy for severe pain (7-10). Restricted to a 90 minute time frame starting when the patient can verbally state their pain score. If after 2 doses the pain score does not decrease by more than one point, then call the provider. If oral meds are utilized, do not return to initial therapy medications. Start: 05-03-2024 End: 05-03-2024 25 mcg, IntraVENous, Every 5 min PRN, moderate pain (4-6), Starting on Mon05/03/24 at 1608, For 3 doses, Recovery (only), Phase I and Phase II- Initial therapy for moderate pain (4-6). Restricted to a 90 minute time frame starting when the patient can verbally state their pain score. If after 2 doses the pain score does not decrease by more than one point, then call the provider. If oral meds are utilized, do not return to initial therapy medications. glucagon (rdna) 1 mg injection (2 sources) Antihypoglycemic Agent Start: 05-03-2024 End: 05-03-2024 1 mg, IntraMUSCular, PRN, low blood sugar, Blood glucose less than 70 mg/dL and patient NOT ALERT or NPO and does not have IV access., Starting on Mon05/03/24 at 1055, Preprocedure, After administration, attempt intravenous access and start D5W at 100 mL/hr. Repeat blood glucose in 15 minutes x2 and notify provider. 50 ml glucose 50 mg/ml injection (4 sources) Start: 05-03-2024 End: 05-03-2024 100 mL/hr, IntraVENous, PRN, Blood sugar less than 70mg/dL, Starting on Mon05/03/24 at 1055, Preprocedure, Start infusion following administration of dextrose 50% or glucagon. Start: 05-03-2024 End: 05-03-2024 12.5 g, IntraVENous, PRN, lo w blood sugar, Blood glucose less than 70 mg/dL and patient NOT ALERT or NPO., Starting on Mon05/03/24 at 1055, Preprocedure, If patient does not respond within 5 minutes, repeat dose x1. Start D5W at 100 mL/hour until ordering provider can be reached. Repeat blood glucose in 15 minutes. If blood glucose is less than 70 mg/dL, repeat treatment and recheck blood glucose in 15 minutes x2. If using Glucostabilizer, dose as instructed per system. hydroCHLOROthiazide 12.5 mg / lisinopril 20 mg oral tablet (3 sources) Thiazide Diuretic, Angiotensin Converting Enzyme Inhibitor Start: 06-04-2019 take 1 tablet by mouth once daily in the morning lisinopriL-hydrochlorothiazide (PRINZIDE,ZESTORETIC) 20-12.5 mg per tablet Indications: Hypertension, essential Take 1 tablet by mouth every morning. 90 tablet 1 06/04/2019 Active Comment on above: Take 1 tablet by oumou th every morning. labetalol (Normodyne,Trandate) injection 5 mg (2 sources) Start: 05-03-2024 End: 05-03-2024 labetalol (Normodyne,Trandat e) injection 5 mg lisinopril 20 mg oral tablet (6 sources) Angiotensin Converting Enzyme Inhibitor Start: 06-17-2021 lisinopril (ZESTRIL, PRINIVI L) 20 mg tablet TAKE 1 TABLET BY MOUTH NIGHTLY (TO USE LISINOPPRIL TWICE DAILY) 0 06/17/2021 Active Start: 07-15-2019 take 2 tablets by mo [facility] once daily lisinopril (ZESTRIL) 10 mg tablet Take 2 tablets by mouth once daily. 60 tablet 5 07/15/2019 Active Comment on above: Take 2 tablets by mo [facility] once daily. TAKE 1 TABLET BY OUMOU TH NIGHTLY (TO USE LISINOPPRIL TWICE DAILY) 2 ml ondansetron 2 mg/ml injection (5 sources) Serotonin-3 Receptor Antagonist Start: 05-03-2024 End: 05-03-2024 4 mg, IntraVENous, Once PRN, nausea, Starting on Mon05/03/24 at 1608, For 1 dose, Recovery (only), Initial antiemetic therapy. Start: 05-03-2024 End: 05-18-2024 take 1 tablet by mouth every eight hours as needed for vomiting ondansetron (Zofran) 4 MG tablet Take 1 tablet (4 mg) by mouth every 8 hours as needed for vomiting for up to 7 days. 20 tablet 05/03/2024 4:32 PM EDT 05/03/2024 05/18/2024 Active quinapril 40 mg oral tablet (1 source) Angiotensin Converting Enzyme Inhibitor Start: 12-30-2021 take 1 tablet by mouth once daily Quinapril HCl 40 mg tablet Take 40 mg by mouth once daily. 0 12/30/2021 Active Comment on above: Take 40 mg by mouth once daily. selenium (3 sources) selenium sildenafil 20 mg oral tablet (3 sources) Phosphodiesterase 5 Inhibitor Start: 11-27-2018 sildenafil (REVATIO) 20 mg tablet Indications: ED (erectile dysfunction) of organic origin Take 1-2 tablets once a day as needed for erectile dysfunction Okay to take up to 100 mg once a day (per 24 hour period of time) 50 tablet 11 11/27/2018 Active Comment on above: Take 1-2 tablets onc e a day as needed for erectile dysfunction Okay to take up to 100 mg once a day (per 24 hour period of time) 5 ml sodium chloride 9 mg/ml injection (20 sources) Start: 05-03-2024 End: 05-03-2024 10 mL, IntraVENous, Every 12 hours scheduled (2 times per day), First dose on Mon05/03/24 at 2100, Recovery (only) Start: 05-03-2024 End: 05-03-2024 10 mL, IntraVENous, Every 12 hours scheduled (2 times per day), First dose on Mon05/03/24 at 2100, Recovery (only) Start: 05-03-2024 End: 05-03-2024 500 mL, IntraVENous, at 1,00 0 mL/hr, Administer over 0.5 Hours, PRN, Anti-nausea, Starting on Mon05/03/24 at 1608, Recovery (only), Indications: Anti-nausea Start: 05-03-2024 End: 05-03-2024 10 mL, IntraVENous, Every 12 hours scheduled (2 times per day), First dose on Mon05/03/24 at 1100, Preprocedure Start: 05-03-2024 End: 05-03-2024 take 100 mL intravenously every hour as needed, then take 20 mL intravenously every hour as needed 5-250 mL/hr, IntraVENous, PRN, if patient receiving piggyback infusions and maintenance fluids are not ordered OR KVO fluids to protect IV site / prevent frequent line interruptions/ long duration, Starting on Mon05/03/24 at 1608, Recovery (only), For piggyback infusion, administer at same rate as piggyback for a total of 25 mL. Enter 25 mL into dose field and piggyback rate into rate field of order. If piggyback is infusing at a rate less than 100 mL/hr, enter 25 mL into dose field and 100 mL/hr into rate field of order. For KVO fluids, enter rate of 20 mL/hr or less into rate field of order. Start: 05-03-2024 End: 05-03-2024 take 10 mL intravenously once as needed 10 mL, IntraVENous, PRN, line care, Starting on Mon05/03/24 at 1608, Recovery (only), After every IV line use Start: 05-03-2024 End: 05-03-2024 take 5-40 mL intravenously every twelve hours 5-40 mL, IntraVENous, Every 12 hours, First dose on Mon05/03/24 at 1100, Preprocedure, For Line Patency: Peripheral IV = 5 mL; Midline or Central Line = 10 mL/lumen. If following IV push medication, administer flush at same rate as the IV push. Flush volume is determined by type of infusion therapy being given. For non-viscous solutions use: Peripheral IV = 5 mL Midline or Central Line = 10 mL/lumen For viscous solutions (i.e. blood components, parenteral nutrition, contrast media, or after obtaining blood sample) use: Peripheral IV = 10 mL Midline or Central Line = 20 mL/lumen Problems Active Problems Problem Classification Problem Date Documented Da te Episodic/Chronic Abdominal hernia (20 sources) Umbilical hernia; Translations: [Umbilical hernia without obstruction or gangrene] Onset: 6 07-31-2015 Episodic Abdominal pain (6 sources) Umbilical pain; Translations: [Periumbilical pain] Onset: 5 03-08-2024 Episodic Chronic kidney disease (5 sources) Chronic renal insufficiency; Translations: [Chronic kidney disease, unspecified] Onset: 5 05-02-2024 Chronic Diabetes mellitus with complications (2 sources) Type 2 diabetes mellitus; Translations: [Type 2 diabetes mellitus with other specified complication] Onset: 5 03-08-2024 Chronic Diabetes mellitus without complication (20 sources) Diabetic on diet only; Translations: [Type 2 diabetes mellitus without complications] Onset: 9 Chronic Disorders of lipid metabolism (19 sources) Hyperlipidemia; Translations: [Hyperlipidemia, unspecified] Onset: 9 Chronic Essential hypertension (20 sources) Essential hypertension; Translations: [Essential (primary) hypertension] Onset: 6 Chronic Gastrointestinal hemorrhage (11 sources) Gastrointestinal hemorrhage; Translations: [Gastrointestinal hemorrhage, unspecified] Onset: 4 03-10-2023 Episodic Gout and other crystal arthropathies (14 sources) Gout; Translations: [Gout, unspecified] Onset: 5 11-08-2010 Chronic Osteoarthritis (9 sources) Osteoarthritis of right knee joint; Translations: [Unilateral primary osteoarthritis, right knee] Onset: 8 12-11-2017 Chronic Other aftercare (1 source) Postoperative visit; Translations: [Encounter for other specified surgical aftercare] 05-15-2024 Episodic Other aftercare (2 sources) Encounter for other specified surgical aftercare; Translations: [Encounter for other specified surgical aftercare] Onset: 5 Episodic Other and unspecified benign neoplasm (10 sources) History of polyp of colon; Translations: [Personal history of colonic polyps] Onset: 5 12-19-2022 Episodic Other and unspecified benign neoplasm (2 sources) Personal history of colonic polyps; Translations: [Personal history of colonic polyps] 12-19-2022 Episodic Other male genital disorders (9 sources) Secondary erectile dysfunction; Translations: [Male erectile dysfunction, unspecified] Onset: 7 08-01-2016 Chronic Other nutritional; endocrine; and metabolic disorders (16 sources) Body mass index 40+ - severely obese; Translations: [Morbid (severe) obesity due to excess calories] Onset: 5 03-17-2014 Chronic Other nutritional; endocrine; and metabolic disorders (2 sources) Body mass index (BMI) 40.0-44.9, adult; Translations: [Body mass index (BMI) 40.0-44.9, adult ([facility])] Onset: 5 Chronic Other upper respiratory disease (9 sources) Allergic rhinitis; Translations: [Allergic rhinitis, unspecified] Onset: 6 08-11-2005 Chronic Residual codes; unclassified (10 sources) Sleep apnea; Translations: [Sleep apnea, unspecified] Onset: 5 Chronic Residual codes; unclassified (6 sources) Illness, unspecified; Translations: [Other ill-defined conditions] Onset: 5 03-05-2024 Episodic Past or Other Problems Problem Classification Problem Date Documented Da te Episodic/Chronic Diabetes mellitus without complication (9 sources) Impaired fasting glycemia; Translations: [Impaired fasting glucose] Onset: 07-15-2016 07-15-2016 Episodic Immunizations and screening for infectious disease (3 sources) Requires diphtheria, tetanus and pertussis vaccination; Translations: [Encounter for immunization] Onset: 08-01-2016 08-01-2016 Episodic Other eye disorders (12 sources) Lesion of eyelid; Translations: [Unspecified disorder of eyelid] Onset: 09-15-2021 Episodic Other eye disorders (3 sources) Epidermal inclusion cyst of eyelid; Translations: [Cysts of right eye, unspecified eyelid] Onset: 10-24-2017 10-24-2017 Episodic Other eye disorders (6 sources) Cysts of right eye, unspecified eyelid; Translations: [Cysts of eyelids] Onset: 10-24-2017 03-05-2024 Episodic Other non-traumatic joint disorders (9 sources) Pain in right knee; Translations: [Pain in joint, lower leg] Onset: 08-01-2016 08-01-2016 Episodic Other screening for suspected conditions (not mental disorders or infectious disease) (8 sources) Patient encounter status; Translations: [Encounter for screening for malignant neoplasm of prostate] Onset: 08-01-2016 08-01-2016 Episodic Results Test Name Value Interpretation Reference Range Facility Anion gap in Serum or Plasma Ordered By: Amy Manley on 10-16-2024 Anion gap [Moles/Vol] 10 mmol/L 5-15 [facility] BUN/creatinine ratioOrdered By: Amy Manley on 10-16-2024 Urea nitrogen/Creatinine [Mass ratio] 18.3 mg/mg 10-20 [facility] Bilirubin, totalOrdered By: Amy Manley on 10-16-2024 Bilirubin [Mass/Vol] 0.60 mg/dL 0.00-1.30 [facility] Carbon dioxide, total [Moles /volume] in Central venous bloodOrdered By: Amy Manley on 10-16-2024 CO2 [Moles/Vol] 26.8 mmol/L 21.0-32.0 [facility] Chloride assayOrdered By: Marcelo Manley on 10-16-2024 Chloride [Moles/Vol] 97 mmol/L Low 98-108 [facility] Comprehensive Metabolic Prof ilon 10-16-2024 Albumin [Mass/Vol] 3.9 g/dL Normal 3.4-4.8 [facility] Comment on above: Performed By: #### L [id number], L500.4050, L502.0250 #### [facility] [place], [address] Albumin/Globulin [Mass ratio] 1.2 {ratio} Normal 0.9-2.4 [facility] Comment on above: Performed By: #### L [id number], [id number], L502.0250 #### [facility] [address] [place], [address] ALK PHOS 85 U/L Normal 40-129 [facility] Comment on above: Performed By: #### L [id number], [id number], L502.0250 #### [facility] [address] [place], [address] ALT [Catalytic activity/Vol] 18 U/L Normal <=46 [facility] Comment on above: Performed By: #### L [id number], [id number], [id number] #### [facility] [address] [place], [address] AST [Catalytic activity/Vol] 22 U/L Normal <=37 [facility] Comment on above: Performed By: #### L [id number], [id number], L502.0250 #### [facility] [address] [place], [address] Bilirubin [Mass/Vol] 0.60 mg/dL Normal 0.00-1.30 [facility] Comment on above: Performed By: #### L [id number], [id number], L502.0250 #### [facility] [address] [place], [address] BUN/CRE 18.3 RATIO Normal 10-20 [facility] Comment on above: Performed By: #### L [id number], [id number], L502.0250 #### [facility] [address] [place], [address] Calcium [Mass/Vol] 10.2 mg/dL Normal 7.6-11.0 [facility] Comment on above: Performed By: #### L [id number], [id number], L502.0250 #### [facility] [address] [place], [address] Chloride [Moles/Vol] 97 mmol/L Low 98-108 [facility] Comment on above: Performed By: #### L [id number], [id number], L502.0250 #### [facility] [address] [place], [address] CO2 [Moles/Vol] 26.8 mmol/L Normal 21.0-32.0 [facility] Comment on above: Performed By: #### L [id number], [id number], L502.0250 #### [facility] [address] [place], [address] Creatinine [Mass/Vol] 1.33 mg/dL High 0.70-1.20 [facility] Comment on above: Performed By: #### L [id number], [id number], L502.0250 #### [facility] [address] [place], [address] GAP 10 Normal 5-15 [facility] Comment on above: Performed By: #### L [id number], [id number], L502.0250 #### [facility] [address] [place], [address] GFR/1.73 sq M.predicted among non-blacks MDRD (S/P/Bld) [Vol rate/Area] 60 mL/min/{1.73_m2} Normal >60 [facility] Comment on above: Result Comment: mL/m in/1.73m2 CKD-EPI Creatinine Equation (2020) Performed By: #### L [id number], [id number], L502.0250 #### [facility] [address] [place], [address] Globulin (S) [Mass/Vol] 3.3 g/dL Normal 2.2-4.2 [facility] Comment on above: Performed By: #### L [id number], [id number], L502.0250 #### [facility] [address] [place], [address] Glucose [Mass/Vol] 105 mg/dL High 70-99 [facility] Comment on above: Performed By: #### L [id number], [id number], L502.0250 #### [facility] [address] [place], [address] Potassium [Moles/Vol] 4.8 mmol/L Normal 3.3-5.1 [facility] Comment on above: Performed By: #### L 501.9985, [id number], L502.0250 #### [facility] [address] [place], [address] Sodium [Moles/Vol] 134 mmol/L Normal 133-145 [facility] Comment on above: Performed By: #### L [id number], [id number], L502.0250 #### [facility] [address] [place], [address] T PROT 7.2 g/dL Normal 5.9-8.4 [facility] Comment on above: Performed By: #### L [id number], [id number], L502.0250 #### [facility] [address] [place], [address] Urea nitrogen [Mass/Vol] 24 mg/dL High 4-19 [facility] Comment on above: Performed By: #### L [id number], [id number], L502.0250 #### [facility] [address] [place], [address] Glomerular filtration rate ( GFR) estimation/1.73 sq m using serum, plasma, or whole bOrdered By: Amy Manley on 10-16-2024 GFR/1.73 sq M.predicted among non-blacks MDRD (S/P/Bld) [Vol rate/Area] 60 mL/min/{1.73_m2} >60 [facility] Comment on above: mL/min/1.73m2 CKD-EP I Creatinine Equation (2020) Hemoglobin A1con 10-16-2024 HbA1c (Bld) [Mass fraction] 5.5 % Normal <=5.6 [facility] Comment on above: Result Comment: Norm al < 5.7 % Prediabetic 5.7 - 6.4 % Diabetic >or= 6.5 % Please note range changes. Performed By: #### L 501.9985, [id number], L502.0250 #### [facility] [address] [place], [address] Hemoglobin A1c percentageOrd ered By: Amy Manley on 10-16-2024 HbA1c (Bld) [Mass fraction] 5.5 % <5.7 [facility] Comment on above: Normal < 5.7 % Predi abetic 5.7 - 6.4 % Diabetic >or= 6.5 % Please note range changes. Laboratory - Chemistry and C hemistry - challengeOrdered By: Amy Manley on 10-16-2024 AST [Catalytic activity/Vol] 22 U/L <38 [facility] Microalb:Creat Ratio,Random URon 10-16-2024 Creatinine [Mass/Vol] 43.90 mg/dL Normal 39.00-259.00 [facility] Comment on above: Performed By: #### L [id number], [id number], L502.0250 #### [facility] [address] [place], [address] MALB:CREAT UNABLE TO CALCULATE Normal <30 mg/g CRE [facility] Comment on above: Performed By: #### L [id number], [id number], L502.0250 #### [facility] [address] [place], [address] MICROALBUMIN,UR < 12.0 Normal <20 mg/L [facility] Comment on above: Performed By: #### L [id number], [id number], L502.0250 #### [facility] [place], [address] Microalbumin/creat ratio urO rdered By: Amy Manley on 10-16-2024 Urine microalbumin/creatinine ratio measurement UNABLE TO CALCULATE mg/g CRE <30 [facility] Potassium measurement (mass/ volume)Ordered By: Amy Manley on 10-16-2024 Potassium (Unsp spec) [Mass/Vol] 4.8 mmol/L 3.3-5.1 [facility] Random urine creatinine john urement (mass/volume)Ordered By: Amy Manley on 10-16-2024 Creatinine Unsp time (U) [Mass/Vol] 43.90 mg/dL 39.00-259.00 [facility] Serum creatinine measurement (mass/volume)Ordered By: Amy Manley on 10-16-2024 Creatinine [Mass/Vol] 1.33 mg/dL High 0.70-1.20 [facility] Serum globulin measurementOr dered By: Amy Manley on 10-16-2024 Globulin (S) [Mass/Vol] 3.3 g/dL 2.2-4.2 [facility] Serum glucose measurement (m ass/volume)Ordered By: Amy Manley on 10-16-2024 Glucose [Mass/Vol] 105 mg/dL High 70-99 [facility] Serum or plasma alanine garcia otransferase (ALT) measurementOrdered By: Amy Manley on 10-16-2024 ALT [Catalytic activity/Vol] 18 U/L <47 [facility] Serum or plasma albumin john urement (mass/volume)Ordered By: Amy Manley on 10-16-2024 Albumin [Mass/Vol] 3.9 g/dL 3.4-4.8 [facility] Serum or plasma albumin/glob ulin mass ratioOrdered By: Amy Manley on 10-16-2024 Albumin/Globulin [Mass ratio] 1.2 {ratio} 0.9-2.4 [facility] Serum or plasma alkaline catalino sphatase measurementOrdered By: Amy Manley on 10-16-2024 ALP [Catalytic activity/Vol] 85 U/L 40-129 [facility] Serum or plasma calcium john urement (mass/volume)Ordered By: Amy Manley on 10-16-2024 Calcium [Mass/Vol] 10.2 mg/dL 7.6-11.0 [facility] Serum or plasma urea nitroge n measurement (mass/volume)Ordered By: Amy Manley on 10-16-2024 Urea nitrogen [Mass/Vol] 24 mg/dL High 4-19 [facility] Sodium levelOrdered By: Amy Manley on 10-16-2024 Sodium [Moles/Vol] 134 mmol/L 133-145 [facility] Total proteinOrdered By: Brittney Manley on 10-16-2024 Protein [Mass/Vol] 7.2 g/dL 5.9-8.4 [facility] Urine albumin measurement detection limit of 20 mg/L or less (mass/volume)Ordered By: Amy Manley on 10-16-2024 Albumin DL <= 20 mg/L (U) [Mass/Vol] < 12.0 mg/L <20 mg/L [facility] Office Visiton 05-15-2024 Follow-up visit [id number] Cathy Aguirre 1960 M Date Provider Department Center 05/15/2024 [id number] ALS None Family History Problem Relation Age of Onset Heart attack Mother Heart failure Mother Heart attack Father No Known Problems Brother No Known Problems Brother No Known Problems Daughter No Known Problems Daughter Diabetes Sister No Known Problems Sister Family Status - Relation Status Age at Mother Father Brother Alive Brother Alive Daughter Alive Daughter Alive Sister Sister Alive Level of Service:94056 [place] OFFICE/OUTPATIENT [facility] 10 MIN Reason for Visit and Comments: Post-op [483] - 2 Wk PO -Laparoscopic umbilical hernia repair with mesh -on 05/03/24, w/ JIsmael Normal [facility] Progress Noteon 05-15-2024 Progress Note [facility] - Surgery Patient Name: Cathy Aguirre Date: 05/15/24 S: Cathy Aguirre follows up for a post operative visit after undergoing a laparoscopic umbilical hernia repair with mesh (15 cm) with Dr Sanchez on 05/03/24. He is doing well without any major postoperative complications. His pain control is well controlled and he is not asking for narcotic refills. His bowel function has returned to normal without constipation or diarrhea. His appetite is returning to normal and he does not report any dysphagia, nausea or vomiting. Still sore but improving. Pleased with outcome. Allergies Allergen Reactions Bee Venom Other Reaction(s): Anaphylaxis Hazelnut Metformin Sick to stomach Current Outpatient Medications Medication Sig Dispense Refill allopurinol (Zyloprim) 300 MG tablet Take 300 mg by mouth daily. aspirin 81 MG EC tablet Take 81 mg by mouth 2 times daily. carvedilol (Coreg) 25 MG tablet Take 25 mg by mouth 2 times daily. Chromium Picolinate 400 MCG tablet Take by mouth 2 times daily. dapagliflozin (Farxiga) 10 MG tablet Take 10 mg by mouth daily. fluticasone (Flonase) 50 MCG/ACT nasal spray Administer 1 spray into affected nostril(s). spironolactone-hydro CHLOROthiazide (Aldactazide) 25-25 MG tablet Take 1 tablet by mouth daily. calcium carbonate-cholecalci ferol (Oyster Shell) 250-3.125 MG-MCG tablet Take 1 tablet by mouth 2 times daily. (Patient not taking: Reported on 05/15/2024) Calcium Citrate-Vitamin D 315-5 MG-MCG tablet Take by mouth. (Patient not taking: Reported on 05/15/2024) citric acid-potassium citrate (Polycitra) 1100-334 MG/5ML solution Take by mouth 3 times daily (with meals). (Patient not taking: Reported on 05/15/2024) Flaxseed, Linseed, (Flax Seed Oil) 1000 MG capsule Take 1,000 mg by mouth. (Patient not taking: Reported on 05/15/2024) omega-3 acid ethyl esters (Lovaza) 1 g capsule Take 1 g by mouth 2 times daily. (Patient not taking: Reported on 05/15/2024) ondansetron (Zofran) 4 MG tablet Take 1 tablet (4 mg) by mouth every 8 hours as needed for vomiting for up to 7 days. (Patient not taking: Reported on 05/15/2024) 20 tablet 0 polyethylene glycol, PEG, 3350 (Glycolax) 17 GM/SCOOP powder Take 17 g by mouth daily. (Patient not taking: Reported on 05/15/2024) 510 g 0 potassium citrate CR (Urocit-K-10) 10 mEq ER tablet Take by mouth with evening meal. (Patient not taking: Reported on 05/15/2024) ramipril (Altace) 10 MG capsule (Patient not taking: Reported on 05/15/2024) tadalafil (Adcirca) 20 MG tablet as needed. (Patient not taking: Reported on 05/15/2024) Tirzepatide (MOUNJARO SC) Inject under the skin. sundays (Patient not taking: Reported on 05/15/2024) VITAMIN E PO Take by mouth every evening. (Patient not taking: Reported on 05/15/2024) No current facility-administere d medications for this visit. Past Medical History: Diagnosis Date Adverse effect of metformin CKD (chronic kidney disease) Colon polyps Diabetes (HCC) Elevated prostate specific antigen (PSA) Erectile dysfunction Gout Hypertension Obesity Osteoarthritis Patellar bursitis of right knee Quadriceps tendonitis Sleep apnea mini CPAP Umbilical hernia O: BP (!) 154/89 (BP Location: Right arm, Patient Position: Sitting, BP Cuff Size: Adult) Pulse 70 Temp 36.4 ?C (97.5 ?F) (Temporal) Ht 5' 11 (1.803 m) Wt 287 lb (130 kg) SpO2 96% BMI 40.03 kg/m? Physical Exam: The wounds are healing well. There is no evidence of infection, seroma, erythema or hernia. Scabbing in navel but no surrounding erythema or induration. Assessment/Plan Cathy was seen today for post-op. Diagnoses and all orders for this visit: Umbilical hernia with obstruction, without gangrene (Primary) Encounter for postoperative care He may advance diet as tolerated. He may increase their activity to a normal level yet refrain from lifting greater than 15# for one month after surgery. Follow-up prn. The patient was seen and examined independently and relevant data reviewed by myself. A full chart review was performed. Patient Care Team: Amy Manley as PCP - General (Family Medicine) [facility] Progress Note We want to inform you that your patient's blood pressure was noted to be elevated in our office today. We thank you for trusting us with your patient's health. Last BP: BP Readings from Last 3 Encounters: 05/15/24 (!) 154/89 05/03/24 (!) 155/91 05/01/24 (!) 154/91 Normal [facility] Laboratory - Chemistry and C hemistry - challengeon 05-03-2024 Glucose [Mass/Vol] 149 mg/dL High 70 - 100 mg/dL [facility] Glucose [Mass/Vol] 139 mg/dL High 70 - 100 mg/dL [facility] No Panel Informationon 05-03 Interpretation and review of laboratory results Abnormal [facility] Performed by: [facility], [address] [place] [id number] CLIA ID: [id number] [facility] Interpretation and review of laboratory results Abnormal [facility] Performed by: [facility], [address] [place] [id number] CLIA ID: [id number] [facility] Op Noteon 05-03-2024 Op Note [facility] - Surgery [facility] Patient Name: Cathy Aguirre OPERATIVE NOTE DATE OF PROCEDURE: 05/03/2024 SURGEON: Fely Sanchez MD OPENER: Kaylin Osman MD PREOPERATIVE DIAGNOSIS: Incarcerated umbilical hernia Umbilical pain Morbid obesity, BMI 40 kg/m? POSTOPERATIVE DIAGNOSIS: Same, incarcerated umbilical hernia with omentum, 3 cm fascial defect OPERATION: LAPAROSCOPIC REPAIR INCARCERATED UMBILICAL HERNIA WITH MESH ANESTHESIA: General anesthesia ESTIMATED BLOOD LOSS: Minimal. COMPLICATIONS: None. SPECIMENS: N/A. PREOPERATIVE MEDICATIONS: Ancef HISTORY: The patient is a 63 y.o. year old male with history of above preop diagnosis. I explained the risk, benefits, expected outcome, and alternatives to the procedure. Patient understands and is in agreement to proceed with operation. PROCEDURE: The patient was brought to the operating room and placed in supine position. Both arms were tucked at his side, with care taken to pad the bony prominences. After initiation of general anesthesia by the Anesthesia Department, the abdomen was prepped and draped normal sterile fashion. A Veress needle was placed in the left upper quadrant and insufflated without difficulty. We placed three 5 mm trocars in the left mid-axillary line. Upon entering the abdomen, the hernia at the navel was identified. There was incarcerated omentum. This was unable to be reduced. Bovie electrocautery was used to divide the attachments to the hernia sac. Ultimately an Enseal device was used to amputate the omentum leaving this in the hernia sac. Hemostasis was obtained using the Enseal device and the omentum was from the anterior abdominal wall. We then divided the falciform ligament using Bovie electrocautery. Hemostasis was obtained using an 0 Vicryl Endoloop. Bovie electrocautery was used to divide the redundant fatty tissue along the anterior abdominal wall and this from the posterior sheath and peritoneum. Ultimately we continued our dissection towards the incarcerated hernia sac at the navel and then continued caudally. The allowing us to enter the preperitoneal plane. peritoneum caudal to the umbilical defect was incised with the this from the anterior abdominal wall and completed our dissection all the tissue from the anterior abdominal wall. We freed up the fascial edges, which measured approximately 3 cm. In order to allow for 5 cm overlap in all directions, a 15 cm piece of Symbotex mesh was selected. An infraumbilical curvilinear incision was made using an 11 blade scalpel. The umbilical stalk was elevated using curved scissors, and the fascial defect identified. A 12-mm trocar was placed in a periumbilical fashion and the mesh was introduced into the abdomen. We then removed the preperitoneal fat and falciform ligament and hernia sac which were placed in a wound protection device. This was removed from the abdomen. The pressure was dropped to 12-cm of H2O and the fascia closed with multiple sutures of 1-PDS using the Baron-Placido closure device. The umbilical stalk was secured using 3-0 Vicryl to the anterior abdominal wall to reconstruct the umbilical fold. The mesh was elevated to the anterior abdominal wall and tacked into position using a 5-mm Pro tack device. The mesh was secured to the anterior abdominal wall without difficultly and with excellent overlap. In order to facilitate contralateral fixation, two additional 5 mm trocars were placed in the right midaxillary line. Once we have completed primary fascial closure and mesh reinforcement of the anterior abdominal wall the procedure was completed. The trocars were removed under direct visualization. The skin was closed using 4-0 Monocryl. He tolerated the procedure well, was extubated, and sent to the recovery room in stable condition. [facility] ECG 12-LEADon 05-02-2024 ECG 12-LEAD IMPRESSION: Sinus rhythm Electronically Signed On 05-02-2024 10:27:39 EDT by Yomi Buchanan [facility] [id number] 05-01-2024 [id number] Medication List Accurate as of May 01, 2024 3:41 PM. Always use your most recent med list. allopurinol 300 MG tablet Commonly known as: Zyloprim Medication Adjustments for Surgery: Take morning of surgery aspirin 81 MG EC tablet Notes to patient: Continue to hold calcium carbonate-cholecalci ferol 250-3.125 MG-MCG tablet Commonly known as: Oyster Shell Medication Adjustments for Surgery: Hold morning of surgery Calcium Citrate-Vitamin D 315-5 MG-MCG tablet Medication Adjustments for Surgery: Hold morning of surgery carvedilol 25 MG tablet Commonly known as: Coreg Medication Adjustments for Surgery: Take morning of surgery Chromium Picolinate 400 MCG tablet Medication Adjustments for Surgery: Hold morning of surgery citric acid-potassium citrate 1100-334 MG/5ML solution Commonly known as: Polycitra Notes to patient: Not taking dapagliflozin 10 MG tablet Commonly known as: Farxiga Notes to patient: Hold from 05/01/24 Flax Seed Oil 1000 MG capsule Medication Adjustments for Surgery: Hold morning of surgery fluticasone 50 MCG/ACT nasal spray Commonly known as: Flonase Medication Adjustments for Surgery: Take morning of surgery NICHOLE RAMOS Medication Adjustments for Surgery: Hold morning of surgery omega-3 acid ethyl esters 1 g capsule Commonly known as: Lovaza Medication Adjustments for Surgery: Hold morning of surgery potassium citrate CR 10 MEQ (1080 MG) ER tablet Commonly known as: Urocit-K-10 Medication Adjustments for Surgery: Hold morning of surgery ramipril 10 MG capsule Commonly known as: Altace Medication Adjustments for Surgery: Hold morning of surgery spironolactone-hydro CHLOROthiazide 25-25 MG tablet Commonly known as: Aldactazide Medication Adjustments for Surgery: Hold morning of surgery tadalafil 20 MG tablet Commonly known as: Adcirca Medication Adjustments for Surgery: Hold morning of surgery VITAMIN E PO Medication Adjustments for Surgery: Hold morning of surgery Shower with and antibacterial soap such as Safeguard or Dial. No lotion,powders,deodo rant or body spray. No hair products. Remove all jewelry. You may perform your dental hygiene. Do not wear contacts lenses the day of your procedure. No smoking,vaping, alcohol,or marijuana for 24 hours prior to your surgery. Please bring your [facility] Surgical folder with you day of surgery. We encourage you to write down any questions you may have for the surgeon, anesthesiologist, or other members of the surgical team and bring it with you the day of surgery. Please bring photo ID and insurance information. Please arrange for someone to drive you home after your surgery and that there is a responsible person with your for 24 hours post discharge. If you are being admitted after surgery, please arrange to have your transport arrive at 11 am on the day of discharge You may take your prescription pain medication. You may take Tylenol for pain. NO Motrin, Ibuprofen or Advil for 24 hours prior to surgery or longer if instructed by your surgeon. NO Aleve or naprosyn for 5 days prior to surgery or longer if instructed by your surgeon. NO MELOXICAM/MOBIC FOR 5 DAYS or longer if instructed by your surgeon. IF YOU TAKE BLOOD THINNERS OR ASPIRIN:CONTINUE TO HOLD PER DR SANCHEZ Follow any instructions given to you by Dr. Sanchez If you have specific questions, please call your surgeon. You will receive a call the day before your surgery to verify your arrival time and date. You will be asked to arrive at least two hours prior to your scheduled surgery time. You may use the [employer] parking located at the main entrance on [address] [facility] and take the H elevator to the first floor for same day surgery. Take a left after exiting the elevator and check in at the desk. Or- You may use the parking in the Main deck. Take the level one bridge to the H building and follow the signs for same day surgery. Check in at the desk. If your arrival time is prior to 05:30 please go to registration on the ground floor. Normal [facility] BASIC METABOLIC PANELon 03- Anion gap [Moles/Vol] 13 mmol/L Normal 3-13 [facility] Comment on above: Performed By: #### L AB15 ####Clinical Operations Leader: RAJINDER BUSTILLOS ([phone])[facility] ([facility])[address] [place] [address] Calcium [Mass/Vol] 10.5 mg/dL High 8.8-10.0 [facility] Comment on above: Performed By: #### L AB15 ####Clinical Operations Leader: RAJINDER BUSTILLOS ([phone])[facility] ([facility])[address] [place] [address] [place] Chloride [Moles/Vol] 98 mmol/L Normal 98-107 [facility] Comment on above: Performed By: #### L AB15 ####Clinical Operations Leader: RAJINDER BUSTILLOS ([phone])[facility] ([facility])[address] [place] [address] CO2 [Moles/Vol] 27 mmol/L Normal 23-31 [facility] Comment on above: Performed By: #### L AB15 ####Clinical Operations Leader: RAJINDER BUSTILLOS ([phone])[facility] ([facility])[address] [place] [address] Creatinine [Mass/Vol] 1.55 mg/dL High 0.72-1.25 [facility] Comment on above: Performed By: #### L AB15 ####Clinical Operations Leader: RAJINDER BUSTILLOS ([phone])[facility] ([facility])[address] [place] [address] [place] GLOMERULAR FILTRATION RATE ML/MIN/1.73 SQ M.PREDICTED 50.3 mL/min/1.73m*2 Low >60.0 [facility] Comment on above: Result Comment: Calc ulation based on the Chronic Kidney Disease Epidemiology Collaboration (CKD-EPI) equation refit without adjustment for race Performed By: #### L AB15 ####Clinical Operations Leader: RAJINDER BUSTILLOS ([phone])[facility] ([facility])[address] [place] [address] [place] Glucose [Mass/Vol] 99 mg/dL Normal 82-115 [facility] Comment on above: Performed By: #### L AB15 ####Clinical Operations Leader: RAJINDER BUSTILLOS ([phone])[facility] [place] [address] Potassium [Moles/Vol] 4.3 mmol/L Normal 3.5-5.1 [facility] Comment on above: Result Comment: [facility] potassium values may be up to 0.5 mmol/L lower than serum values. Performed By: #### L AB15 ####Clinical Operations Leader: RAJINDER BUSTILLOS ([phone])[facility] ([facility])[address] [place] [address] Sodium [Moles/Vol] 138 mmol/L Normal 136-145 [facility] Comment on above: Performed By: #### L AB15 ####Clinical Operations Leader: RAJINDER BUSTILLOS ([phone])[facility])[address] [place] [address] Urea nitrogen [Mass/Vol] 34 mg/dL High 9-23 [facility] Comment on above: Performed By: #### L AB15 ####Clinical Operations Leader: RAJINDER BUSTILLOS ([phone])[facility] ([facility])[address] [place] [address] CBC (HEMOGRAM)on 05-01-2024 Erythrocyte distribution width (RBC) [Ratio] 13.3 % Normal 11.5-15.0 [facility] Comment on above: Performed By: #### L AB294 ####Clinical Operations Leader: RAJINDER BUSTILLOS ([phone])[facility] ([facility])[address] [place] [address] Hematocrit (Bld) [Volume fraction] 50.0 % Normal 40.0-52.0 [facility] Comment on above: Performed By: #### L AB294 ####Clinical Operations Leader: RAJINDER BUSTILLOS ([phone])[facility])[address] [place] [address] Hemoglobin (Bld) [Mass/Vol] 17.0 g/dL Normal 13.0-18.0 [facility] Comment on above: Performed By: #### L AB294 ####Clinical Operations Leader: RAJINDER [phone])[facility] ([facility])[address] [place] [address] MCH (RBC) [Entitic mass] 34.1 pg High 26.0-34.0 [facility] Comment on above: Performed By: #### L AB294 ####Clinical Operations Leader: RAJINDER BUSTILLOS ([phone])[facility] ([facility])[address] [place] [address] MCHC 34.0 % Normal 30.5-36.0 [facility] Comment on above: Performed By: #### L AB294 ####Clinical Operations Leader: RAJINDER BUSTILLOS ([phone])[facility] ([facility])[address] [place] [address] MCV (RBC) [Entitic vol] 100.2 fL High 77.0-99.[address] [facility] Comment on above: Performed By: #### L AB294 ####Clinical Operations Leader: RAJINDER BUSTILLOS ([phone])[facility] ([facility])[address] [place] [address] Platelet mean volume (Bld) [Entitic vol] 11.3 fL Normal 9.0-12.7 [facility] Comment on above: Performed By: #### L AB294 ####Clinical Operations Leader: RAJINDER BUSTILLOS ([phone])[facility] ([facility])[address] [place] [address] Platelets (Bld) [#/Vol] 216 10*3/uL Normal 140-440 [facility] Comment on above: Performed By: #### L AB294 ####Clinical Operations Leader: RAJINDER BUSTILLOS ([phone])[facility] ([facility])[address] [place] [address] RBC (Bld) [#/Vol] 4.99 10*6/uL Normal 4.40-5.90 [facility] Comment on above: Performed By: #### L AB294 ####Clinical Operations Leader: RAJINDER BUSTILLOS ([phone])[facility] ([facility])[address] [place] [address] [place] WBC (Bld) [#/Vol] 8.2 10*3/uL Normal 3.6-10.7 [facility] Comment on above: Performed By: #### L AB294 ####Clinical Operations Leader: RAJINDER BUSTILLOS ([phone])[facility] ([facility])[address] [place] [address] HEMOGLOBIN A1Con 05-01-2024 Glucose [Mass/Vol] 163 mg/dL Normal [facility] Comment on above: Result Comment: ORDE R COMMENTS: HbA1c values of 5.7-6.4 percent indicate an increased risk for developing diabetes mellitus. HbA1c values greater than or equal to 6.5 percent are diagnostic of diabetes mellitus. For diagnosis of diabetes in individuals without unequivocal hyperglycemia, results should be confirmed by repeat testing. Performed By: #### L AB90 #### Clinical Operations Leader: RAJINDER BUSTILLOS ([phone]) [facility] ([facility]) [address] [place] [address] HEMOGLOBIN A1C 7.3 %HbA1C High <5.7 [facility] Comment on above: Result Comment: Norm al less than 5.7% Prediabetes 5.7% to 6.4% Diabetes 6.5% or higher --HgbA1C levels may not be accurate in patients who have renal disease, received recent blood transfusions, are anemic, or who have dyshemoglobinemia. Performed By: #### L AB90 #### Clinical Operations Leader: RAJINDER BUSTILLOS ([phone]) [facility]) [address] [place] [address] Progress Noteon 05-01-2024 Progress Note [facility]ING Cathy Aguirre : 1960 Primary Care Physician: AMY MANLEY The patient and/or family/surrogate voluntarily agreed to participate in ACP services. Patient?s cognitive capacity: Patient is Alert and Clark[place] to person, place and time Code Status: [x] [FULL CODE - Continue all advanced life support: CPR,intubation,invas jimena procedures] [_] [DNR-CCA - DO NOT do CPR, intubation] [_] [DNR-WOOD TANK ERECTOR - Comfort care only] [_] DNR form [was/was not] signed Summary of discussion: The patient health care POA/ surrogate is the following: None. [Condition that instigated the ACP on this DOS, relevant PMH, functional status, goals of care, and whom this was discussed with including names and relationship to the patient, and any relevant advance care documentation discussion] I answered all the patient/family questions that I could within the range and scope of the current medical situation. We discussed the medical conditions, risks, benefits, outcomes, and goals of care at this time for the patient's medical issues at hand in the face of the patient's chronic issues and current presentation. Total time spent: 2 minutes were spent discussing the patient's resuscitation status, advance care planning, and end of life care, with patient and/or family/surrogate. Marisabel Guillen APRN - [facility] 05/01/2024, 5:39 PM Normal [facility] [id number] 03-27-2024 [facility]. COMMENT Normal . [facility] Comment on above: Order Comment: [id number] 8CORTISOL A.M. Result Comment: Test Ordered: [id number] Cortisol - AM Cortisol - AM 1.6 [L ] ug/dL Reference Range: 6.2-19.4 Performed at: - [facility] [address] [id number] Project Product Manager: Teofilo Arteaga PhD, Phone: [phone] Performed By: #### L 632.6039, L500.4050, L502.0250 #### [facility] [address] [place], [place], [address] Cortisol, 24 HR UR Freeon CORTISOL,F/24hr Normal 0-50 [facility] Comment on above: Order Comment: Order Date: 03/15/24Order Info: [id number] - CORTU Result Comment: JONES ENT DID HAVE ANY URINE WITH THEM AT TIME OF VISIT, HAD A CORTISOL DONE Performed By: #### L 232.1663, L500.4050, L502.0250 #### [facility] [address] [place], [address] CORTISOL,U FREE Normal Not Establ. [facility] Comment on above: Order Comment: Order Date: 03/15/24Order Info: [id number] - CORTU Result Comment: JONES ENT DID HAVE ANY URINE WITH THEM AT TIME OF VISIT, HAD A CORTISOL DONE Performed By: #### L 501.9985, L500.4050, L502.0250 #### [facility] [address] [place], [address] Adrenocorticotropic Hormoneo n 03-17-2024 ACTH 17.9 pg/mL Normal 7.2-63.3 [facility] Comment on above: Order Comment: Order Date: 03/15/24Order Info: [id number] - ACTHN Result Comment: ACTH reference interval for samples collected between 7 and 10 AM. Performed at: [address] [id number] Project Product Manager: Teofilo Arteaga PhD, Phone: [phone] Performed By: #### L 501.9985, L500.4050, L502.0250 #### [facility] [address] [place], [address] CORTISOL SERUMon 03-16-2024 CORTISOL 10.60 ug/dL Normal 3.44-22.45 [facility] Comment on above: Result Comment: Adul t (AM) 5.27 - 22.45 ug/dL Adult (PM) 3.44 - 16.76 ug/dL Performed By: #### L 501.9985, L500.4050, L502.0250 #### [facility] [address] [place], [address] Comprehensive Metabolic Prof ilon 03-15-2024 Albumin [Mass/Vol] 3.7 g/dL Normal 3.2-5.0 [facility] Comment on above: Order Comment: Order Date: 03/15/24 Order Info: 0786-1 - CMP Performed By: #### L 501.1200, L502.0500, L501.9985, L500.4050 #### [facility] [address] [place], [address] Albumin/Globulin [Mass ratio] 0.9 {ratio} Normal 0.9-2.4 [facility] Comment on above: Order Comment: Order Date: 03/15/24 Order Info: 0786-1 - CMP Performed By: #### L 501.1200, L502.0500, L501.9985, L500.4050 #### [facility] [address] [place], [address] ALK P 51 U/L Normal 45-117 [facility] Comment on above: Order Comment: Order Date: 03/15/24 Order Info: 0786-1 - CMP Performed By: #### L 501.1200, L502.0500, L501.9985, L500.4050 #### [facility] [address] [place], [address] ALT [Catalytic activity/Vol] 36 U/L Normal 16-61 [facility] Comment on above: Order Comment: Order Date: 03/15/24 Order Info: 0786-1 - CMP Performed By: #### L 501.1200, L502.0500, L501.9985, L500.4050 #### [facility] [address] [place], [address] AST [Catalytic activity/Vol] 27 U/L Normal 15-37 [facility] Comment on above: Order Comment: Order Date: 03/15/24 Order Info: 0786-1 - CMP Performed By: #### L 501.1200, L502.0500, L501.9985, L500.4050 #### [facility] [address] [place], [address] Bilirubin [Mass/Vol] 0.90 mg/dL Normal 0.20-1.00 [facility] Comment on above: Order Comment: Order Date: 03/15/24 Order Info: 0786-1 - CMP Result Comment: For patients on eltrombopag therapy, use of Dimension Anderson TBIL is not recommended. Performed By: #### L 501.1200, L502.0500, L501.9985, L500.4050 #### [facility] [address] [place], [address] BUN/CRE 25.6 RATIO High 10-20 [facility] Comment on above: Order Comment: Order Date: 03/15/24 Order Info: 0786-1 - CMP Performed By: #### L 501.1200, L502.0500, L501.9985, L500.4050 #### [facility] [address] [place], [address] CA,Total 9.6 mg/dL Normal 8.5-10.1 [facility] Comment on above: Order Comment: Order Date: 03/15/24 Order Info: 0786-1 - CMP Performed By: #### L 501.1200, L502.0500, L501.9985, L500.4050 #### [facility] [address] [place], [address] Chloride [Moles/Vol] 99 mmol/L Normal 98-107 [facility] Comment on above: Order Comment: Order Date: 03/15/24 Order Info: 0786-1 - CMP Performed By: #### L 501.1200, L502.0500, L501.9985, L500.4050 #### [facility] [address] [place], [address] CO2 [Moles/Vol] 31.0 mmol/L Normal 21.0-32.0 [facility] Comment on above: Order Comment: Order Date: 03/15/24 Order Info: 0786-1 - CMP Performed By: #### L 501.1200, L502.0500, L501.9985, L500.4050 #### [facility] [address] [place], [address] Creatinine [Mass/Vol] 1.60 mg/dL High 0.70-1.30 [facility] Comment on above: Order Comment: Order Date: 03/15/24 Order Info: 0786-1 - CMP Result Comment: The validity of the calculated GFR GFRAA in patients over 70 years has not been determined. Clinical correlation is essential. Performed By: #### L 501.1200, L502.0500, L501.9985, L500.4050 #### [facility] [address] [place], [address] EST GFR - AA 57 mL/min Low >60 [facility] Comment on above: Order Comment: Order Date: 03/15/24 Order Info: 0786-1 - CMP Result Comment: Afri can [place] GFR Calc Performed By: #### L 501.1200, L502.0500, L501.9985, L500.4050 #### [facility] [address] [place], [address] GAP 4 Low 5-15 [facility] Comment on above: Order Comment: Order Date: 03/15/24 Order Info: 0786-1 - CMP Performed By: #### L 501.1200, L502.0500, L501.9985, L500.4050 #### [facility] [address] [place], [address] GFR/1.73 sq M.predicted among non-blacks MDRD (S/P/Bld) [Vol rate/Area] 47 mL/min/{1.73_m2} Low >60 [facility] Comment on above: Order Comment: Order Date: 03/15/24 Order Info: 0786-1 - CMP Result Comment: Non- GFR Calc Performed By: #### L 501.1200, L502.0500, L501.9985, L500.4050 #### [facility] [address] [place], [address] Globulin (S) [Mass/Vol] 4.0 g/dL Normal 2.2-4.2 [facility] Comment on above: Order Comment: Order Date: 03/15/24 Order Info: 0786-1 - CMP Performed By: #### L 501.1200, L502.0500, L501.9985, L500.4050 #### [facility] [address] [place], [address] Glucose [Mass/Vol] 160 mg/dL High 74-106 [facility] Comment on above: Order Comment: Order Date: 03/15/24 Order Info: 0786-1 - CMP Result Comment: Fast ing Glucose result greater than or equal to 126 mg/dL suggests DIABETES MELLITUS per A.D.A. criteria. Performed By: #### L 501.1200, L502.0500, L501.9985, L500.4050 #### [facility] [address] [place], [address] Potassium [Moles/Vol] 4.5 mmol/L Normal 3.5-5.1 [facility] Comment on above: Order Comment: Order Date: 03/15/24 Order Info: 0786-1 - CMP Performed By: #### L 501.1200, L502.0500, L501.9985, L500.4050 #### [facility] [address] [place], [address] Sodium [Moles/Vol] 134 mmol/L Low 136-145 [facility] Comment on above: Order Comment: Order Date: 03/15/24 Order Info: 0786-1 - CMP Performed By: #### L 501.1200, L502.0500, L501.9985, L500.4050 #### [facility] [address] [place], [address] T PROT 7.7 g/dL Normal 6.4-8.2 [facility] Comment on above: Order Comment: Order Date: 03/15/24 Order Info: 0786-1 - CMP Performed By: #### L 501.1200, L502.0500, L501.9985, L500.4050 #### [facility] [address] [place], [address] Urea nitrogen [Mass/Vol] 41 mg/dL High 7-18 [facility] Comment on above: Order Comment: Order Date: 03/15/24 Order Info: 0786-1 - CMP Performed By: #### L 501.1200, L502.0500, L501.9985, L500.4050 #### [facility] [address] [facility], [address] Creatinine, Urine (random)on 03-15-2024 UR CREAT 77.30 mg/dL Normal NO RANGE EST. [facility] Comment on above: Order Comment: Order Date: 03/15/24 Order Info: [id number] - CREATU Order Info: [id number] - ALBU Performed By: #### L 501.1200, L502.0500, L501.9985, L500.4050 #### [facility] [address] [facility] [place], [address] Hemoglobin A1con 03-15-2024 HbA1c (Bld) [Mass fraction] 7.4 % High 3.8-5.6 [facility] Comment on above: Order Comment: Order Date: 03/15/24 Order Info: 4548-4 - A1C Result Comment: Norm al < 5.7 % Prediabetic 5.7 - 6.4 % Diabetic >or= 6.5 % Please note range changes. Performed By: #### L 501.1200, L502.0500, L501.9985, L500.4050 #### [facility] [address] [place], [address] Microalbumin,Random Urineon 03-15-2024 MICROALBUMIN,UR 46.5 mg/L Normal NO RANGE EST. [facility] Comment on above: Order Comment: Order Date: 03/15/24 Order Info: 216-8 - CREATU Order Info: [id number] - ALBU Performed By: #### L 501.1200, L502.0500, L501.9985, L500.4050 #### [facility] [address] [place], [address] 36on 03-11-[address] Manley's office will be faxing lab results. Las A1C was done 01/04/24 and was 6.9 Normal [facility] 36 ----- Message from Fely Sanchez MD sent at 03/08/2024 5:27 PM EST ----- Please get a recent hemoglobin A1c from his PCP for review, must be less than 8 to proceed with elective surgery. Normal [facility] Office Visiton 03-08-2024 Follow-up visit [id number] Cathy Aguirre 1960 M Date Provider Department Center 03/08/2024 [id number] [facility]ANC[facility] ALS None Family History Problem Relation Age of Onset Heart attack Mother Heart failure Mother Heart attack Father No Known Problems Brother No Known Problems Brother No Known Problems Daughter No Known Problems Daughter Diabetes Sister No Known Problems Sister Family Status - Relation Status Age at Mother Father Brother Alive Brother Alive Daughter Alive Daughter Alive Sister Sister Alive Level of Service:65319 [place] OFFICE/OUTPATIENT NEW MODERATE MDM 45 MINUTES Reason for Visit and Comments: New Patient [542] - ALS BUSINESS ACCOUNT LEADER REFERRAL DR MANLEY - UMBILICAL HERNIA Normal [facility] Progress Noteon 03-08-2024 Progress Note Called pt to schedule, LVM [facility] Progress Note [facility] - Surgery [facility] Surgery Patient Name: Cathy Aguirre Date: 03/08/24 HPI: Cathy Aguirre is a 63 y.o. male who presents with umbilical hernia. Has been present for 8 years. Has gradually increased in size and becoming more bothersome. He has noticed skin color changes and purpleish color. He states that because of the increasing symptoms he wishes to proceed with intervention. Denies n/v or change in bowel habits. 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 No previous abdominal surgeries. H/o CKD, Gout, HTN, DAVID, DM (is on Farxiga). He does not smoke. 12 pack beer per week. I personally reviewed the patient intake form and discussed the ROS with the patient. The ROS is negative except for what is listed in HPI. Dr Manley OV note 01/08/24 reviewed PMHx: Past Medical History: Diagnosis Date Adverse effect of metformin CKD (chronic kidney disease) Colon polyps Diabetes (HCC) Elevated prostate specific antigen (PSA) Erectile dysfunction Gout Hypertension Obesity Osteoarthritis Patellar bursitis of right knee Quadriceps tendonitis Sleep apnea Umbilical hernia PSHx: Past Surgical History: Procedure Laterality Date COLONOSCOPY 2022 LIPOMA EXCISION (HISTORICAL) Dr Rivera SHOULDER ARTHROSCOPY Right VASECTOMY PFMHx: Family History Problem Relation Name Age of Onset Heart attack Mother Heart failure Mother Heart attack Father No Known Problems Brother marianne No Known Problems Brother teofilo No Known Problems Daughter oliva No Known Problems Daughter sanju Diabetes Sister No Known Problems Sister niharika ALL: Allergies Allergen Reactions Bee Venom Other Reaction(s): Anaphylaxis Hazelnut MEDS: Current Outpatient Medications Medication Sig Dispense Refill allopurinol (Zyloprim) 300 MG tablet Take 300 mg by mouth daily. calcium carbonate-cholecalci ferol (Oyster Shell) 250-3.125 MG-MCG tablet Take 1 tablet by mouth. Calcium Citrate-Vitamin D 315-5 MG-MCG tablet Take by mouth. carvedilol (Coreg) 25 MG tablet Take 25 mg by mouth 2 times daily. Chromium Picolinate 400 MCG tablet Take by mouth. citric acid-potassium citrate (Polycitra) 1100-334 MG/5ML solution Take by mouth 3 times daily (with meals). dapagliflozin (Farxiga) 10 MG tablet Take 10 mg by mouth daily. Flaxseed, Linseed, (Flax Seed Oil) 1000 MG capsule Take 1,000 mg by mouth. fluticasone (Flonase) 50 MCG/ACT nasal spray Administer 1 spray into affected nostril(s). omega-3 acid ethyl esters (Lovaza) 1 g capsule Take 1 g by mouth 2 times daily. potassium citrate CR (Urocit-K-10) 10 mEq ER tablet Take by mouth. ramipril (Altace) 10 MG capsule spironolactone-hydro CHLOROthiazide (Aldactazide) 25-25 MG tablet Take 1 tablet by mouth daily. tadalafil (Adcirca) 20 MG tablet No current facility-administere d medications for this visit. SOCIAL Hx: Social History Socioeconomic History Marital status: Spouse name: Not on file Number of children: Not on file Years of education: Not on file Highest education level: Not on file Occupational History Not on file Tobacco Use Smoking status: Never Smokeless tobacco: Never Substance and Sexual Activity Alcohol use: Yes Alcohol/week: 12.0 standard drinks of alcohol Types: 12 Cans of beer per week Comment: 12 pack per week Drug use: Never Sexual activity: Not on file Other Topics Concern Not on file Social History Narrative Not on file Social Drivers of Health Financial Resource Strain: Not on file Food Insecurity: Not on file Transportation Needs: Not on file Physical Activity: Not on file Stress: Not on file Social Connections: Not on file Intimate Partner Violence: Not on file Housing Stability: Not on file Physical Examination: BP (!) 177/83 (BP Location: Right arm, Patient Position: Sitting, BP Cuff Size: Large adult) Pulse 98 Temp 36.9 ?C (98.4 ?F) Ht 5' 11 (1.803 m) Wt 297 lb (135 kg) BMI 41.42 kg/m? He stands Height: 5' 11 (180.3 cm) tall with a weight of Weight: 297 lb (135 kg) , resulting in a BMI of Body mass index is 41.42 kg/m?.. General: The patient is awake, alert, and oriented, and is in no apparent distress. Cardiac: Regular rate and rhythm Respiratory: No respiratory distress. Clear to auscultation bilaterally. Abdomen: Central obesity. Soft, non tender, non distended. BS present -no prior abdominal surgery, no scars are noted Extremities: Ambulatory without assistance. Skin: No rashes or lesions noted. Hernia: Non tender, only partially reducible umbilical hernia-purpleish skin discoloration He will not need medical risk stratification from his primary care physician. We will proceed with surgical intervention. I met with the patient today to discuss risks and benefits of laparoscopic ventral/incisional herniorrhaphy, including, but not limited to conversion to (more content not included)... Normal [facility] Progress Note We want to inform you that your patient's blood pressure was noted to be elevated in our office today. We thank you for trusting us with your patient's health. Last BP: 03/08/24: 177/83 BP Readings from Last 3 Encounters: No data found for BP Normal [facility] Progress Note Sx scheduled 05/03, case entered, paperwork mailed Normal [facility] 36on 01-09-2024 36 LM for patient to return call to schedule a BUSINESS ACCOUNT LEADER Appt with Dr. Danyell THRASHER [facility] Hemoglobin A1con 01-04-2024 HbA1c (Bld) [Mass fraction] 6.9 % High 3.8-5.6 [facility] Comment on above: Order Comment: Order Date: 01/04/24 Order Info: [id number] - A1C Result Comment: Norm al < 5.7 % Prediabetic 5.7 - 6.4 % Diabetic >or= 6.5 % Please note range changes. Performed By: #### L 501.9520, L501.9985, L500.4100, L502.0250, L501.9910, L501.1400 #### [facility] [address]. [place], [place], [id number] Lipid Profileon 01-04-2024 Cholesterol [Mass/Vol] 167 mg/dL Normal 200 [facility] Comment on above: Order Comment: Order Date: 01/04/24 Order Info: [id number] - LIPID Order Info: [id number] - URIC Order Info: [id number] - TSH Order Info: [id number] - PSA Result Comment: <200 mg/dL Desirable 200-240 mg/dL Borderline >240 mg/dL High Risk Performed By: #### L 501.9520, L501.9985, L500.4100, L502.0250, L501.9910, L501.1400 #### [facility] [address]. [place], [place], [id number] Cholesterol in HDL [Mass/Vol] 46 mg/dL Normal [facility] Comment on above: Order Comment: Order Date: 01/04/24 Order Info: [id number] - LIPID Order Info: [id number] - URIC Order Info: [id number] - TSH Order Info: [id number] - PSA Result Comment: The drugs N-Acetylcysteine and Metamizole may falsely depress this assay. Reference Range HDL <40 mg/dL Low HDL Cholesterol HDL >or= 60 mg/dL High HDL Cholesterol Performed By: #### L [id number], L501.9985, L500.4100, L502.0250, L501.9910, L501.1400 #### [facility] [address] [place], [address] Cholesterol in LDL [Mass/Vol] 84 mg/dL Normal 0-130 [facility] Comment on above: Order Comment: Order Date: 01/04/24 Order Info: [id number] - LIPID Order Info: [id number] - URIC Order Info: [id number] - TSH Order Info: [id number] - PSA Performed By: #### L 501.9520, L501.9985, L500.4100, L502.0250, L501.9910, L501.1400 #### [facility] [address] [place], [address] Cholesterol in VLDL [Mass/Vol] 37 mg/dL Normal 5-40 [facility] Comment on above: Order Comment: Order Date: 01/04/24 Order Info: - LIPID Order Info: [id number] - URIC Order Info: [id number] - TSH Order Info: [id number] - PSA Performed By: #### L 501.9520, L501.9985, L500.4100, L502.0250, L501.9910, L501.1400 #### [facility] [address] [place], [address] Triglyceride [Mass/Vol] 183 mg/dL Normal [facility] Comment on above: Order Comment: Order Date: 01/04/24 Order Info: - LIPID Order Info: [id number] - URIC Order Info: [id number] - TSH Order Info: [id number] - PSA Result Comment: The drugs N-Acetylcysteine and Metamizole may falsely depress this assay. Serum Triglycerides Reference Interval Normal <150 mg/dL Borderline high 150 - 199 mg/dL High 200 - 499 mg/dL Very High > or = 500 mg/dL Performed By: #### L 501.9520, L501.9985, L500.4100, L502.0250, L501.9910, L501.1400 #### [facility] [address] [place], [address] Microalb:Creat Ratio,Random URon 01-04-2024 Creatinine [Mass/Vol] 52.20 mg/dL Normal NO RANGE EST. [facility] Comment on above: Order Comment: Order Date: 01/04/24 Order Info: [id number] - MIACRE Performed By: #### L [id number], L501.9985, L500.4100, L502.0250, L501.9910, L501.1400 #### [facility] [address] [place], [address] MALB:CRE 187.5 mg/g CRE High <30 mg/g CRE [facility] Comment on above: Order Comment: Order Date: 01/04/24 Order Info: [id number] - MIACRE Performed By: #### L 501.9520, L501.9985, L500.4100, L502.0250, L501.9910, L501.1400 #### [facility] [address] [place], [address] MICROALBUMIN,UR 97.9 mg/L Normal NO RANGE EST. [facility] Comment on above: Order Comment: Order Date: 01/04/24 Order Info: [id number] - MIACRE Performed By: #### L 501.9520, L501.9985, L500.4100, L502.0250, L501.9910, L501.1400 #### [facility] [address] [place], [address] PSA,Total - Annual Screenon 01-04-2024 PSA,TOT SCREEN 1.58 ng/mL Normal 0.00-4.00 [facility] Comment on above: Order Comment: Order Date: 01/04/24Order Info: [id number] - LIPIDOrder Info: [id number] - URICOrder Info: [id number] - TSHOrder Info: [id number] - PSA Result Comment: This test was performed using the TPSA assay method for the [employer] chemistry system. Values obtained with different assay methods cannot be used interchangably. When changing PSA assays in the course of monitoring a patient, additional sequential testing should be carried out to confirm baseline values. Performed By: #### L 501.9985, L500.4050, L502.0250 #### [facility] [address] [place], [address] Thyroid Stim Hormone (TSH)on 01-04-2024 TSH 0.864 uIU/mL Normal 0.358-3.740 [facility] Comment on above: Order Comment: Order Date: 01/04/24Order Info: [id number] - LIPIDOrder Info: [id number] - URICOrder Info: [id number] - TSHOrder Info: [id number] - PSA Performed By: #### L 501.9985, L500.4050, L502.0250 #### [facility] [address] [place], [address] Uric Acidon 01-04-2024 URIC 3.9 mg/dL Normal 3.5-7.2 [facility] Comment on above: Order Comment: Order Date: 01/04/24Order Info: [id number] - LIPIDOrder Info: [id number] - URICOrder Info: [id number] - TSHOrder Info: [id number] - PSA Result Comment: The drugs N-Acetylcysteine and Metamizole may falsely depress this assay. Performed By: #### L 501.9985, L500.4050, L502.0250 #### [facility] [address] [place], [address] Absolute lymphocyte countOrd ered By: Amy Manley on 06-15-2023 Lymphocytes Auto (Unsp spec) [#/Vol] 1.94 10*3/uL 0.83-4.51 [facility] Automated lymphocyte count a s percentage of total leukocytesOrdered By: Amy Manley on 06-15-2023 Lymphocytes/100 WBC Auto (Unsp spec) 26.8 % 19-41 [facility] Basophil percentageOrdered B y: Amy Manley on 06-15-2023 Basophils/100 WBC (Bld) 1.2 % 0-1 [facility] Bilirubin [Mass/Vol] 0.90 mg/dL 0.20-1.00 [facility] Comment on above: For patients on eltr ombopag therapy, use of Dimension Anderson TBIL is not recommended. Chloride [Moles/Vol] 100 mmol/L 98-107 [facility] Eosinophils/100 WBC (Bld) 4.0 % 0-5 [facility] Glucose [Mass/Vol] 158 mg/dL 74-106 [facility] Comment on above: Fasting Glucose resu lt greater than or equal to 126 mg/dL suggests DIABETES MELLITUS per A.D.A. criteria. Hemoglobin (Bld) [Mass/Vol] 17.4 g/dL 13.0-16.5 [facility] Monocytes/100 WBC (Bld) 8.7 % 0-10 [facility] Neutrophils (Bld) [#/Vol] 4.3 10*3/uL 2.0-7.7 [facility] Neutrophils/100 WBC (Bld) 59.0 % 47-70 [facility] Potassium [Moles/Vol] 4.0 mmol/L 3.5-5.1 [facility] Protein [Mass/Vol] 7.6 g/dL 6.4-8.2 [facility] Sodium [Moles/Vol] 133 mmol/L 136-145 [facility] WBC (Bld) [#/Vol] 7.2 10*3/uL 4.4-11.0 [facility] Determination of erythrocyte mean corpuscular volume (MCV)Ordered By: Amy Manley on 06-15-2023 MCV (RBC) [Entitic vol] 97.7 fL 80-94 [facility] Erythrocyte distribution wid th ratioOrdered By: Amy Manley on 06-15-2023 Erythrocyte distribution width (RBC) [Ratio] 13.7 % 11.6-14.6 [facility] Erythrocyte distribution wid th standard deviationOrdered By: Amy Manley on 06-15-2023 Erythrocyte distribution width (RBC) [Entitic vol] 49.5 fL 35.1-43.9 [facility] Hematocrit Auto (Bld) [Volum e fraction]Ordered By: Amy Manley on 06-15-2023 Hematocrit (Bld) [Volume fraction] 51.6 % 40-54 [facility] Immature granulocytes/100 WB C Auto (Bld)Ordered By: Amy Manley on 06-15-2023 Immature granulocytes/100 WBC (Bld) 0.300 % 0.0-0.9 [facility] Comment on above: IG% - Immature Granu locytes (promyelocytes, myelocytes and metamyelocytes) > 1% indicates that a LEFT SHIFT is Present. Laboratory - Chemistry and C hemistry - challengeOrdered By: Amy Manley on 06-15-2023 Albumin/Globulin [Mass ratio] 0.9 {ratio} 0.9-2.4 [facility] ALP [Catalytic activity/Vol] 67 U/L 45-117 [facility] ALT [Catalytic activity/Vol] 53 U/L 16-61 [facility] CO2 [Moles/Vol] 25.0 mmol/L 21.0-32.0 [facility] Globulin (S) [Mass/Vol] 4.0 g/dL 2.2-4.2 [facility] Magnesium [Mass/Vol] 2.4 mg/dL 1.6-2.6 [facility] Urea nitrogen/Creatinine [Mass ratio] 15.0 mg/mg 10-20 [facility] - Hematology and Cell countsOrdered By: Amy Manley on 06-15-2023 MCH (RBC) [Entitic mass] 33.0 pg 27.0-32.0 [facility] MCHC (RBC) [Mass/Vol] 33.7 g/dL 32-36 [facility] Nucleated RBC/100 WBC (Bld) [Ratio] 0 % 0-5 [facility] Platelet mean volume (Bld) [Entitic vol] 11.4 fL 6.2-12.0 [facility] Platelets (Bld) [#/Vol] 199 10*3/uL 150-450 [facility] No Panel InformationOrdered By: Amy Manley on 06-15-2023 Estimated GFR (MDRD) Amer 66 mL/min >60 [facility] Comment on above: GFR Calc Estimated GFR (MDRD) Non-Af Amer 55 mL/min >60 [facility] Comment on above: Non- GFR Calc Urine Microalbumin/Creatinine Ratio 213.3 mg/g CRE <30 [facility] RBC Auto (Bld) [#/Vol]Ordere d By: Amy Manley on 06-15-2023 RBC (Bld) [#/Vol] 5.28 10*6/uL 4.6-6.2 [facility] Serum or plasma calcium john urement (mass/volume)Ordered By: Amy Manley on 06-15-2023 Calcium [Mass/Vol] 9.0 mg/dL 8.5-10.1 [facility] Serum or plasma creatinine m easurement (mass/volume)Ordered By: Amy Manley on 06-15-2023 Creatinine [Mass/Vol] 1.40 mg/dL 0.70-1.30 [facility] Comment on above: The validity of the calculated GFR & GFRAA in patients over 70 years has not been determined. Clinical correlation is essential. Serum or plasma urea nitroge n measurement (mass/volume)Ordered By: Amy Manley on 06-15-2023 Urea nitrogen [Mass/Vol] 21 mg/dL 7-18 [facility] Thin prep Papanicolaou smear with manual screeningOrdered By: Amy Manley on 06-15-2023 Thin prep Papanicolaou smear with manual screening 3.6 g/dL 3.2-5.0 [facility] Thin prep Papanicolaou smear with manual screening 38 U/L 15-37 [facility] Thin prep Papanicolaou smear with manual screening 8 5-15 [facility] Thin prep Papanicolaou smear with manual screening 106.0 mg/L NO RANGE EST. [facility] Urine creatinine measurement (mass/volume)Ordered By: Amy Manley on 06-15-2023 Creatinine (U) [Mass/Vol] 49.70 mg/dL NO RANGE EST. [facility] Whole blood hemoglobin A1c/t otal hemoglobin ratio (mass fraction)Ordered By: Amy Manley on 06-15-2023 HbA1c (Bld) [Mass fraction] 6.8 % 3.8-5.6 [facility] Comment on above: Normal < 5.7 % Predi abetic 5.7 - 6.4 % Diabetic >or= 6.5 % Please note range changes. Absolute lymphocyte countOrd ered By: Amy Manley on 12-01-2022 Lymphocytes Auto (Unsp spec) [#/Vol] 2.19 10*3/uL 0.83-4.51 [facility] Basophil percentageOrdered B y: Amy Manley on 12-01-2022 Basophils/100 WBC (Bld) 1.2 % 0-1 [facility] Bilirubin [Mass/Vol] 0.60 mg/dL 0.20-1.00 [facility] Comment on above: For patients on eltr ombopag therapy, use of Dimension Anderson TBIL is not recommended. Chloride [Moles/Vol] 102 mmol/L 98-107 [facility] Cholesterol [Mass/Vol] 157 mg/dL <200 [facility] Comment on above: <200 mg/dL Desirable 200-240 mg/dL Borderline >240 mg/dL High Risk Eosinophils/100 WBC (Bld) 4.3 % 0-5 [facility] Glucose [Mass/Vol] 161 mg/dL 74-106 [facility] Comment on above: Fasting Glucose resu lt greater than or equal to 126 mg/dL suggests DIABETES MELLITUS per A.D.A. criteria. Neutrophils (Bld) [#/Vol] 3.8 10*3/uL 2.0-7.7 [facility] Neutrophils/100 WBC (Bld) 55.2 % 47-70 [facility] Potassium [Moles/Vol] 4.2 mmol/L 3.5-5.1 [facility] Protein [Mass/Vol] 7.9 g/dL 6.4-8.2 [facility] Sodium [Moles/Vol] 136 mmol/L 136-145 [facility] Triglyceride [Mass/Vol] 159 mg/dL <199 [facility] Comment on above: The drugs N-Acetylcy steine and Metamizole may falsely depress this assay.Serum Triglycerides Reference Interval Normal <150 mg/dL Borderline high 150 - 199 mg/dL High 200 - 499 mg/dL Very High > or = 500 mg/dL WBC (Bld) [#/Vol] 6.9 10*3/uL 4.4-11.0 [facility] Blood erythrocytes count (nu mber/volume)Ordered By: Amy Manley on 12-01-2022 RBC (Bld) [#/Vol] 5.22 10*6/uL 4.6-6.2 [facility] Blood hemoglobin measurement (mass/volume)Ordered By: Amy Manley on 12-01-2022 Hemoglobin (Bld) [Mass/Vol] 17.3 g/dL 13.0-16.5 [facility] Blood lymphocytes/100 leukoc ytesOrdered By: Amy Manley on 12-01-2022 Lymphocytes/100 WBC (Bld) 31.7 % 19-41 [facility] Blood monocytes/100 leukocyt esOrdered By: Amy Manley on 12-01-2022 Monocytes/100 WBC (Bld) 7.5 % 0-10 [facility] Blood platelet mean volumeOr dered By: Amy Manley on 12-01-2022 Platelet mean volume (Bld) [Entitic vol] 11.5 fL 6.2-12.0 [facility] Determination of erythrocyte mean corpuscular volume (MCV)Ordered By: Amy Manley on 12-01-2022 MCV (RBC) [Entitic vol] 101.7 fL 80-94 [facility] Hematocrit Auto (Bld) [Volum e fraction]Ordered By: Amy Manley on 12-01-2022 Hematocrit (Bld) [Volume fraction] 53.1 % 40-54 [facility] - Chemistry and C hemistry - challengeOrdered By: Amy Manley on 12-01-2022 ALP [Catalytic activity/Vol] 71 U/L 45-117 [facility] ALT [Catalytic activity/Vol] 36 U/L 16-61 [facility] CO2 [Moles/Vol] 27.0 mmol/L 21.0-32.0 [facility] Globulin (S) [Mass/Vol] 4.5 g/dL 2.2-4.2 [facility] Urea nitrogen/Creatinine [Mass ratio] 16.3 mg/mg 10-20 [facility] - Hematology and Cell countsOrdered By: Amy Manley on 12-01-2022 Erythrocyte distribution width (RBC) [Entitic vol] 51.8 fL 35.1-43.9 [facility] Erythrocyte distribution width (RBC) [Ratio] 13.6 % 11.6-14.6 [facility] Immature granulocytes/100 WBC (Bld) 0.100 % 0.0-0.9 [facility] Comment on above: IG% - Immature Granu locytes (promyelocytes, myelocytes and metamyelocytes) > 1% indicates that a LEFT SHIFT is Present. MCH (RBC) [Entitic mass] 33.1 pg 27.0-32.0 [facility] Nucleated RBC/100 WBC (Bld) [Ratio] 0 % 0-5 [facility] MCHC Auto (RBC) [Mass/Vol]Or dered By: Amy Manley on 12-01-2022 MCHC (RBC) [Mass/Vol] 32.6 g/dL 32-36 [facility] No Panel InformationOrdered By: Amy Manley on 12-01-2022 Estimated GFR (MDRD) Amer 73 mL/min >60 [facility] Comment on above: GFR Calc Estimated GFR (MDRD) Non-Af Amer 60 mL/min >60 [facility] Comment on above: Non- GFR Calc Prostate Specific Antigen Screen 1.98 ng/mL 0.00-4.00 [facility] Comment on above: This test was perfor med using the TPSA assay method for the[employer] chemistry system. Values obtained with differentassay methods cannot be used interchangably.When changing PSA assays in the course of monitoring apatient, additional sequential testing should be carriedout to confirm baseline values. Urine Microalbumin/Creatinine Ratio 249.5 mg/g CRE <30 [facility] Platelets bldOrdered By: Brittney Manley on 12-01-2022 Platelets (Bld) [#/Vol] 233 10*3/uL 150-450 [facility] Serum or plasma albumin john urement (mass/volume)Ordered By: Amy Manley on 12-01-2022 Albumin [Mass/Vol] 3.4 g/dL 3.2-5.0 [facility] Serum or plasma albumin/glob ulin mass ratioOrdered By: Amy Manley on 12-01-2022 Albumin/Globulin [Mass ratio] 0.8 {ratio} 0.9-2.4 [facility] Serum or plasma calcium john urement (mass/volume)Ordered By: Amy Manley on 12-01-2022 Calcium [Mass/Vol] 9.0 mg/dL 8.5-10.1 [facility] Serum or plasma cholesterol in HDL measurement (mass/volume)Ordered By: Amy Manley on 12-01-2022 Cholesterol in HDL [Mass/Vol] 42 mg/dL >40 [facility] Comment on above: The drugs N-Acetylcy steine and Metamizole may falsely depress this assay. Reference Range HDL <40 mg/dL Low HDL Cholesterol HDL >or= 60 mg/dL High HDL Cholesterol Serum or plasma cholesterol in VLDL measurement (mass/volume)Ordered By: Amy Manley on 12-01-2022 Cholesterol in VLDL [Mass/Vol] 32 mg/dL 5-40 [facility] Serum or plasma creatinine m easurement (mass/volume)Ordered By: Amy Manley on 12-01-2022 Creatinine [Mass/Vol] 1.29 mg/dL 0.70-1.30 [facility] Comment on above: The validity of the calculated GFR & GFRAA in patients over 70 years has not been determined. Clinical correlation is essential. Serum or plasma low density lipoprotein (LDL) cholesterol measurement (mass/volume)Ordered By: Amy Manley on 12-01-2022 Cholesterol in LDL [Mass/Vol] 83 mg/dL 0-130 [facility] Serum or plasma urea nitroge n measurement (mass/volume)Ordered By: Amy Manley on 12-01-2022 Urea nitrogen [Mass/Vol] 21 mg/dL 7-18 [facility] Serum or plasma uric acid me asurement (mass/volume)Ordered By: Amy Manley on 12-01-2022 Urate [Mass/Vol] 3.8 mg/dL 3.5-7.2 [facility] Comment on above: The drugs N-Acetylcy steine and Metamizole may falsely depress this assay. Thin prep Papanicolaou smear with manual screeningOrdered By: Amy Manley on 12-01-2022 Thin prep Papanicolaou smear with manual screening 24 U/L 15-37 [facility] Thin prep Papanicolaou smear with manual screening 7 5-15 [facility] Thin prep Papanicolaou smear with manual screening 123.0 mg/L NO RANGE EST. [facility] Urine creatinine measurement (mass/volume)Ordered By: Amy Manley on 12-01-2022 Creatinine (U) [Mass/Vol] 49.30 mg/dL NO RANGE EST. [facility] Basophil percentageOrdered B y: Dr. Manley on 05-31-2022 Bilirubin [Mass/Vol] 0.60 mg/dL 0.20-1.00 [facility] Comment on above: For patients on eltr ombopag therapy, use of Dimension Anderson TBIL is not recommended. Chloride [Moles/Vol] 101 mmol/L 98-107 [facility] Glucose [Mass/Vol] 128 mg/dL 74-106 [facility] Comment on above: Fasting Glucose resu lt greater than or equal to 126 mg/dL suggests DIABETES MELLITUS per A.D.A. criteria. Potassium [Moles/Vol] 5.1 mmol/L 3.5-5.1 [facility] Protein [Mass/Vol] 8.0 g/dL 6.4-8.2 [facility] Sodium [Moles/Vol] 132 mmol/L 136-145 [facility] - Chemistry and C hemistry - challengeOrdered By: Dr. Manley on 05-31-2022 ALP [Catalytic activity/Vol] 60 U/L 45-117 [facility] ALT [Catalytic activity/Vol] 38 U/L 16-61 [facility] CO2 [Moles/Vol] 28.0 mmol/L 21.0-32.0 [facility] Globulin (S) [Mass/Vol] 3.8 g/dL 2.2-4.2 [facility] Urea nitrogen/Creatinine [Mass ratio] 24.6 mg/mg 10-20 [facility] No Panel InformationOrdered By: Dr. Manley on 05-31-2022 Estimated GFR (MDRD) Amer 48 mL/min >60 [facility] Comment on above: GFR Calc Estimated GFR (MDRD) Non-Af Amer 39 mL/min >60 [facility] Comment on above: Non- GFR Calc Serum or plasma albumin john urement (mass/volume)Ordered By: Dr. Manley on 05-31-2022 Albumin [Mass/Vol] 4.2 g/dL 3.2-5.0 [facility] Serum or plasma albumin/glob ulin mass ratioOrdered By: Dr. Manley on 05-31-2022 Albumin/Globulin [Mass ratio] 1.1 {ratio} 0.9-2.4 [facility] Serum or plasma calcium john urement (mass/volume)Ordered By: Dr. Manley on 05-31-2022 Calcium [Mass/Vol] 10.0 mg/dL 8.5-10.1 [facility] Serum or plasma creatinine m easurement (mass/volume)Ordered By: Dr. Manley on 05-31-2022 Creatinine [Mass/Vol] 1.87 mg/dL 0.70-1.30 [facility] Comment on above: The validity of the calculated GFR & GFRAA in patients over 70 years has not been determined. Clinical correlation is essential. Serum or plasma urea nitroge n measurement (mass/volume)Ordered By: Dr. Manley on 05-31-2022 Urea nitrogen [Mass/Vol] 46 mg/dL 7-18 [facility] Thin prep Papanicolaou smear with manual screeningOrdered By: Dr. Manley on 05-31-2022 Thin prep Papanicolaou smear with manual screening 27 U/L 15-37 [facility] Thin prep Papanicolaou smear with manual screening 3 5-15 [facility] HISTORY PHYSICALon HISTORY PHYSICAL HNO ID: [id number] Author: Larry Schwartz MD Service: ? Author Type: Physician Type: HANDP Filed: 01/10/2022 10:19 AM Note Text: HISTORY AND PHYSICAL EXAMINATION SERVICE DATE: 01/10/2022 [...] 01/10/22 1014 Medication Sig Last Dose Taking tobramycin-dexAMETHa sone (TOBRADEX) 0.3-0.1 % ophthalmic ointment Use 1 [...] Take 1 tablet by mouth once daily. lisinopriL-hydrochlo rothiazide (PRINZIDE,ZESTORETIC ) 20-12.5 mg per tablet Take 1 tablet [...] the past 6 weeks. No history of respiratory/pulmonar y symptoms or problems Cardiovascular: Positive for: None GI: No history of GI symptoms or problems. No history of esophageal varices, recent ascites, or ETOH greater than 2 drinks per day. : No history of UTI in past 6 weeks. No history of renal failure. Not currently on or requiring dialysis. No history of symptoms or problems. PULMONARY NURSE PRACTITIONER: N/A : N/A Endocrine: No history of [...] psychiatric symptoms or problems. Musculoskeletal: Negative for (more content not included)... Normal [facility] Basophil percentageon 2021 Chloride [Moles/Vol] 96 mmol/L 98-107 [facility] Work Phone: [phone] Glucose [Mass/Vol] 81 mg/dL 74-106 [facility] Work Phone: [phone] Potassium [Moles/Vol] 4.4 mmol/L 3.5-5.1 [facility] Work Phone: [phone] Sodium [Moles/Vol] 134 mmol/L 136-145 [facility] Work Phone: Laboratory - Chemistry and C hemistry - challengeon 10-29-2021 CO2 [Moles/Vol] 29.0 mmol/L 21.0-32.0 [facility] Work Phone: Urea nitrogen/Creatinine [Mass ratio] 26.2 mg/mg 10-20 [facility] Work Phone: No Panel Informationon 10-29 Estimated GFR (MDRD) Amer 72 mL/min >60 [facility] Work Phone: Comment on above: GFR Calc Estimated GFR (MDRD) Non-Af Amer 60 mL/min >60 [facility] Work Phone: Comment on above: Non- GFR Calc Serum or plasma calcium john urement (mass/volume)on 10-29-2021 Calcium [Mass/Vol] 9.7 mg/dL 8.5-10.1 [facility] Work Phone: Serum or plasma creatinine m easurement (mass/volume)on 10-29-2021 Creatinine [Mass/Vol] 1.30 mg/dL 0.70-1.30 [facility] Work Phone: Comment on above: The validity of the calculated GFR & GFRAA in patients over 70 years has not been determined. Clinical correlation is essential. Serum or plasma urea nitroge n measurement (mass/volume)on 10-29-2021 Urea nitrogen [Mass/Vol] 34 mg/dL 7-18 [facility] Work Phone: Thin prep Papanicolaou smear with manual screeningon 10-29-2021 Thin prep Papanicolaou smear with manual screening 9 5-15 [facility] Work Phone: Absolute lymphocyte counton 09-07-2021 Lymphocytes Auto (Unsp spec) [#/Vol] 1.88 10*3/uL 0.83-4.51 [facility] Work Phone: Basophil percentageon 2021 Basophils/100 WBC (Bld) 1.4 % 0-1 [facility] Work Phone: Bilirubin [Mass/Vol] 1.00 mg/dL 0.20-1.00 [facility] Work Phone: Comment on above: For patients on eltr ombopag therapy, use of Dimension Anderson TBIL is not recommended. Chloride [Moles/Vol] 100 mmol/L 98-107 [facility] Work Phone: Eosinophils/100 WBC (Bld) 5.9 % 0-5 [facility] Work Phone: Glucose [Mass/Vol] 117 mg/dL 74-106 [facility] Work Phone: Comment on above: Fasting Glucose resu lt from 100 to 125 mg/dL suggests IMPAIRED HOMEOSTASIS per A.D.A. criteria. Neutrophils (Bld) [#/Vol] 3.7 10*3/uL 2.0-7.7 [facility] Work Phone: Neutrophils/100 WBC (Bld) 56.3 % 47-70 [facility] Work Phone: Potassium [Moles/Vol] 3.2 mmol/L 3.5-5.1 [facility] Work Phone: Protein [Mass/Vol] 7.8 g/dL 6.4-8.2 [facility] Work Phone: Sodium [Moles/Vol] 136 mmol/L 136-145 [facility] Work Phone: WBC (Bld) [#/Vol] 6.6 10*3/uL 4.4-11.0 [facility] Work Phone: Blood erythrocytes count (nu mber/volume)on 09-07-2021 RBC (Bld) [#/Vol] 5.19 10*6/uL 4.6-6.2 [facility] Work Phone: Blood hemoglobin measurement (mass/volume)on 09-07-2021 Hemoglobin (Bld) [Mass/Vol] 17.6 g/dL 13.0-16.5 [facility] Work Phone: [phone] Blood lymphocytes/100 leukoc yteson 09-07-2021 Lymphocytes/100 WBC (Bld) 28.4 % 19-41 [facility] Work Phone: Blood monocytes/100 leukocyt eson 09-07-2021 Monocytes/100 WBC (Bld) 7.8 % 0-10 [facility] Work Phone: Blood platelet mean volumeon 09-07-2021 Platelet mean volume (Bld) [Entitic vol] 12.1 fL 6.2-12.0 [facility] Work Phone: Determination of erythrocyte mean corpuscular volume (MCV)on 09-07-2021 MCV (RBC) [Entitic vol] 98.8 fL 80-94 [facility] Work Phone: Hematocrit Auto (Bld) [Volum e fraction]on 09-07-2021 Hematocrit (Bld) [Volume fraction] 51.3 % 40-54 [facility] Work Phone: Laboratory - Chemistry and C hemistry - challengeon 09-07-2021 ALP [Catalytic activity/Vol] 61 U/L 45-117 [facility] Work Phone: ALT [Catalytic activity/Vol] 60 U/L 16-61 [facility] Work Phone: CO2 [Moles/Vol] 30.0 mmol/L 21.0-32.0 [facility] Work Phone: Cobalamin (Vitamin B12) [Mass/Vol] 358 pg/mL 211-911 [facility] Work Phone: Globulin (S) [Mass/Vol] 4.1 g/dL 2.2-4.2 [facility] Work Phone: Urea nitrogen/Creatinine [Mass ratio] 20.7 mg/mg 10-20 [facility] Work Phone: Laboratory - Hematology and Cell countson 09-07-2021 Erythrocyte distribution width (RBC) [Entitic vol] 49.7 fL 35.1-43.9 [facility] Work Phone: Erythrocyte distribution width (RBC) [Ratio] 13.5 % 11.6-14.6 [facility] Work Phone: Immature granulocytes/100 WBC (Bld) 0.200 % 0.0-0.9 [facility] Work Phone: Comment on above: IG% - Immature Granu locytes (promyelocytes, myelocytes and metamyelocytes) > 1% indicates that a LEFT SHIFT is Present. MCH (RBC) [Entitic mass] 33.9 pg 27.0-32.0 [facility] Work Phone: Nucleated RBC/100 WBC (Bld) [Ratio] 0 % 0-5 [facility] Work Phone: MCHC Auto (RBC) [Mass/Vol]on 09-07-2021 MCHC (RBC) [Mass/Vol] 34.3 g/dL 32-36 [facility] Work Phone: No Panel Informationon 09-07 Estimated GFR (MDRD) Amer 102 mL/min >60 [facility] Work Phone: Comment on above: GFR Calc Estimated GFR (MDRD) Non-Af Amer 84 mL/min >60 [facility] Work Phone: Comment on above: Non- GFR Calc Urine Microalbumin/Creatinine Ratio 1490.8 mg/g CRE <30 [facility] Work Phone: Platelets bldon 09-07-2021 Platelets (Bld) [#/Vol] 217 10*3/uL 150-450 [facility] Work Phone: Serum or plasma albumin john urement (mass/volume)on 09-07-2021 Albumin [Mass/Vol] 3.7 g/dL 3.2-5.0 [facility] Work Phone: Serum or plasma albumin/glob ulin mass ratioon 09-07-2021 Albumin/Globulin [Mass ratio] 0.9 {ratio} 0.9-2.4 [facility] Work Phone: Serum or plasma calcium john urement (mass/volume)on 09-07-2021 Calcium [Mass/Vol] 8.9 mg/dL 8.5-10.1 [facility] Work Phone: Serum or plasma creatinine m easurement (mass/volume)on 09-07-2021 Creatinine [Mass/Vol] 0.97 mg/dL 0.70-1.30 [facility] Work Phone: Comment on above: The validity of the calculated GFR & GFRAA in patients over 70 years has not been determined. Clinical correlation is essential. Serum or plasma urea nitroge n measurement (mass/volume)on 09-07-2021 Urea nitrogen [Mass/Vol] 20 mg/dL 7-18 [facility] Work Phone: Serum or plasma uric acid me asurement (mass/volume)on 09-07-2021 Urate [Mass/Vol] 5.6 mg/dL 3.5-7.2 [facility] Work Phone: Comment on above: The drugs N-Acetylcy steine and Metamizole may falsely depress this assay. Thin prep Papanicolaou smear with manual screeningon 09-07-2021 Thin prep Papanicolaou smear with manual screening 49 U/L 15-37 [facility] Work Phone: Thin prep Papanicolaou smear with manual screening 6 5-15 [facility] Work Phone: Thin prep Papanicolaou smear with manual screening 1130.0 mg/L NO RANGE EST. [facility] Work Phone: Urine creatinine measurement (mass/volume)on 09-07-2021 Creatinine (U) [Mass/Vol] 75.80 mg/dL NO RANGE EST. [facility] Work Phone: Whole blood hemoglobin A1c/t otal hemoglobin ratio (mass fraction)on 09-07-2021 HbA1c (Bld) [Mass fraction] 5.7 % 3.8-5.6 [facility] Work Phone: Comment on above: Normal < 5.7 % Predi abetic 5.7 - 6.4 % Diabetic >or= 6.5 % Please note range changes. OCT MACULA CIRRUS OU (BOTH E YES) [facility] Vital Signs Date Time Vital Sign Value Performing Clinician Facility 05-15-2024 11:52-0400 Diastolic blood pressure 89 mm[Hg] Radha Friedt PA-C Work Phone: [email or web address] 05-15-2024 11:52-0400 Systolic blood pressure 154 mm[Hg] Radha Friedt PA-C Work Phone: [email or web address] 05-15-2024 11:42-0400 Body height 180.3 cm Radha Friedt PA-C Work Phone: [email or web address] 05-15-2024 11:42-0400 Body mass index (BMI) [Ratio] 40.03 kg/m2 Radha Friedt PA-C Work Phone: [facility] 05-15-2024 11:42-0400 Body temperature 97.5 [degF] Radha Friedt PA-C Work Phone: [email or web address] 05-15-2024 11:42-0400 Body weight 130.18 kg Radha Friedt PA-C Work Phone: [facility] 05-15-2024 11:42-0400 Heart rate 70 /min Radha Friedt PA-C Work Phone: [facility] 05-15-2024 11:42-0400 SaO2% (BldA) [Mass fraction] 96 % Radha Friedt PA-C Work Phone: [facility] 05-03-2024 16:00-0400 Diastolic blood pressure 91 mm[Hg] Fely Sanchez MD Work Phone: [facility] 05-03-2024 16:00-0400 Heart rate 77 /min Fely Sanchez MD Work Phone: [facility] 05-03-2024 16:00-0400 Respiratory rate 14 /min Fely Sanchez MD Work Phone: [facility] 05-03-2024 16:00-0400 SaO2% (BldA) [Mass fraction] 94 % Fely Sanchez MD Work Phone: [facility] 05-03-2024 16:00-0400 Systolic blood pressure 155 mm[Hg] Fely Sanchez MD Work Phone: [facility] 05-03-2024 15:50-0400 Body temperature 98.01 [degF] Fely Sanchez MD Work Phone: [facility] 03-08-2024 12:09-0500 Body height 180.3 cm Fely Sanchez MD Work Phone: [facility] 03-08-2024 12:09-0500 Body mass index (BMI) [Ratio] 41.42 kg/m2 Fely Sanchez MD Work Phone: [facility] 03-08-2024 12:09-0500 Body temperature 98.4 [degF] Fely Sanchez MD Work Phone: [facility] 03-08-2024 12:09-0500 Body weight 134.72 kg Fely Sanchez MD Work Phone: [facility] 03-08-2024 12:09-0500 Diastolic blood pressure 83 mm[Hg] Fely Sanchez MD Work Phone: [facility] 03-08-2024 12:09-0500 Heart rate 98 /min Fely Sanchez MD Work Phone: [facility] 03-08-2024 12:09-0500 Systolic blood pressure 177 mm[Hg] Fely Sanchez MD Work Phone: [facility] 03-10-2023 12:05-0500 Body temperature 97.9 [degF] Dr. Amy Manley Work Phone: [facility] 03-10-2023 12:05-0500 Diastolic blood pressure 76 mm[Hg] Dr. Amy Manley Work Phone: [facility] 03-10-2023 12:05-0500 Heart rate 59 /min Dr. Amy Manley Work Phone: [facility] 03-10-2023 12:05-0500 Respiratory rate 18 /min Dr. Amy Manley Work Phone: [facility] 03-10-2023 12:05-0500 SaO2% (BldA) [Mass fraction] 95 % Dr. Amy Manley Work Phone: [facility] 03-10-2023 12:05-0500 Systolic blood pressure 135 mm[Hg] Dr. Amy Manley Work Phone: [facility] 03-10-2023 10:39-0500 Body height 180.[address] Amy Manley Work Phone: [facility] 03-10-2023 10:39-0500 Body mass index (BMI) [Ratio] 40.4 kg/m2 Dr. Amy Manley Work Phone: [facility] 03-10-2023 10:39-0500 Body weight 131.[address] Amy Manley Work Phone: [facility] 03-07-2023 07:58-0500 Body temperature 97.9 [degF] Dr. Amy Manley Work Phone: [facility] 03-07-2023 07:58-0500 Diastolic blood pressure 91 mm[Hg] Dr. Amy Manley Work Phone: [facility] 03-07-2023 07:58-0500 Heart rate 66 /min Dr. Amy Manley Work Phone: [facility] 03-07-2023 07:58-0500 Respiratory rate 18 /min Dr. Amy Manley Work Phone: [facility] 03-07-2023 07:58-0500 SaO2% (BldA) [Mass fraction] 96 % Dr. Amy Manley Work Phone: 9(746)789-179509 [place] [address] 03-07-2023 07:58-0500 Systolic blood pressure 153 mm[Hg] Dr. Amy Manley Work Phone: 4(263)934-404148 [address] 03-07-2023 06:41-0500 Body height 180.[address] Amy Manley Work Phone: 4(119)524-017777 [place] [address] 03-07-2023 06:41-0500 Body mass index (BMI) [Ratio] 41.3 kg/m2 Dr. Amy Manley Work Phone: 4(135)101-828877 [place] [address] 03-07-2023 06:41-0500 Body weight 134.[address] Amy Manley Work Phone: 7(451)[phone] [place] [address] 12-19-2022 08:08-0500 Body mass index (BMI) [Ratio] 39.6 kg/m2 Dr. Amy Manley Work Phone: 5(755)608-784509 [place] [address] 12-19-2022 08:08-0500 Body temperature 97.7 [degF] Dr. Amy Manley Work Phone: 8(435)541-289277 [place] [address] 12-19-2022 08:08-0500 Body weight 128.[address] Amy Manley Work Phone: 0(849)248-158077 [place] [address] 12-19-2022 08:08-0500 Diastolic blood pressure 96 mm[Hg] Dr. Amy Manley Work Phone: 0(311)579-765377 [place] [address] 12-19-2022 08:08-0500 Heart rate 65 /min Dr. Amy Manley Work Phone: 8(975)060-682777 [place] [address] 12-19-2022 08:08-0500 Respiratory rate 17 /min Dr. Amy Manley Work Phone: 2(274)493-794477 [place] [address] 12-19-2022 08:08-0500 SaO2% (BldA) [Mass fraction] 96 % Dr. Amy Manley Work Phone: 0(832)766-569209 [place] [address] 11-06-2023 08:08-0500 Systolic blood pressure 165 mm[Hg] Dr. Amy Manley Work Phone: [facility] 01-10-2022 10:15-0500 Diastolic blood pressure 89 mm[Hg] Larry Schwartz MD Work Phone: [facility] 01-10-2022 10:15-0500 Heart rate 69 /min Larry Schwartz MD Work Phone: [facility] 01-10-2022 10:15-0500 Systolic blood pressure 158 mm[Hg] Larry Schwartz MD Work Phone: [facility] 09-15-2021 08:36-0400 Diastolic blood pressure 89 mm[Hg] Larry Schwartz MD Work Phone: [facility] 09-15-2021 08:36-0400 Heart rate 69 /min Larry Schwartz MD Work Phone: [facility] 09-15-2021 08:36-0400 Systolic blood pressure 158 mm[Hg] Larry Schwartz MD Work Phone: [facility] Encounters Encounter Date Encounter Type Care Provider Facility Start: 10-16-2024 End: 10-16-[address] Amy Manley MD Work Phone: -[facility] Start: 10-16-2024 End: 10-16-[address] Amy Manley MD -[facility] Start: 10-16-2024 End: 10-16-2024 ambulatory Amy Manley Facility:[facility] Start: 05-15-2024 End: 05-15-2024 Office outpatient visit 10 minutes Radha Song PA-C Work Phone: [facility] [place] Comment on above: Umbilical hernia wit h obstruction, without gangrene (Primary Dx); Encounter for postoperative care Start: 05-15-2024 End: 05-15-2024 ambulatory RADHA SONG [facility] Start: 05-03-2024 End: 05-03-2024 ambulatory FELY SANCHEZ [facility] Start: 05-03-2024 End: 05-03-2024 Subsequent hospital visit by physician Fely Sanchez MD Work Phone: [facility] Comment on above: Umbilical hernia wit hout obstruction or gangrene (Primary Dx) Start: 05-01-2024 End: 05-01-2024 ambulatory FELY SALAZAR [facility] Start: 05-01-2024 End: 05-01-2024 Encounter for other [facility]procedural examination [facility] Start: 04-23-2024 End: 04-23-2024 Admission to same day surgery center Radha Song PA-C Work Phone: [facility] [place] Start: 04-23-2024 End: 04-23-2024 ambulatory Radha Song PA-C Work Phone: [facility] [place] Start: 04-03-2024 End: 04-03-2024 ambulatory AMY MANLEY [facility] Start: 03-26-2024 End: 03-26-2024 ambulatory Amy Manley Facility:[facility] Start: 03-15-2024 End: 03-15-2024 ambulatory [facility] Facility:[facility] Start: 03-11-2024 End: 03-11-2024 Telephone encounter Radha Song PA-C Work Phone: [facility] [place] Start: 03-08-2024 End: 03-08-2024 Office outpatient new 45 minutes Fely Sanchez MD Work Phone: [facility] [place] Comment on above: Umbilical hernia wit h obstruction, without gangrene (Primary Dx); BMI 40.0-44.9, adult (HCC); Umbilical pain; Type 2 diabetes mellitus with other specified complication, unspecified whether tank terminal gauger insulin use (HCC); Morbid obesity with BMI of 40.0-44.9, adult (HCC); Primary hypertension Start: 03-08-2024 End: 03-08-2024 ambulatory FELY SALAZAR [facility] Start: 01-04-2024 End: 01-04-2024 ambulatory Amy Manley Facility:[facility] Start: 06-15-2023 End: 06-15-[address] Amy Manley Work Phone: [facility] Work Phone: Start: 06-15-2023 End: 06-15-[address] Amy Manley Work Phone: [facility] Start: 03-10-2023 Non-patient / Non-visit Dr. Marcelo Manley Work Phone: [place] [facility] Start: 03-10-2023 End: 03-10-2023 Admission to same day surgery center Dr. Amy Manley Work Phone: [facility] Work Phone: Start: 03-10-2023 End: 03-10-[address] Amy Manley Work Phone: [facility] Work Phone: Start: 03-07-2023 Non-patient / Non-visit Dr. Marcelo Manley Work Phone: [facility] Start: 03-07-2023 End: 03-07-2023 Admission to same day surgery center Dr. Amy Manley Work Phone: [facility] Work Phone: Start: 03-07-2023 End: 03-07-[address] Amy Manley Work Phone: [facility] Work Phone: Start: 12-19-2022 End: 12-19-[address] Amy Manley Work Phone: [facility] Work Phone: Start: 12-01-2022 End: 12-01-2022 ambulatory [facility] Work Phone: Start: 12-01-2022 End: 12-01-2022 Patient encounter procedure [facility] Start: 05-31-2022 End: 05-31-2022 ambulatory [facility] Work Phone: Start: 05-31-2022 End: 05-31-2022 Patient encounter procedure [facility] Start: 01-10-2022 End: 01-10-2022 ambulatory LARRY SCHWARTZ Facility:[facility] Start: 01-10-2022 End: 01-10-2022 Patient encounter procedure Larry Schwartz MD Work Phone: Ophthalmology Comment on above: Benign lesion of eye lid/cystic lesion (Primary Dx); Essential hypertension; Gout, unspecified cause, unspecified chronicity, unspecified site Start: 01-03-2022 Orders Only Larry go MD Work Phone: [facility] Comment on above: Benign lesion of eye lid (Primary Dx) Start: 10-29-2021 End: 10-29-2021 ambulatory [facility] Work Phone: Start: 10-29-2021 End: 10-29-2021 Patient encounter procedure [facility] Start: 09-15-2021 End: 09-15-2021 ambulatory AMY MANLEY Facility:[facility] Start: 09-15-2021 End: 09-15-2021 Patient encounter procedure Larry Schwartz MD Work Phone: Ophthalmology Comment on above: Benign lesion of eye lid/cystic lesion (Primary Dx); Diet-controlled diabetes mellitus (HCC); Unspecified sleep apnea; Hypertension, essential; Hyperlipidemia, unspecified hyperlipidemia type; Benign lesion of eyelid Start: 09-07-2021 End: 09-07-2021 Patient encounter procedure [facility] Procedures Date Procedure Procedure Detail Performing Clinician Start: 05-03-2024 Glucose quantitative blood xcpt reagent strip Fely Sanchez MD Work Phone: Start: 05-03-2024 End: 05-03-2024 NV RPR AA HERNIA 1ST 3-10 CM REDUCIBLE Fely Sanchez MD Work Phone: Start: 05-03-2024 Glucose quantitative blood xcpt reagent strip Fely Sanchez MD Work Phone: Start: 03-10-[address] Amy Manley Work Phone: Start: 03-07-[address] Amy brown Work Phone: Start: 09-15-2021 Computerized ophthal stefanie imaging retina Larry Schwartz MD Work Phone: Start: 08-14-2017 Adult depression scr eening assessment Larry Schwartz MD Work Phone: Start: 08-14-2015 Colonoscopy Larry marroquin MD Work Phone: Plan of Treatment Date Care Activity Detail Author Start: 08-01-2026 DTaP/Tdap/Td Vaccine s (2 - Td or Tdap) DTaP/Tdap/Td Vaccines (2 - Td or Tdap) [facility] Start: 08-01-2026 Urine microalbumin profile DTAP,TDAP,TD (2 - Td or Tdap) [facility] Start: 05-01-2025 Diabetes: Estimated Glomerular Filtration Rate for Kidney Health Diabetes: Estimated Glomerular Filtration Rate for Kidney Health [facility] Start: 05-01-2025 Hemoglobin A1c measurement Diabetes: Hemoglobin A1C [facility] Start: 10-14-2024 Influenza vaccination Influenz a Vaccine (Season Ended) [facility] Start: 05-15-2024 End: 05-15-2024 Patient encounter procedure 05/15/2024 11:45 AM EDT Office Visit [facility] [place] [address] [place] [address] [facility] [place] Start: 05-15-2024 End: 05-15-2024 Patient encounter procedure 05/15/2024 10:15 AM EDT Office Visit [facility] [place] [address] [place] [address] [facility] [place] Start: 05-03-2024 End: 05-03-2024 Admission to same day surgery center [facility] Comment on above: LAPAROSCOPIC UMBILIC AL HERNIA REPAIR WITH MESH [19708 (CPT )] Start: 05-03-2024 End: 05-03-2024 LAPAROSCOPIC, REPAIR, HERNIA, UMBILICAL [facility] Start: 05-03-2024 Subsequent hospital visit by physician [facility] Start: 05-01-2024 End: 05-01-2024 Admission to establishment 05/01/2024 3:00 PM EDT Pre-Admission Testing [facility] Pre-Admit Testing [address] [place] [address] [facility] Start: 10-15-2023 COVID-19 Vaccine ( season) COVID-19 Vaccine () [facility] Start: 10-15-2023 Influenza vaccination Influenza Vacc ine (#1) [facility] Start: 03-10-2023 Sigmoidoscopy flx control bleeding SIGMOIDOSCOPY FOR BLEEDING [facility] Start: 03-10-2023 Patient discharge [facility] Start: 03-07-2023 Colsc flx w/rmvl of tumor polyp lesion snare tq COLONOSCOPY W/LESION REMOVAL [facility] Start: 03-07-2023 Patient discharge [facility] Start: 09-15-2022 Hepatitis C antibody , confirmatory test DILATED RETINAL EXAM [facility] Start: 10-14-2021 Influenza vaccination INFLUENZA (#1) [facility] Start: 08-01-2021 PROSTATE CANCER SCREENING DISCUSSION PROSTATE CANCER SCREENING DISCUSSION [facility] Start: 2021 RSV Immunization for Adults (1 - Risk 60-74 years 1-dose series) RSV Immunization for Adults (1 - Risk 60-74 years 1-dose series) [facility] Start: 02-13-2021 DEPRESSION ASSESSMENT DEPRESSION ASS ESSMENT [facility] Start: 08-13-2020 Colonoscopy COLONOSCOPY [facility] Start: 08-13-2020 COLORECTAL CANCER SCREENING COLORECTAL CANCER SCREENING [facility] Start: 08-06-2020 ANNUAL PCP TEAM HEEL SEAT SANDER KRISTINA DISEASE VISIT ANNUAL PCP TEAM CHRONIC DISEASE VISIT [facility] Start: 11-20-2019 Hepatitis B surface antibody level LDL CHOLESTEROL [facility] Start: 05-21-2019 Hemoglobin A1c/Hemoglobin.total in Blood HBA1C [facility] Start: 01-12-2019 BP CONTROLLED (<130/80) BP CONTROLLE D (<130/80) [facility] Start: 08-14-2018 Adult depression screening assessment DEPRESSION SCREENING [facility] Start: 07-25-2014 FECAL OCCULT BLOOD FECAL OCCULT BLOO D [facility] Start: 06-23-2011 SHINGRIX VACCINE (1 of 2) SHINGRIX VACCINE (1 of 2) [facility] Start: 2006 COLOGUARD (FIT-DNA) COLOGUARD (FIT-D NA) [facility] Start: [address] COLONOGRAPHY [facility] Start: 2006 SIGMOIDOSCOPY SIGMOIDOSCOPY [facility] Start: 1980 Pneumococcal Vaccine : 50+ Years (1 of 2 - PCV) Pneumococcal Vaccine: 50+ Years (1 of 2 - PCV) [facility] Start: 06-23-1979 Diabetes: Estimated Glomerular Filtration Rate for Kidney Health Diabetes: Estimated Glomerular Filtration Rate for Kidney Health [facility] Start: 06-23-1979 Diabetes: Urine Albumin-Creatinine Ratio for Kidney Health Diabetes: Urine Albumin-Creatinine Ratio for Kidney Health [facility] Start: 06-23-1979 Hepatitis C screening Hepatitis C Sc reening [facility] Start: 06-23-1979 HIV SCREENING HIV SCREENING [facility] Start: 1973 Depression Screening Depression Scre ening [facility] Start: 06-23-1971 3 comp foot exam completed DIABETIC FOOT EXAM [facility] Start: 06-23-1971 Diabetic foot examination Diabetes: Foot Exam [facility] Start: 06-23-1971 Glaucoma screening Diabetes: R etinopathy Screening [facility] Start: 06-23-1971 Hepatitis B screening URINE ALBUMIN:CREATININE RATIO [facility] Start: 06-23-1971 Preventive dental service Diabetes: Dental Exam [facility] Start: 06-23-1967 PNEUMOCOCCAL (1 - PCV) PNEUMOCOCCAL (1 - PCV) [facility] Start: 1962 MMR Vaccines (1 of 1 - Standard series) MMR Vaccines (1 of 1 - Standard series) [facility] Start: 1961 COVID-19 VACCINE (#1) COVID-19 VACCI NE (#1) [facility] Start: 1961 Hemoglobin A1c measurement Diabetes: Hemoglobin A1C [facility] Start: 1961 HIV screening HIV Screening [facility] Start: 1961 Lipid panel Lipid Panel [facility] Start: 1960 Screening for malign ant neoplasm of colon [facility] Colonoscopy [facility] Patient referral [facility] Work Phone: [facility] Immunizations Immunization Date Immunization Notes Care Provider Romina pierce 08-01-2016 tetanus toxoid, redu laina diphtheria toxoid, and acellular pertussis vaccine, adsorbed Larry Schwartz MD Work Phone: [facility] 08-24-2006 tetanus and diphther ia toxoids, not adsorbed, for adult use Larry Schwartz MD Work Phone: [facility] Work Phone: Payers Date Payer Category Payer Self-pay [id number] 2023 Michael Sofia [facility] ASHLEY GUTIÉRREZ [id number] 2023 Unknown [id number] 2009 Unknown [id number] 2009 Unknown ASHLEY ELDER PPO [id number] 2009-Present [phone] [place] [address] [id number] 2009 Unknown ASHLEY ELDER PPO [id number] 2009-Present [phone] [address] [place] [address] PPO [id number] Unknown [id number] Unknown [id number] Unknown [id number] Unknown [id number] Unknown [id number] Social History Date Type Detail Facility [facility] Work Phone: Start: 1960 Sex Assigned At Male [facility] Start: 03-09-2023 End: 05-01-2024 Tobacco smoking status NHIS Ex-smoker [facility] Work Phone: Start: 02-13-1973 End: 08-02-2006 History of tobacco use Current smoker [facility] Work Phone: End: 08-02-2006 History of tobacco use Cigar Smoker [facility] Work Phone: Start: 09-15-2021 End: 05-15-2024 Alcohol intake Current drinker of alcohol (finding) [facility] Start: 1960 Sex Assigned At Not on file [facility] Start: 12-31-2021 End: 01-10-2022 Exposure to SARS-CoV-2 (event) Not sure [facility] Start: 03-02-2023 End: 03-09-2023 Tobacco smoking status NHIS Unknown if ever smoked [facility] Start: 01-08-2024 [facility] tobacco [facility] Start: 01-08-2024 End: 05-01-2024 Tobacco use and exposure Smokeless tobacco non-user [facility] Start: 03-08-2024 End: 05-15-2024 Alcoholic beverage intake [facility] Start: 03-08-2024 End: 05-15-2024 Tobacco use panel [facility] Start: 03-08-2024 Alcohol Comment 12 pack per week [facility] Start: 01-08-2024 Sex Male (finding) [facility] Start: 03-07-2024 Gender identity Identifies as male gender (finding) [facility] Start: 03-07-2024 Sexual orientation Heterosexual (fin ding) [facility] Start: 02-13-1973 End: 02-13-1994 History of tobacco use Cigarette Smoker [facility] Medical Equipment Procedure Code Equipment Code Equipment Origin al Text Equipment Identifier Dates Sigmoidoscopy, flexible RESOLUTION 360 CLIP 235 CM FDA Start: 03-10-2023 Sigmoidoscopy, flexible RESOLUTION 360 CLIP 235 CM FDA Start: 03-10-2023 Sigmoidoscopy, flexible RESOLUTION 360 CLIP 235 CM FDA Start: 03-10-2023 Sigmoidoscopy, flexible RESOLUTION 360 CLIP 235 CM FDA Start: 03-10-2023 Sigmoidoscopy, flexible RESOLUTION 360 CLIP 235 CM FDA Start: 03-10-2023 Sigmoidoscopy, flexible RESOLUTION 360 CLIP 235 CM FDA Start: 03-10-2023 Sigmoidoscopy, flexible RESOLUTION 360 CLIP 235 CM FDA Start: 03-10-2023 Sigmoidoscopy, flexible RESOLUTION 360 CLIP 235 CM FDA Start: 03-10-2023 Sigmoidoscopy, flexible RESOLUTION 360 CLIP 235 CM FDA Start: 03-10-2023 Sigmoidoscopy, flexible RESOLUTION 360 CLIP 235 CM FDA Start: 03-10-2023 Mesh Symbotex 15 cm d - Sna - [id number] Start: 05-03-2024 Goals Date Patient Goal Desired Activity /State Mental Status Date Assessment Result Facility 03-10-2023 Cognitive function Level Of Cons ciousness Awake;Appropriate;Follows Commands [facility] Work Phone: 03-10-2023 Cognitive function Voice/Name [facility] Work Phone: 03-07-2023 Cognitive function Awake [facility] Work Phone: 03-07-2023 Cognitive function Arousable To Voice/Nam e [facility] Work Phone: Clinical Notes 09-15-2021 to 05-15-2024 Radha Song PA-C - 05/15/2024 11:45 AM EDTTelvia Garcia - 05/15/2024 11:45 AM EDTOp Note - Fely Sanchez MD - 05/03/2024 1:35 PM EDTOp Note - Fely Sanchez MD - 05/03/2024 1:35 PM EDT Note Date & Type Note Facility 05-15-2024 History of Present illness Narrative [facility] - Surgery Patient Name: Cathy Aguirre Date: 05/15/24 S: Cathy Aguirre follows up for a post operative visit after undergoing a laparoscopic umbilical hernia repair with mesh (15 cm) with Dr Sanchez on 05/03/24. He is doing well without any major postoperative complications. His pain control is well controlled and he is not asking for narcotic refills. His bowel function has returned to normal without constipation or diarrhea. His appetite is returning to normal and he does not report any dysphagia, nausea or vomiting. Still sore but improving. Pleased with outcome. Allergies Allergen Reactions Bee Venom Other Reaction(s): Anaphylaxis Hazelnut Metformin Sick to stomach Current Outpatient Medications Medication Sig Dispense Refill allopurinol (Zyloprim) 300 MG tablet Take 300 mg by mouth daily. aspirin 81 MG EC tablet Take 81 mg by mouth 2 times daily. carvedilol (Coreg) 25 MG tablet Take 25 mg by mouth 2 times daily. Chromium Picolinate 400 MCG tablet Take by mouth 2 times daily. dapagliflozin (Farxiga) 10 MG tablet Take 10 mg by mouth daily. fluticasone (Flonase) 50 MCG/ACT nasal spray Administer 1 spray into affected nostril(s). spironolactone-hydroCHLOROthiazid e (Aldactazide) 25-25 MG tablet Take 1 tablet by mouth daily. calcium carbonate-cholecalciferol (Oyster Shell) 250-3.125 MG-MCG tablet Take 1 tablet by mouth 2 times daily. (Patient not taking: Reported on 05/15/2024) Calcium Citrate-Vitamin D 315-5 MG-MCG tablet Take by mouth. (Patient not taking: Reported on 05/15/2024) citric acid-potassium citrate (Polycitra) 1100-334 MG/5ML solution Take by mouth 3 times daily (with meals). (Patient not taking: Reported on 05/15/2024) Flaxseed, Linseed, (Flax Seed Oil) 1000 MG capsule Take 1,000 mg by mouth. (Patient not taking: Reported on 05/15/2024) omega-3 acid ethyl esters (Lovaza) 1 g capsule Take 1 g by mouth 2 times daily. (Patient not taking: Reported on 05/15/2024) ondansetron (Zofran) 4 MG tablet Take 1 tablet (4 mg) by mouth every 8 hours as needed for vomiting for up to 7 days. (Patient not taking: Reported on 05/15/2024) 20 tablet 0 polyethylene glycol, PEG, 3350 (Glycolax) 17 GM/SCOOP powder Take 17 g by mouth daily. (Patient not taking: Reported on 05/15/2024) 510 g 0 potassium citrate CR (Urocit-K-10) 10 mEq ER tablet Take by mouth with evening meal. (Patient not taking: Reported on 05/15/2024) ramipril (Altace) 10 MG capsule (Patient not taking: Reported on 05/15/2024) tadalafil (Adcirca) 20 MG tablet as needed. (Patient not taking: Reported on 05/15/2024) Tirzepatide (MOUNJARO SC) Inject under the skin. sundays (Patient not taking: Reported on 05/15/2024) VITAMIN E PO Take by mouth every evening. (Patient not taking: Reported on 05/15/2024) No current facility-administered medications for this visit. Past Medical History: Diagnosis Date Adverse effect of metformin CKD (chronic kidney disease) Colon polyps Diabetes (HCC) Elevated prostate specific antigen (PSA) Erectile dysfunction Gout Hypertension Obesity Osteoarthritis Patellar bursitis of right knee Quadriceps tendonitis Sleep apnea mini CPAP Umbilical hernia O: BP (!) 154/89 (BP Location: Right arm, Patient Position: Sitting, BP Cuff Size: Adult) Pulse 70 Temp 36.4 C (97.5 F) (Temporal) Ht 5' 11 (1.803 m) Wt 287 lb (130 kg) SpO2 96% BMI 40.03 kg/m Physical Exam: The wounds are healing well. There is no evidence of infection, seroma, erythema or hernia. Scabbing in navel but no surrounding erythema or induration. Assessment/Plan Cathy was seen today for post-op. Diagnoses and all orders for this visit: Umbilical hernia with obstruction, without gangrene (Primary) Encounter for postoperative care He may advance diet as tolerated. He may increase their activity to a normal level yet refrain from lifting greater than 15# for one month after surgery. Follow-up prn. The patient was seen and examined independently and relevant data reviewed by myself. A full chart review was performed. Patient Care Team: Amy Manley as PCP - General (Family Medicine) We want to inform you that your patient's blood pressure was noted to be elevated in our office today. We thank you for trusting us with your patient's health. Last BP: BP Readings from Last 3 Encounters: 05/15/24 (!) 154/89 05/03/24 (!) 155/91 05/01/24 (!) 154/91 documented in this encounter [facility] 05-03-2024 Note Patient: Cathy choi Procedure Summary Date: 05/03/24 Room / Location: [facility] Operating Room Anesthesia Start: 1336 Anesthesia Stop: 1550 Procedure: LAPAROSCOPIC UMBILICAL HERNIA REPAIR WITH MESH Diagnosis: Umbilical hernia with obstruction, without gangrene Surgeons: Fely Sanchez MD Responsible Provider: Michael Harman APRN - SABIHA Anesthesia Type: general, regional ASA Status: 3 Anesthesia Type: general, regional Vitals Value Taken Time BP 160/100 05/03/24 1550 Temp 36.7 ?C (98 ?F) 05/03/24 1550 Pulse 70 05/03/24 1550 Resp 16 05/03/24 1550 SpO2 100 % 05/03/24 1550 Anesthesia Post Evaluation Patient location during evaluation: PACU Patient participation: complete - patient participated Level of consciousness: awake and alert Pain management: satisfactory to patient Airway patency: patent Dental Injury: no Cardiovascular status: acceptable, blood pressure returned to baseline and hemodynamically stable Respiratory status: acceptable and spontaneous ventilation Hydration status: euvolemic Nausea/Vomiting: controlled No notable events documented. Patient can be discharged once all PACU criteria has been met. [facility] 05-03-2024 Note Patient: Cathy choi Procedure Summary Date: 05/03/24 Room / Location: [facility] Operating Room Anesthesia Start: 1336 Anesthesia Stop: 1550 Procedure: LAPAROSCOPIC UMBILICAL HERNIA REPAIR WITH MESH Diagnosis: Umbilical hernia with obstruction, without gangrene Surgeons: Fely Sanchez MD Responsible Provider: HERBERTH Warren CRNA Anesthesia Type: general, regional ASA Status: 3 Anesthesia Type: general, regional Vitals Value Taken Time BP 160/100 05/03/24 1550 Temp 36.7 ?C (98 ?F) 05/03/24 1550 Pulse 70 05/03/24 1550 Resp 16 05/03/24 1550 SpO2 100 % 05/03/24 1550 Anesthesia Post Evaluation Patient location during evaluation: PACU Patient participation: complete - patient participated Level of consciousness: awake and alert Pain management: satisfactory to patient Multimodal analgesia pain management approach Airway patency: patent Two or more strategies used to mitigate risk of obstructive sleep apnea Cardiovascular status: acceptable and hemodynamically stable Respiratory status: acceptable Hydration status: acceptable No notable events documented. [facility] #430 PONV Patient received an inhalational anesthetic (4554F) Patient exhibits three or more risk factors for PONV (4556F) Patient received at aset 2 prophylactic Rx PONV anti-emtic agents of different classes preop and/or intraop (G9775) MIPS # 424 Perioperative Temperature Management Anesthesia time was 60 minutes or longer (4255F) Anesthesai administered was General (inhalational or TIVA) or Neuraxial block (X0424) At least one body temperature greater than 95.8F/35.5C achieved within the 30 mins immediately prior to or the 15 minutes immediately following anesthesia end time (G9771) MIPS #477 Multimodal Pain Management Not emergent case Patient was administered multimodal pain management (two or more drugs and/or interventions excluding systemic opioids) in the periopeartive period occurring at some time between 6 hours prior to anesthesia start time until discharged from PACU (G2148) [facility] #404 Anesthesiology Smoking Abstinence The patient is not a current smoker (e.g. cigarette, cigar, pipe, e-cigarette/vaping/marijuana) If no stop here (XX404) I completed my handoff to the receiving clinician during which we: 1. Identified the patient 2. Identified the responsible provider 3. Reviewed the pertinent medical history 4. Discussed the surgical course 5. Reviewed intra-op anesthesia management and issues during anesthesia 6. Set expectations for post-procedure period 7. Allowed opportunity for questions and acknowledgement of understanding. [facility] 05-03-2024 Note Airway Date/Time: 05/03/2024 1:48 PM Urgency: scheduled Airway not difficult General Information and Staff Patient location during procedure: Procedural Resident/GAS SCRUBBER OPERATOR: Amy Simon APRN - GAS SCRUBBER OPERATOR Performed: GAS SCRUBBER OPERATOR Indications and Patient Condition Indications for airway management: anesthesia Sedation level: Asleep and Modify RSI Preoxygenated: yes Patient position: reverse Trendelenburg Mask difficulty assessment: 2 - vent by mask + OA or adjuvant +/- NMBA Final Airway Details Final airway type: endotracheal airway Successful airway: ETT Cuffed: yes Successful intubation technique: video laryngoscopy Endotracheal tube insertion site: oral Blade: [place] scope Blade size: #3 ETT size (mm): 8.0 Cormack-Lehane Classification: grade I - full view of glottis Placement verified by: capnometry Measured from: lips ETT to lips (cm): 24 Number of attempts at approach: 1 [facility] 05-03-2024 Procedure note Images from the original note were not included. [facility] - [facility] Surgery Patient Name: Cathy Aguirre OPERATIVE NOTE DATE OF PROCEDURE: 05/03/2024 SURGEON: Fely Sanchez MD OPENER: Kaylin Osman MD PREOPERATIVE DIAGNOSIS: Incarcerated umbilical hernia Umbilical pain Morbid obesity, BMI 40 kg/m POSTOPERATIVE DIAGNOSIS: Same, incarcerated umbilical hernia with omentum, 3 cm fascial defect OPERATION: LAPAROSCOPIC REPAIR INCARCERATED UMBILICAL HERNIA WITH MESH ANESTHESIA: General anesthesia ESTIMATED BLOOD LOSS: Minimal. COMPLICATIONS: None. SPECIMENS: N/A. PREOPERATIVE MEDICATIONS: Ancef HISTORY: The patient is a 63 y.o. year old male with history of above preop diagnosis. I explained the risk, benefits, expected outcome, and alternatives to the procedure. Patient understands and is in agreement to proceed with operation. PROCEDURE: The patient was brought to the operating room and placed in supine position. Both arms were tucked at his side, with care taken to pad the bony prominences. After initiation of general anesthesia by the Anesthesia Department, the abdomen was prepped and draped normal sterile fashion. A Veress needle was placed in the left upper quadrant and insufflated without difficulty. We placed three 5 mm trocars in the left mid-axillary line. Upon entering the abdomen, the hernia at the navel was identified. There was incarcerated omentum. This was unable to be reduced. Bovie electrocautery was used to divide the attachments to the hernia sac. Ultimately an Enseal device was used to amputate the omentum leaving this in the hernia sac. Hemostasis was obtained using the Enseal device and the omentum was from the anterior abdominal wall. We then divided the falciform ligament using Bovie electrocautery. Hemostasis was obtained using an 0 Vicryl Endoloop. Bovie electrocautery was used to divide the redundant fatty tissue along the anterior abdominal wall and this from the posterior sheath and peritoneum. Ultimately we continued our dissection towards the incarcerated hernia sac at the navel and then continued caudally. The allowing us to enter the preperitoneal plane. peritoneum caudal to the umbilical defect was incised with the this from the anterior abdominal wall and completed our dissection all the tissue from the anterior abdominal wall. We freed up the fascial edges, which measured approximately 3 cm. In order to allow for 5 cm overlap in all directions, a 15 cm piece of Symbotex mesh was selected. An infraumbilical curvilinear incision was made using an 11 blade scalpel. The umbilical stalk was elevated using curved scissors, and the fascial defect identified. A 12-mm trocar was placed in a periumbilical fashion and the mesh was introduced into the abdomen. We then removed the preperitoneal fat and falciform ligament and hernia sac which were placed in a wound protection device. This was removed from the abdomen. The pressure was dropped to 12-cm of H2O and the fascia closed with multiple sutures of 1-PDS using the Baron-Placido closure device. The umbilical stalk was secured using 3-0 Vicryl to the anterior abdominal wall to reconstruct the umbilical fold. The mesh was elevated to the anterior abdominal wall and tacked into position using a 5-mm Pro tack device. The mesh was secured to the anterior abdominal wall without difficultly and with excellent overlap. In order to facilitate contralateral fixation, two additional 5 mm trocars were placed in the right midaxillary line. Once we have completed primary fascial closure and mesh reinforcement of the anterior abdominal wall the procedure was completed. The trocars were removed under direct visualization. The skin was closed using 4-0 Monocryl. He tolerated the procedure well, was extubated, and sent to the recovery room in stable condition. T [facility] 05-03-2024 Miscellaneous Notes Images from the original note were not included. [facility] Surgery Patient Name: Cathy Aguirre OPERATIVE NOTE DATE OF PROCEDURE: 05/03/2024 SURGEON: Fely Sanchez MD OPENER: Kaylin Osman MD PREOPERATIVE DIAGNOSIS: Incarcerated umbilical hernia Umbilical pain Morbid obesity, BMI 40 kg/m POSTOPERATIVE DIAGNOSIS: Same, incarcerated umbilical hernia with omentum, 3 cm fascial defect OPERATION: LAPAROSCOPIC REPAIR INCARCERATED UMBILICAL HERNIA WITH MESH ANESTHESIA: General anesthesia ESTIMATED BLOOD LOSS: Minimal. COMPLICATIONS: None. SPECIMENS: N/A. PREOPERATIVE MEDICATIONS: Ancef HISTORY: The patient is a 63 y.o. year old male with history of above preop diagnosis. I explained the risk, benefits, expected outcome, and alternatives to the procedure. Patient understands and is in agreement to proceed with operation. PROCEDURE: The patient was brought to the operating room and placed in supine position. Both arms were tucked at his side, with care taken to pad the bony prominences. After initiation of general anesthesia by the Anesthesia Department, the abdomen was prepped and draped normal sterile fashion. A Veress needle was placed in the left upper quadrant and insufflated without difficulty. We placed three 5 mm trocars in the left mid-axillary line. Upon entering the abdomen, the hernia at the navel was identified. There was incarcerated omentum. This was unable to be reduced. Bovie electrocautery was used to divide the attachments to the hernia sac. Ultimately an Enseal device was used to amputate the omentum leaving this in the hernia sac. Hemostasis was obtained using the Enseal device and the omentum was from the anterior abdominal wall. We then divided the falciform ligament using Bovie electrocautery. Hemostasis was obtained using an 0 Vicryl Endoloop. Bovie electrocautery was used to divide the redundant fatty tissue along the anterior abdominal wall and this from the posterior sheath and peritoneum. Ultimately we continued our dissection towards the incarcerated hernia sac at the navel and then continued caudally. The allowing us to enter the preperitoneal plane. peritoneum caudal to the umbilical defect was incised with the this from the anterior abdominal wall and completed our dissection all the tissue from the anterior abdominal wall. We freed up the fascial edges, which measured approximately 3 cm. In order to allow for 5 cm overlap in all directions, a 15 cm piece of Symbotex mesh was selected. An infraumbilical curvilinear incision was made using an 11 blade scalpel. The umbilical stalk was elevated using curved scissors, and the fascial defect identified. A 12-mm trocar was placed in a periumbilical fashion and the mesh was introduced into the abdomen. We then removed the preperitoneal fat and falciform ligament and hernia sac which were placed in a wound protection device. This was removed from the abdomen. The pressure was dropped to 12-cm of H2O and the fascia closed with multiple sutures of 1-PDS using the Baron-Placido closure device. The umbilical stalk was secured using 3-0 Vicryl to the anterior abdominal wall to reconstruct the umbilical fold. The mesh was elevated to the anterior abdominal wall and tacked into position using a 5-mm Pro tack device. The mesh was secured to the anterior abdominal wall without difficultly and with excellent overlap. In order to facilitate contralateral fixation, two additional 5 mm trocars were placed in the right midaxillary line. Once we have completed primary fascial closure and mesh reinforcement of the anterior abdominal wall the procedure was completed. The trocars were removed under direct visualization. The skin was closed using 4-0 Monocryl. He tolerated the procedure well, was extubated, and sent to the recovery room in stable condition. documented in this encounter [facility] 05-03-2024 Attending History and physical note H&P reviewed. The patient was examined and there are no changes to the H&P. Source Note - Marisabel Guillen APRN - EMAIL DEVELOPER - 05/01/2024 3:00 PM EDT Images from the original note were not included. Comprehensive Pre Surgical History and Physical ? Name: Cathy Aguirre : 1960 (Age-63 y.o.) Date of Service: Pt seen/examined on 05/01/2024 Procedure Information Date/Time: 05/03/24 1230 Procedure: LAPAROSCOPIC UMBILICAL HERNIA REPAIR WITH MESH - 90 mins Location: [facility] Operating Room Surgeons: Fely Sanchez MD Chief Complaint: Umbilical hernia with obstruction, without gangrene [K42.0] ASSESSMENT/PLAN: Patient is considered low risk for this intermediate level 2 risk procedure/surgery () with no reducible risk factors. Based on the above evaluation, the benefits of the planned procedure likely exceed the risks. The patient is medically optimized to proceed with the planned procedure without any further cardiopulmonary testing. 1) Umbilical hernia with obstruction, without gangrene [K42.0] - Managed per surgery - Orders per PAT Protocol: A1C, BMP, CBC, EKG - METS >4, No further evaluation is required 2) DAVID - Compliant with CPAP - Advised to bring PAP machine DOS - Consider higher level of care (continuous pulse ox) with this patient due to DAVID and increased risks. 3) HTN BP Readings from Last 3 Encounters: 05/01/24 (!) 154/91 03/08/24 (!) 177/83 - Follows PCP for management - MEDS: carvedilol, ramipril, Aldactazide, potassium citrate - Patient compliant with medication(s) - EKG and labs per PAT protocol 4) DM- Type II No results found for: HGBA1C - Follows PCP for management - MEDS: Liam Steelero - Blood glucose goal is <250 DOS - Per PAT protocol; A1c > 9 requires a referral back to PCP/[employer] for further optimization prior to surgery. 5) Morbid Obesity - BMI > 40 6) Former Smoker - quit 30 yrs ago - 16 pack year history 7) ETOH - admits to 12 drinks/week 8) Allergic Rhinitis - MEDS: Flonase 9 ) ASA 81mg - pt reports he takes this BID for prevention - advised to hold x3 days pre-op by Dr. Unger per pt report - reports he stopped his ASA on 04/29 10) Gout - MEDS: allopurinol 11) ED - MEDS: tadalafil prn Visit Type: Pre-Admission Testing Visit Labs Ordered: YES - PER PAT PROTOCOL Sleep Referral Ordered: NO - ALREADY DIAGNOSED WITH DAVID AND COMPLIANT WITH CPAP Total time spent (which include face to face and non face to face encounters) : 30 minutes Toxic drug monitoring/narrow therapeutic index drug monitoring : # Drug name : multiple # Route administered : po # Method of monitoring : labs, EKG PAT Protocol referenced includes: 1. Anesthesia Lab Protocol Orders 2. Perioperative Cardiovascular Risk Assessment 3. Anesthesia Assessment 4. Pain Assessment and Acute Pain Service Consult (if appropriate) 5. Medical Clearance/Consult from Internal Medicine (IMS) 6. Shower/Wash Order (for designated surgeries) 7. DAVID Screen and Sleep Clinic Referral (if appropriate) History Of Present Illness: 63 y.o. male who we are asked to see/evaluate by Dr. Sanchez for pre-operative evaluation prior to ? Case: [id number] Date/Time: 05/03/24 1230 Procedure: LAPAROSCOPIC UMBILICAL HERNIA REPAIR WITH MESH [75278 CPT(R)] - 90 mins Anesthesia type: General Diagnosis: Umbilical hernia with obstruction, without gangrene [K42.0] Location: [facility] OR Operating Room Surgeons: Fely Sanchez MD From last office visit with Dr. Sanchez on 03/08/24: Cathy Aguirre is a 63 y.o. male who presents with umbilical hernia. Has been present for 8 years. Has gradually increased in size and becoming more bothersome. He has noticed skin color changes and purpleish color. He states that because of the increasing symptoms he wishes to proceed with intervention. Denies n/v or change in bowel habits. 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 No previous abdominal surgeries. H/o CKD, Gout, HTN, DAVID, DM (is on ). He does not smoke. 12 pack beer per week. Pt has no new complaints at this time. No recent illnesses. Pt denies CP, BRADFORD, edema, orthopnea, PND, dizziness, syncope, near-syncope. Pt denies CAD, OK, stents, CHF, asthma, COPD, TIA/CVA, DVT/PE, seizures. Past Medical History: Past Medical History: No date: Adverse effect of metformin No date: CKD (chronic kidney disease) No date: Colon polyps No date: Diabetes (HCC) No date: Elevated prostate specific antigen (PSA) No date: Erectile dysfunction No date: Gout No date: Hypertension No date: Obesity No date: Osteoarthritis No date: Patellar bursitis of right knee No date: Quadriceps tendonitis No date: Sleep apnea Comment: mini CPAP No date: Umbilical hernia Past Surgical History: Past Surgical History: 2022: COLONOSCOPY No date: LIPOMA EXCISION (HISTORICAL) Comment: Dr Rivera No date: SHOULDER ARTHROSCOPY; Right No date: VASECTOMY Medications Prior to Admission: Current Outpatient Medications on File Prior to Visit Medication Sig Dispense Refill allopurinol (Zyloprim) 300 MG tablet Take 300 mg by mouth daily. aspirin 81 MG EC tablet Take 81 mg by mouth 2 times daily. calcium carbonate-cholecalciferol (Oyster Shell) 250-3.125 MG-MCG tablet Take 1 tablet by mouth 2 times daily. Calcium Citrate-Vitamin D 315-5 MG-MCG tablet Take by mouth. carvedilol (Coreg) 25 MG tablet Take 25 mg by mouth 2 times daily. Chromium Picolinate 400 MCG tablet Take by mouth 2 times daily. dapagliflozin (Farxiga) 10 MG tablet Take 10 mg by mouth daily. Flaxseed, Linseed, (Flax Seed Oil) 1000 MG capsule Take 1,000 mg by mouth. fluticasone (Flonase) 50 MCG/ACT nasal spray Administer 1 spray into affected nostril(s). omega-3 acid ethyl esters (Lovaza) 1 g capsule Take 1 g by mouth 2 times daily. potassium citrate CR (Urocit-K-10) 10 mEq ER tablet Take by mouth with evening meal. ramipril (Altace) 10 MG capsule spironolactone-hydroCHLOROthiazid e (Aldactazide) 25-25 MG tablet Take 1 tablet by mouth daily. tadalafil (Adcirca) 20 MG tablet as needed. Tirzepatide (MOUNJARO SC) Inject under the skin. sundays VITAMIN E PO Take by mouth every evening. citric acid-potassium citrate (Polycitra) 1100-334 MG/5ML solution Take by mouth 3 times daily (with meals). (Patient not taking: Reported on 05/01/2024) No current facility-administered medications on file prior to visit. CHRONIC NARCOTIC USAGE: No Allergies: Bee venom, Hazelnut, and Metformin If patient has opioid allergy, is it okay to take Acetaminophen: Yes Social History: TOBACCO: reports that he quit smoking about 30 years ago. His smoking use included cigarettes. He started smoking about 51 years ago. He has a 15.8 pack-year smoking history. He has never used smokeless tobacco. ETOH: reports current alcohol use of about 12.0 standard drinks of alcohol per week. Social History Substance and Sexual Activity Drug Use Never Family History: Family History Problem Relation Name Age of Onset Heart attack Mother Heart failure Mother Heart attack Father No Known Problems Brother marianne No Known Problems Brother teofilo No Known Problems Daughter oliva No Known Problems Daughter sanju Diabetes Sister No Known Problems Sister niharika REVIEW OF SYSTEMS: Review of Systems Constitutional: Negative for chills and fever. HENT: Negative for congestion and sore throat. Eyes: Negative for visual disturbance. Respiratory: Negative for cough and shortness of breath. Cardiovascular: Negative for chest pain, palpitations and leg swelling. Gastrointestinal: Negative for abdominal pain, nausea and vomiting. Genitourinary: Negative for difficulty urinating, dysuria and hematuria. Musculoskeletal: Negative for gait problem and neck stiffness. Skin: Negative for rash and wound. Allergic/Immunologic: Positive for food allergies. Negative for immunocompromised state. Hazelnut, bees - ANAPHYLAXIS Neurological: Negative for dizziness, seizures, syncope and numbness. Hematological: Does not bruise/bleed easily. Psychiatric/Behavioral: Negative for behavioral problems and confusion. Physical Exam: Physical Exam Constitutional: General: He is not in acute distress. Appearance: He is obese. HENT: Head: Normocephalic and atraumatic. Mouth/Throat: Mouth: Mucous membranes are moist. Pharynx: Oropharynx is clear. No oropharyngeal exudate. Eyes: Pupils: Pupils are equal, round, and reactive to light. Cardiovascular: Rate and Rhythm: Normal rate and regular rhythm. Heart sounds: No murmur heard. No friction rub. No gallop. Pulmonary: Effort: Pulmonary effort is normal. No respiratory distress. Breath sounds: No wheezing, rhonchi or rales. Abdominal: General: There is distension. Palpations: Abdomen is soft. Tenderness: There is no abdominal tenderness. Hernia: A hernia is present. Comments: Obese abdomen, UH noted Musculoskeletal: Cervical back: Normal range of motion and neck supple. Comments: Moves all extremities Skin: General: Skin is warm and dry. Capillary Refill: Capillary refill takes less than 2 seconds. Coloration: Skin is not jaundiced. Neurological: General: No focal deficit present. Mental Status: He is alert and oriented to person, place, and time. Psychiatric: Mood and Affect: Mood normal. Behavior: Behavior normal. Vitals: Vitals Value Taken Time BP 154/91 05/01/24 1520 Temp 36.6 C (97.8 F) 05/01/24 1520 Pulse 76 05/01/24 1520 Resp 16 05/01/24 1520 SpO2 97 % 05/01/24 1520 Labs: Lab Results Component Value Date WBC 8.2 05/01/2024 HGB 17.0 05/01/2024 HCT 50.0 05/01/2024 MCV 100.2 (H) 05/01/2024 PLT 216 05/01/2024 Lab Results Component Value Date NA 138 05/01/2024 K 4.3 05/01/2024 CL 98 05/01/2024 CO2 27 05/01/2024 BUN 34 (H) 05/01/2024 CREATININE 1.55 (H) 05/01/2024 GLUCOSE 99 05/01/2024 CALCIUM 10.5 (H) 05/01/2024 EGFR 50.3 (L) 05/01/2024 Iftikhar's Simple Cardiac Risk Index: IFTIKHAR'S SIMPLE CARDIAC RISK SCORE: 0 Interpretation: 0 Points Class I 0.5% 1 Point Class II 1.3% 2 Points Class III 3.6% 3+ Points Class IV 9.1% PAT Pain Score: 0/10 Postop Pain Management Plan (Pain consult ordered?): Pain consult not indicated at this time ? EKG: Encounter Date: 05/01/24 ECG 12 lead Result Value Heart Rate 74 QRSD Interval 95 QT Interval 384 QTC Interval 427 P [place] -4 QRS [place] 51 T Wave [place] 62 NV Interval 186 Impression Sinus rhythm ECHO and EF:None on file METS: >4, No further evaluation is required Electronically signed by: HERBERTH Leon CNP Date: 05/01/2024 at 5:27 PM Cosigned by Carlos Perez DO at 05/01/2024 6:47 PM EDT [facility] 05-03-2024 Note H&P reviewed. The pa guillermo was examined and there are no changes to the H&P. [facility] 05-03-2024 History and physical note H&P reviewed. The patient was examined and there are no changes to the H&P. Source Note - HERBERTH Leon CNP - 05/01/2024 3:00 PM EDT Images from the original note were not included. Comprehensive Pre Surgical History and Physical ? Name: Cathy Aguirre : 1960 (Age-63 y.o.) Date of Service: Pt seen/examined on 05/01/2024 Procedure Information Date/Time: 05/03/24 1230 Procedure: LAPAROSCOPIC UMBILICAL HERNIA REPAIR WITH MESH - 90 mins Location: [facility] OR Operating Room Surgeons: Fely Sanchez MD Chief Complaint: Umbilical hernia with obstruction, without gangrene [K42.0] ASSESSMENT/PLAN: Patient is considered low risk for this intermediate level 2 risk procedure/surgery () with no reducible risk factors. Based on the above evaluation, the benefits of the planned procedure likely exceed the risks. The patient is medically optimized to proceed with the planned procedure without any further cardiopulmonary testing. 1) Umbilical hernia with obstruction, without gangrene [K42.0] - Managed per surgery - Orders per PAT Protocol: A1C, BMP, CBC, EKG - METS >4, No further evaluation is required 2) DAVID - Compliant with CPAP - Advised to bring PAP machine DOS - Consider higher level of care (continuous pulse ox) with this patient due to DAVID and increased risks. 3) HTN BP Readings from Last 3 Encounters: 05/01/24 (!) 154/91 03/08/24 (!) 177/83 - Follows PCP for management - MEDS: carvedilol, ramipril, Aldactazide, potassium citrate - Patient compliant with medication(s) - EKG and labs per PAT protocol 4) DM- Type II No results found for: HGBA1C - Follows PCP for management - MEDS: Farxiga, Mounjaro - Blood glucose goal is <250 DOS - Per PAT protocol; A1c > 9 requires a referral back to PCP/[employer] for further optimization prior to surgery. 5) Morbid Obesity - BMI > 40 6) Former Smoker - quit 30 yrs ago - 16 pack year history 7) ETOH - admits to 12 drinks/week 8) Allergic Rhinitis - MEDS: Flonase 9 ) ASA 81mg - pt reports he takes this BID for prevention - advised to hold x3 days pre-op by Dr. Unger per pt report - reports he stopped his ASA on 04/29 10) Gout - MEDS: allopurinol 11) ED - MEDS: tadalafil prn Visit Type: Pre-Admission Testing Visit Labs Ordered: YES - PER PAT PROTOCOL Sleep Referral Ordered: NO - ALREADY DIAGNOSED WITH DAVID AND COMPLIANT WITH CPAP Total time spent (which include face to face and non face to face encounters) : 30 minutes Toxic drug monitoring/narrow therapeutic index drug monitoring : # Drug name : multiple # Route administered : po # Method of monitoring : labs, EKG PAT Protocol referenced includes: 1. Anesthesia Lab Protocol Orders 2. Perioperative Cardiovascular Risk Assessment 3. Anesthesia Assessment 4. Pain Assessment and Acute Pain Service Consult (if appropriate) 5. Medical Clearance/Consult from Internal Medicine (IMS) 6. Shower/Wash Order (for designated surgeries) 7. DAVID Screen and Sleep Clinic Referral (if appropriate) History Of Present Illness: 63 y.o. male who we are asked to see/evaluate by Dr. Sanchez for pre-operative evaluation prior to ? Case: [id number] Date/Time: 05/03/24 1230 Procedure: LAPAROSCOPIC UMBILICAL HERNIA REPAIR WITH MESH [24715 CPT(R)] - 90 mins Anesthesia type: General Diagnosis: Umbilical hernia with obstruction, without gangrene [K42.0] Location: [facility] OR [facility] Operating Room Surgeons: Fely Sanchez MD From last office visit with Dr. Sanchez on 03/08/24: Cathy Aguirre is a 63 y.o. male who presents with umbilical hernia. Has been present for 8 years. Has gradually increased in size and becoming more bothersome. He has noticed skin color changes and purpleish color. He states that because of the increasing symptoms he wishes to proceed with intervention. Denies n/v or change in bowel habits. 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 No previous abdominal surgeries. H/o CKD, Gout, HTN, DAVID, DM (is on Farxiga). He does not smoke. 12 pack beer per week. Pt has no new complaints at this time. No recent illnesses. Pt denies CP, BRADFORD, edema, orthopnea, PND, dizziness, syncope, near-syncope. Pt denies CAD, OK, stents, CHF, asthma, COPD, TIA/CVA, DVT/PE, seizures. Past Medical History: Past Medical History: No date: Adverse effect of metformin No date: CKD (chronic kidney disease) No date: Colon polyps No date: Diabetes (HCC) No date: Elevated prostate specific antigen (PSA) No date: Erectile dysfunction No date: Gout No date: Hypertension No date: Obesity No date: Osteoarthritis No date: Patellar bursitis of right knee No date: Quadriceps tendonitis No date: Sleep apnea Comment: mini CPAP No date: Umbilical hernia Past Surgical History: Past Surgical History: 2022: COLONOSCOPY No date: LIPOMA EXCISION (HISTORICAL) Comment: Dr Rivera No date: SHOULDER ARTHROSCOPY; Right No date: VASECTOMY Medications Prior to Admission: Current Outpatient Medications on File Prior to Visit Medication Sig Dispense Refill allopurinol (Zyloprim) 300 MG tablet Take 300 mg by mouth daily. aspirin 81 MG EC tablet Take 81 mg by mouth 2 times daily. calcium carbonate-cholecalciferol (Oyster Shell) 250-3.125 MG-MCG tablet Take 1 tablet by mouth 2 times daily. Calcium Citrate-Vitamin D 315-5 MG-MCG tablet Take by mouth. carvedilol (Coreg) 25 MG tablet Take 25 mg by mouth 2 times daily. Chromium Picolinate 400 MCG tablet Take by mouth 2 times daily. dapagliflozin (Farxiga) 10 MG tablet Take 10 mg by mouth daily. Flaxseed, Linseed, (Flax Seed Oil) 1000 MG capsule Take 1,000 mg by mouth. fluticasone (Flonase) 50 MCG/ACT nasal spray Administer 1 spray into affected nostril(s). omega-3 acid ethyl esters (Lovaza) 1 g capsule Take 1 g by mouth 2 times daily. potassium citrate CR (Urocit-K-10) 10 mEq ER tablet Take by mouth with evening meal. ramipril (Altace) 10 MG capsule spironolactone-hydroCHLOROthiazid e (Aldactazide) 25-25 MG tablet Take 1 tablet by mouth daily. tadalafil (Adcirca) 20 MG tablet as needed. Tirzepatide (MOUNJARO SC) Inject under the skin. sundays VITAMIN E PO Take by mouth every evening. citric acid-potassium citrate (Polycitra) 1100-334 MG/5ML solution Take by mouth 3 times daily (with meals). (Patient not taking: Reported on 05/01/2024) No current facility-administered medications on file prior to visit. CHRONIC NARCOTIC USAGE: No Allergies: Bee venom, Hazelnut, and Metformin If patient has opioid allergy, is it okay to take Acetaminophen: Yes Social History: TOBACCO: reports that he quit smoking about 30 years ago. His smoking use included cigarettes. He started smoking about 51 years ago. He has a 15.8 pack-year smoking history. He has never used smokeless tobacco. ETOH: reports current alcohol use of about 12.0 standard drinks of alcohol per week. Social History Substance and Sexual Activity Drug Use Never Family History: Family History Problem Relation Name Age of Onset Heart attack Mother Heart failure Mother Heart attack Father No Known Problems Brother marianne No Known Problems Brother teofilo No Known Problems Daughter oliva No Known Problems Daughter sanju Diabetes Sister No Known Problems Sister niharika REVIEW OF SYSTEMS: Review of Systems Constitutional: Negative for chills and fever. HENT: Negative for congestion and sore throat. Eyes: Negative for visual disturbance. Respiratory: Negative for cough and shortness of breath. Cardiovascular: Negative for chest pain, palpitations and leg swelling. Gastrointestinal: Negative for abdominal pain, nausea and vomiting. Genitourinary: Negative for difficulty urinating, dysuria and hematuria. Musculoskeletal: Negative for gait problem and neck stiffness. Skin: Negative for rash and wound. Allergic/Immunologic: Positive for food allergies. Negative for immunocompromised state. Hazelnut, bees - ANAPHYLAXIS Neurological: Negative for dizziness, seizures, syncope and numbness. Hematological: Does not bruise/bleed easily. Psychiatric/Behavioral: Negative for behavioral problems and confusion. Physical Exam: Physical Exam Constitutional: General: He is not in acute distress. Appearance: He is obese. HENT: Head: Normocephalic and atraumatic. Mouth/Throat: Mouth: Mucous membranes are moist. Pharynx: Oropharynx is clear. No oropharyngeal exudate. Eyes: Pupils: Pupils are equal, round, and reactive to light. Cardiovascular: Rate and Rhythm: Normal rate and regular rhythm. Heart sounds: No murmur heard. No friction rub. No gallop. Pulmonary: Effort: Pulmonary effort is normal. No respiratory distress. Breath sounds: No wheezing, rhonchi or rales. Abdominal: General: There is distension. Palpations: Abdomen is soft. Tenderness: There is no abdominal tenderness. Hernia: A hernia is present. Comments: Obese abdomen, UH noted Musculoskeletal: Cervical back: Normal range of motion and neck supple. Comments: Moves all extremities Skin: General: Skin is warm and dry. Capillary Refill: Capillary refill takes less than 2 seconds. Coloration: Skin is not jaundiced. Neurological: General: No focal deficit present. Mental Status: He is alert and oriented to person, place, and time. Psychiatric: Mood and Affect: Mood normal. Behavior: Behavior normal. Vitals: Vitals Value Taken Time BP 154/91 05/01/24 1520 Temp 36.6 C (97.8 F) 05/01/24 1520 Pulse 76 05/01/24 1520 Resp 16 05/01/24 1520 SpO2 97 % 05/01/24 1520 Labs: Lab Results Component Value Date WBC 8.2 05/01/2024 HGB 17.0 05/01/2024 HCT 50.0 05/01/2024 MCV 100.2 (H) 05/01/2024 PLT 216 05/01/2024 Lab Results Component Value Date NA 138 05/01/2024 K 4.3 05/01/2024 CL 98 05/01/2024 CO2 27 05/01/2024 BUN 34 (H) 05/01/2024 CREATININE 1.55 (H) 05/01/2024 GLUCOSE 99 05/01/2024 CALCIUM 10.5 (H) 05/01/2024 EGFR 50.3 (L) 05/01/2024 Iftikhar's Simple Cardiac Risk Index: IFTIKHAR'S SIMPLE CARDIAC RISK SCORE: 0 Interpretation: 0 Points Class I 0.5% 1 Point Class II 1.3% 2 Points Class III 3.6% 3+ Points Class IV 9.1% PAT Pain Score: 0/10 Postop Pain Management Plan (Pain consult ordered?): Pain consult not indicated at this time ? EKG: Encounter Date: 05/01/24 ECG 12 lead Result Value Heart Rate 74 QRSD Interval 95 QT Interval 384 QTC Interval 427 P [place] -4 QRS [place] 51 T Wave [place] 62 NV Interval 186 Impression Sinus rhythm ECHO and EF:None on file METS: >4, No further evaluation is required Electronically signed by: HERBERTH Leon CNP Date: 05/01/2024 at 5:27 PM Cosigned by Carlos Perez DO at 05/01/2024 6:47 PM EDT documented in this encounter [facility] 05-02-2024 Hospital Discharge instructions Fely Sanchez MD - 05/02/2024 6:33 PM EDT Images from the original note were not included. [facility] - Surgery [facility] Surgery DISCHARGE INSTRUCTIONS FOR DR. SANCHEZ Thank you very much for allowing me to participate in your care, it is truly a privilege. Below please see discharge orders that will help you during your recovery. Please do not hesitate to call the office during the day at [phone] for any questions. After hours, the same number will allow you to reach the on-call surgeon. Please remove the Steri-Strips 5 days after surgery. Please remove the Steri-Strips as instructed 5 days after your date of surgery, remove them on Monday, May 08, 2024. This includes any clear bandages and gauze placed in the navel, if applicable. If you have been provided with an abdominal binder, this is for your comfort. Please take this off in order to shower and use it as needed for your comfort. There is no designated time frame with which you should wear the binder. Again, it is only for your comfort and symptom relief. Please shower the day after surgery. Soap and water is adequate. Keep the incisions clean and dry. No lotions or ointments until you are seen in the office. Surgery can hurt! Please make every effort to take the pain medicine as instructed to help reduce your discomfort. I usually recommend that you take pain medicine when you wake up in the morning and before you go to sleep. Schedule the rest of the day in order to not interfere with medication dosages as prescribed. If you feel that the medicine is not working, please call the office. Should you have nausea after surgery (the most common complaint after surgery) you will be provided with a prescription for Zofran. Please utilize this should you have any postoperative nausea or vomiting. If you feel that the medicine is not working, please call the office. Please use Miralax (available over the counter) until you have a bowel movement. Constipation is routine after surgery and adding the Miralax will help prevent constipation. For any emergencies, please dial 911. Thank you again for allowing me to participate in your care, and get well soon! Best regards, Fely Sanchez M.D., F.A.C.S. documented in this encounter [facility] 05-01-2024 Note Patient: Cathy choi Procedure Information Date/Time: 05/03/24 1230 Procedure: LAPAROSCOPIC UMBILICAL HERNIA REPAIR WITH MESH - 90 mins Location: [facility] OR Operating Room Surgeons: Fely Sanchez MD Relevant Problems Anesthesia Pt has never had GA (+) History of colonic polyps Cardio (+) Essential hypertension, benign (+) Hyperlipidemia (+) Hypertension Endo (+) Type 2 diabetes mellitus without complication, without long-term current use of insulin (CMS/HCC) (HCC) /Renal (+) Chronic renal insufficiency Past Medical History: Past Medical History: No date: Adverse effect of metformin No date: CKD (chronic kidney disease) No date: Colon polyps No date: Diabetes (HCC) No date: Elevated prostate specific antigen (PSA) No date: Erectile dysfunction No date: Gout No date: Hypertension No date: Obesity No date: Osteoarthritis No date: Patellar bursitis of right knee No date: Quadriceps tendonitis No date: Sleep apnea Comment: mini CPAP No date: Umbilical hernia Past Surgical History: Past Surgical History: 2022: COLONOSCOPY No date: LIPOMA EXCISION (HISTORICAL) Comment: Dr Rivera No date: SHOULDER ARTHROSCOPY; Right No date: VASECTOMY Social History: TOBACCO: reports that he quit smoking about 30 years ago. His smoking use included cigarettes. He started smoking about 51 years ago. He has a 15.8 pack-year smoking history. He has never used smokeless tobacco. ETOH: reports current alcohol use of about 12.0 standard drinks of alcohol per week. Social History Substance and Sexual Activity Drug Use Never Family History: Family History Problem Relation Name Age of Onset Heart attack Mother Heart failure Mother Heart attack Father No Known Problems Brother marianne No Known Problems Brother teofilo No Known Problems Daughter oliva No Known Problems Daughter sanju Diabetes Sister No Known Problems Sister niharika Screening: unknown Clinical information reviewed: Tobacco Allergies Meds Med Hx Surg Hx Fam Hx Soc Hx Physical Exam Airway Mallampati: IV TM distance: >3 FB Neck ROM: full Mouth Open: normalendotracheal tube not in place Cardiovascular Dental (+) chipped Comments: Broken crown upper right Pulmonary Abdominal Anesthesia Plan patient is NPO appropriate Any family history or previous problems with anesthesia no ASA 3 general and regional Any family history or previous problems with anesthesia no The patient is not a current smoker. Anesthetic plan and risks discussed with spouse and patient. Anesthesia Rider Considerations [place] scope with rsi DAVID Screening Labs: No results found for: WBC, HGB, HCT, MCV, PLT No results found for: SODIUM, NA, POTASSIUM, K, CHLORIDE, CL, CO2, BUN, CREATININE, GLUCOSE, CALCIUM, PROT, BILIRUBINFL, ALKPHOS, AST, ALT, EGFR, GLOB No echocardiogram results found for the past 14 days No results found for this or any previous visit. Equipment Requests: Additional Equipment Requests Additional Equipment: ultrasound Block Team [facility] 05-01-2024 Note Comprehensive Pre Moreno rgical History and Physical ? Name: Cathy Aguirre : 1960 (Age-63 y.o.) Date of Service: Pt seen/examined on 05/01/2024 Procedure Information Date/Time: 05/03/24 1230 Procedure: LAPAROSCOPIC UMBILICAL HERNIA REPAIR WITH MESH - 90 mins Location: [facility] OR Operating Room Surgeons: Fely Sanchez MD Chief Complaint: Umbilical hernia with obstruction, without gangrene [K42.0] ASSESSMENT/PLAN: Patient is considered low risk for this intermediate level 2 risk procedure/surgery () with no reducible risk factors. Based on the above evaluation, the benefits of the planned procedure likely exceed the risks. The patient is medically optimized to proceed with the planned procedure without any further cardiopulmonary testing. 1) Umbilical hernia with obstruction, without gangrene [K42.0] - Managed per surgery - Orders per PAT Protocol: A1C, BMP, CBC, EKG - METS >4, No further evaluation is required 2) DAVID - Compliant with CPAP - Advised to bring PAP machine DOS - Consider higher level of care (continuous pulse ox) with this patient due to DAVID and increased risks. 3) HTN BP Readings from Last 3 Encounters: 05/01/24 (!) 154/91 03/08/24 (!) 177/83 - Follows PCP for management - MEDS: carvedilol, ramipril, Aldactazide, potassium citrate - Patient compliant with medication(s) - EKG and labs per PAT protocol 4) DM- Type II No results found for: HGBA1C - Follows PCP for management - MEDS: Nichole Setele - Blood glucose goal is <250 DOS - Per PAT protocol; A1c > 9 requires a referral back to PCP/[employer] for further optimization prior to surgery. 5) Morbid Obesity - BMI > 40 6) Former Smoker - quit 30 yrs ago - 16 pack year history 7) ETOH - admits to 12 drinks/week 8) Allergic Rhinitis - MEDS: Flonase 9 ) ASA 81mg - pt reports he takes this BID for prevention - advised to hold x3 days pre-op by Dr. Unger per pt report - reports he stopped his ASA on 04/29 10) Gout - MEDS: allopurinol 11) ED - MEDS: tadalafil prn Visit Type: Pre-Admission Testing Visit Labs Ordered: YES - PER PAT PROTOCOL Sleep Referral Ordered: NO - ALREADY DIAGNOSED WITH DAVID AND COMPLIANT WITH CPAP Total time spent (which include face to face and non face to face encounters) : 30 minutes Toxic drug monitoring/narrow therapeutic index drug monitoring : # Drug name : multiple # Route administered : po # Method of monitoring : labs, EKG PAT Protocol referenced includes: 1. Anesthesia Lab Protocol Orders 2. Perioperative Cardiovascular Risk Assessment 3. Anesthesia Assessment 4. Pain Assessment and Acute Pain Service Consult (if appropriate) 5. Medical Clearance/Consult from Internal Medicine (IMS) 6. Shower/Wash Order (for designated surgeries) 7. DAVID Screen and Sleep Clinic Referral (if appropriate) History Of Present Illness: 63 y.o. male who we are asked to see/evaluate by Dr. Sanchez for pre-operative evaluation prior to ? Case: [id number] Date/Time: 05/03/24 1230 Procedure: LAPAROSCOPIC UMBILICAL HERNIA REPAIR WITH MESH [50766 CPT(R)] - 90 mins Anesthesia type: General Diagnosis: Umbilical hernia with obstruction, without gangrene [K42.0] Location: [facility] OR Operating Room Surgeons: Fely Sanchez MD From last office visit with Dr. Sanchez on 03/08/24: Cathy Aguirre is a 63 y.o. male who presents with umbilical hernia. Has been present for 8 years. Has gradually increased in size and becoming more bothersome. He has noticed skin color changes and purpleish color. He states that because of the increasing symptoms he wishes to proceed with intervention. Denies n/v or change in bowel habits. 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 No previous abdominal surgeries. H/o CKD, Gout, HTN, DAVID, DM (is on [place]). He does not smoke. 12 pack beer per week. Pt has no new complaints at this time. No recent illnesses. Pt denies CP, BR[place]FORD, edema, orthopnea, PND, dizziness, syncope, near-syncope. Pt denies CAD, OK, stents, CHF, asthma, COPD, TIA/CVA, DVT/PE, seizures. Past Medical History: Past Medical History: No date: Adverse effect of metformin No date: CKD (chronic kidney disease) No date: Colon polyps No date: Diabetes (HCC) No date: Elevated prostate specific antigen (PSA) No date: Erectile dysfunction No date: Gout No date: Hypertension No date: Obesity No date: Osteoarthritis No date: Patellar bursitis of right knee No date: Quadriceps tendonitis No date: Sleep apnea Comment: mini CPAP No date: Umbilical hernia Past Surgical History: Past Surgical History: 2022: COLONOSCOPY No date: LIPOMA EXCISION (HISTORICAL) Comment: Dr Rivera No date: SHOULDER ARTHROSCOPY; Right No date: VASECTOMY (more content not included)... [facility] 05-01-2024 Note Comprehensive Pre More[place] rgical History and Physical ? Name: Cathy FARAHN: [id number] : 1960 (Age-63 y.o.) Date of Service: Pt seen/examined on 05/01/2024 Procedure Information Date/Time: 05/03/24 1230 Procedure: LAPAROSCOPIC UMBILICAL HERNIA REPAIR WITH MESH - 90 mins Location: [facility] OR Operating Room Surgeons: Fely Sanchez MD Chief Complaint: Umbilical hernia with obstruction, without gangrene [K42.0] ASSESSMENT/PLAN: Patient is considered low risk for this intermediate level 2 risk procedure/surgery () with no reducible risk factors. Based on the above evaluation, the benefits of the planned procedure likely exceed the risks. The patient is medically optimized to proceed with the planned procedure without any further cardiopulmonary testing. 1) Umbilical hernia with obstruction, without gangrene [K42.0] - Managed per surgery - Orders per PAT Protocol: A1C, BMP, CBC, EKG - METS >4, No further evaluation is required 2) DAVID - Compliant with CPAP - Advised to bring PAP machine DOS - Consider higher level of care (continuous pulse ox) with this patient due to DAVID and increased risks. 3) HTN BP Readings from Last 3 Encounters: 05/01/24 (!) 154/91 03/08/24 (!) 177/83 - Follows PCP for management - MEDS: carvedilol, ramipril, Aldactazide, potassium citrate - Patient compliant with medication(s) - EKG and labs per PAT protocol 4) DM- Type II No results found for: HGBA1C - Follows PCP for management - MEDS: Nichole Steele - Blood glucose goal is <250 DOS - Per PAT protocol; A1c > 9 requires a referral back to PCP/[employer] for further optimization prior to surgery. 5) Morbid Obesity - BMI > 40 6) Former Smoker - quit 30 yrs ago - 16 pack year history 7) ETOH - admits to 12 drinks/week 8) Allergic Rhinitis - MEDS: Flonase 9 ) ASA 81mg - pt reports he takes this BID for prevention - advised to hold x3 days pre-op by Dr. Unger per pt report - reports he stopped his ASA on 04/29 10) Gout - MEDS: allopurinol 11) ED - MEDS: tadalafil prn Visit Type: Pre-Admission Testing Visit Labs Ordered: YES - PER PAT PROTOCOL Sleep Referral Ordered: NO - ALREADY DIAGNOSED WITH DAVID AND COMPLIANT WITH CPAP Total time spent (which include face to face and non face to face encounters) : 30 minutes Toxic drug monitoring/narrow therapeutic index drug monitoring : # Drug name : multiple # Route administered : po # Method of monitoring : labs, EKG PAT Protocol referenced includes: 1. Anesthesia Lab Protocol Orders 2. Perioperative Cardiovascular Risk Assessment 3. Anesthesia Assessment 4. Pain Assessment and Acute Pain Service Consult (if appropriate) 5. Medical Clearance/Consult from Internal Medicine (IMS) 6. Shower/Wash Order (for designated surgeries) 7. DAVID Screen and Sleep Clinic Referral (if appropriate) History Of Present Illness: 63 y.o. male who we are asked to see/evaluate by Dr. Sanchez for pre-operative evaluation prior to ? Case: [id number] Date/Time: 05/03/24 1230 Procedure: LAPAROSCOPIC UMBILICAL HERNIA REPAIR WITH MESH [52960 CPT(R)] - 90 mins Anesthesia type: General Diagnosis: Umbilical hernia with obstruction, without gangrene [K42.0] Location: [facility] OR [address] [place] [address] Operating Room Surgeons: Fely Sanchez MD From last office visit with Dr. Sanchez on 03/08/24: Cathy Aguirre is a 63 y.o. male who presents with umbilical hernia. Has been present for 8 years. Has gradually increased in size and becoming more bothersome. He has noticed skin color changes and purpleish color. He states that because of the increasing symptoms he wishes to proceed with intervention. Denies n/v or change in bowel habits. 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 No previous abdominal surgeries. H/o CKD, Gout, HTN, DAVID, DM (is on Farxiga). He does not smoke. 12 pack beer per week. Pt has no new complaints at this time. No recent illnesses. Pt denies CP, [place], edema, orthopnea, PND, dizziness, syncope, near-syncope. Pt denies CAD, OK, stents, CHF, asthma, COPD, TIA/CVA, DVT/PE, seizures. Past Medical History: Past Medical History: No date: Adverse effect of metformin No date: CKD (chronic kidney disease) No date: Colon polyps No date: Diabetes (HCC) No date: Elevated prostate specific antigen (PSA) No date: Erectile dysfunction No date: Gout No date: Hypertension No date: Obesity No date: Osteoarthritis No date: Patellar bursitis of right knee No date: Quadriceps tendonitis No date: Sleep apnea Comment: mini CPAP No date: Umbilical hernia Past Surgical History: Past Surgical History: 2022: COLONOSCOPY No date: LIPOMA EXCISION (HISTORICAL) Comment: Dr Rivera No date: SHOULDER ARTHROSCOPY; Right No date: VASECTOMY (more content not included)... [facility] 03-11-[address] Manley's office will be faxing lab results. Las A1C was done 01/04/24 and was 6.9 [employer] Work Phone: 03-11-2024 Telephone encounter Note ----- Message from Fely Sanchez MD sent at 03/08/2024 5:27 PM EST ----- Please get a recent hemoglobin A1c from his PCP for review, must be less than 8 to proceed with elective surgery. [facility] 03-11-[address] Manley's office will be faxing lab results. Las A1C was done 01/04/24 and was 6.9 ----- Message from Fely Sanchez MD sent at 03/08/2024 5:27 PM EST ----- Please get a recent hemoglobin A1c from his PCP for review, must be less than 8 to proceed with elective surgery. documented in this encounter [facility] 03-08-2024 History of Present illness Narrative [facility] Medical [facility] Surgery Patient Name: Cathy Aguirre Date: 03/08/24 HPI: Cathy Aguirre is a 63 y.o. male who presents with umbilical hernia. Has been present for 8 years. Has gradually increased in size and becoming more bothersome. He has noticed skin color changes and purpleish color. He states that because of the increasing symptoms he wishes to proceed with intervention. Denies n/v or change in bowel habits. 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 No previous abdominal surgeries. H/o CKD, Gout, HTN, DAVID, DM (is on Farxiga). He does not smoke. 12 pack beer per week. I personally reviewed the patient intake form and discussed the ROS with the patient. The ROS is negative except for what is listed in HPI. Dr Manley OV note 01/08/24 reviewed PMHx: Past Medical History: Diagnosis Date Adverse effect of metformin CKD (chronic kidney disease) Colon polyps Diabetes (HCC) Elevated prostate specific antigen (PSA) Erectile dysfunction Gout Hypertension Obesity Osteoarthritis Patellar bursitis of right knee Quadriceps tendonitis Sleep apnea Umbilical hernia PSHx: Past Surgical History: Procedure Laterality Date COLONOSCOPY 2022 LIPOMA EXCISION (HISTORICAL) Dr Rivera SHOULDER ARTHROSCOPY Right VASECTOMY PFMHx: Family History Problem Relation Name Age of Onset Heart attack Mother Heart failure Mother Heart attack Father No Known Problems Brother marianne No Known Problems Brother teofilo No Known Problems Daughter oliva No Known Problems Daughter sanju Diabetes Sister No Known Problems Sister niharika ALL: Allergies Allergen Reactions Bee Venom Other Reaction(s): Anaphylaxis Hazelnut MEDS: Current Outpatient Medications Medication Sig Dispense Refill allopurinol (Zyloprim) 300 MG tablet Take 300 mg by mouth daily. calcium carbonate-cholecalciferol (Oyster Shell) 250-3.125 MG-MCG tablet Take 1 tablet by mouth. Calcium Citrate-Vitamin D 315-5 MG-MCG tablet Take by mouth. carvedilol (Coreg) 25 MG tablet Take 25 mg by mouth 2 times daily. Chromium Picolinate 400 MCG tablet Take by mouth. citric acid-potassium citrate (Polycitra) 1100-334 MG/5ML solution Take by mouth 3 times daily (with meals). dapagliflozin (Farxiga) 10 MG tablet Take 10 mg by mouth daily. Flaxseed, Linseed, (Flax Seed Oil) 1000 MG capsule Take 1,000 mg by mouth. fluticasone (Flonase) 50 MCG/ACT nasal spray Administer 1 spray into affected nostril(s). omega-3 acid ethyl esters (Lovaza) 1 g capsule Take 1 g by mouth 2 times daily. potassium citrate CR (Urocit-K-10) 10 mEq ER tablet Take by mouth. ramipril (Altace) 10 MG capsule spironolactone-hydroCHLOROthiazid e (Aldactazide) 25-25 MG tablet Take 1 tablet by mouth daily. tadalafil (Adcirca) 20 MG tablet No current facility-administered medications for this visit. SOCIAL Hx: Social History Socioeconomic History Marital status: Spouse name: Not on file Number of children: Not on file Years of education: Not on file Highest education level: Not on file Occupational History Not on file Tobacco Use Smoking status: Never Smokeless tobacco: Never Substance and Sexual Activity Alcohol use: Yes Alcohol/week: 12.0 standard drinks of alcohol Types: 12 Cans of beer per week Comment: 12 pack per week Drug use: Never Sexual activity: Not on file Other Topics Concern Not on file Social History Narrative Not on file Social Drivers of Health Financial Resource Strain: Not on file Food Insecurity: Not on file Transportation Needs: Not on file Physical Activity: Not on file Stress: Not on file Social Connections: Not on file Intimate Partner Violence: Not on file Housing Stability: Not on file Physical Examination: BP (!) 177/83 (BP Location: Right arm, Patient Position: Sitting, BP Cuff Size: Large adult) Pulse 98 Temp 36.9 C (98.4 F) Ht 5' 11 (1.803 m) Wt 297 lb (135 kg) BMI 41.42 kg/m He stands Height: 5' 11 (180.3 cm) tall with a weight of Weight: 297 lb (135 kg) , resulting in a BMI of Body mass index is 41.42 kg/m .. General: The patient is awake, alert, and oriented, and is in no apparent distress. Cardiac: Regular rate and rhythm Respiratory: No respiratory distress. Clear to auscultation bilaterally. Abdomen: Central obesity. Soft, non tender, non distended. BS present -no prior abdominal surgery, no scars are noted Extremities: Ambulatory without assistance. Skin: No rashes or lesions noted. Hernia: Non tender, only partially reducible umbilical hernia-purpleish skin discoloration He will not need medical risk stratification from his primary care physician. We will proceed with surgical intervention. I met with the patient today to discuss risks and benefits of laparoscopic ventral/incisional herniorrhaphy, including, but not limited to conversion to open, recurrence of the hernia, chronic pain, nerve injury, infection including mesh infection and need to remove the mesh, conversion to open and injury to surrounding structures including bowel injury. We discussed potential for hemorrhage, infection, incomplete resolution of his symptoms, as well as cardiac and pulmonary-related complications. The patient understands and wishes to proceed. Non-operative alternatives were discussed with the patient and they wish to proceed with surgical intervention. Plan: Initial Pre-Operative Testing Primary Procedure: Laparoscopic umbilical hernia repair with mesh Clearance: PAT Assessment/Plan Cathy was seen today for new patient. Diagnoses and all orders for this visit: Umbilical hernia with obstruction, without gangrene (Primary) BMI 40.0-44.9, adult (HCC) Umbilical pain Type 2 diabetes mellitus with other specified complication, unspecified whether tank terminal gauger insulin use (HCC) Morbid obesity with BMI of 40.0-44.9, adult (HCC) Primary hypertension 63yo M with symptomatic umbilical hernia that is enlarging in size. We discussed laparoscopic repair with mesh and he wishes to proceed. Also discussed importance of good glycemic control prior to surgery. Will request his most recent A1C from his pcp. Will request his hemoglobin A1c to be less than 8 to proceed with elective intervention. Visual aids used in discussion and all his questions answered to his satisfaction. Will proceed with scheduling. I personally performed the evaluation and management of Cathy Aguirre in the development of a treatment plan for this patient. I personally interviewed the patient and performed an individual physical examination. In addition, I discussed the patient's condition and treatment options with them. I have also reviewed and agree with the past medical, family and social history unless otherwise noted. All of the patient's questions were answered. I discussed/counseled the patient regarding the risks and benefits of surgery as well as the preoperative and postoperative care plan for this patient.The patient was seen and examined independently and relevant data reviewed by myself. A full chart review was performed. Patient Care Team: Amy Manley as PCP - General (Family Medicine) hf We want to inform you that your patient's blood pressure was noted to be elevated in our office today. We thank you for trusting us with your patient's health. Last BP: 03/08/24: 177/83 BP Readings from Last 3 Encounters: No data found for BP Called pt to schedule, LVM Sx scheduled 05/03, case entered, paperwork mailed documented in this encounter [facility] 03-07-2023 Procedure note [facility] 03-07-2023 Procedure note [facility] 01-10-2022 Note HNO ID: [id number] Author: Larry Schwartz MD Service: ? Author Type: Physician Type: Progress Notes Filed: 01/10/2022 10:19 AM Note Text: ASSESSMENT/PLAN: 1. Benign lesion of eyelid/cystic lesion - ICD9: 374.9, ICD10: H02.9 (primary diagnosis) Plan excision of benign cystic lesion Right Eye, upper lid, on at [facility]. Current Ophthalmic Meds tobramycin-dexAMETHasone (TOBRADEX) 0.3-0.1 % [...] to monitor with primary care physician. Larry Schwartz MD I have confirmed and edited as [...] about the findings, diagnosis, and treatment options. [facility] 01-10-2022 History and physical note HISTORY AND [...] dialysis. No history of symptoms or problems. PULMONARY NURSE PRACTITIONER: N/A : N/A Endocrine: No history of [...] and voices comprehension and compliance. SIGNATURE: Larry Schwartz MD PATIENT NAME: Cathy Aguirre DATE: January 10, 2022 TIME: 10:16 AM PAGER/CONTACT #: documented in this encounter [facility] 01-10-2022 Instructions Larry Schwartz MD - 01/10/2022 10:16 AM EST Plan excision of benign cystic lesion Right Eye, upper lid, on at [facility]. Current Ophthalmic Meds tobramycin-dexAMETHasone (TOBRADEX) 0.3-0.1 % ophthalmic ointment Starting on 01/14/2022. Use 1 application in the right eye daily at bedtime. BRING UNOPENED TO SURGERY. If you have any questions please contact our office at [phone]. After office hours or on the weekend, please call Dr. Schwartz on his cell phone at [phone]. documented in this encounter [facility] 01-10-2022 History of Present illness Narrative ASSESSMENT/PLAN: 1. Benign lesion of eyelid/cystic lesion - ICD9: 374.9, ICD10: H02.9 (primary diagnosis) Plan excision of benign cystic lesion Right Eye, upper lid, on at [facility]. Current Ophthalmic Meds tobramycin-dexAMETHasone (TOBRADEX) 0.3-0.1 % [...] to monitor with primary care physician. Larry Schwartz MD I have confirmed and edited as [...] and treatment options. documented in this encounter [facility] 09-15-2021 Note HNO ID: [id number] Author: Larry Schwartz MD Service: ? Author Type: Physician Type: Progress Notes Filed: 09/15/2021 9:21 AM Note Text: ASSESSMENT/PLAN: 1. Benign lesion of eyelid/cystic lesion right eye - ICD9: 374.9, ICD10: H02.9 (primary diagnosis) Blood pressure 158/89, pulse 69. Plan removal at [facility]- will call to schedule 2. Diet-controlled diabetes [...] Continue care with primary care physician Larry Schwartz MD I have confirmed and edited as [...] about the findings, diagnosis, and treatment options. [facility] 09-15-2021 History of Present illness Narrative ASSESSMENT/PLAN: 1. Benign lesion of eyelid/cystic lesion right eye - ICD9: 374.9, ICD10: H02.9 (primary diagnosis) Blood pressure 158/89, pulse 69. Plan removal at [facility]- will call to schedule 2. Diet-controlled diabetes [...] Continue care with primary care physician Larry Schwartz MD I have confirmed and edited as [...] and treatment options. documented in this encounter [facility] Evaluation note No assessment inform ation available [facility] Work Phone: Evaluation note Diagnosis Benign lesion of eyelid/cystic lesion- Primary Unspecified disorder of eyelid Diet-controlled diabetes mellitus (HCC) Unspecified sleep apnea Hypertension, essential Unspecified essential hypertension Hyperlipidemia, unspecified hyperlipidemia type [facility] Diagnosis Benign lesion of eyelid- Primary Unspecified disorder of eyelid [facility] Diagnosis Benign lesion of eyelid/cystic lesion- Primary Unspecified disorder of eyelid Essential hypertension Unspecified essential hypertension Gout, unspecified cause, unspecified chronicity, unspecified site Benign lesion of eyelid Unspecified disorder of eyelid [facility] Diagnosis Onset Date Resolution Status History of colon polyps acut e [facility] Work Phone: Evaluation note* Diagnosis Onset Date Resolution Status History of colon polyps acut e GI bleed acute [facility] Work Phone: Evaluation note* Diagnosis Onset Date Resolution Status GI bleed acute [facility] Work Phone: Evaluation note* Diagnosis Umbilical hernia with obstruction, without gangrene- Primary Umbilical hernia with obstruction BMI 40.0-44.9, adult ([facility]) Umbilical pain Abdominal pain, unspecified site Type 2 diabetes mellitus with other specified complication, unspecified whether nursing home insulin use ([facility]) Morbid obesity with BMI of 40.0-44.9, adult ([facility]) Primary hypertension Unspecified essential hypertension Umbilical hernia with obstruction, without gangrene Umbilical hernia with obstruction documented in this encounter [facility] note* Diagnosis Umbilical hernia without obstruction or gangrene- Primary Umbilical hernia without mention of obstruction or gangrene Chronic renal insufficiency Chronic kidney disease, unspecified Incarcerated umbilical hernia Umbilical hernia with obstruction Umbilical pain Abdominal pain, unspecified site Type 2 diabetes mellitus without complication, without long-term current use of insulin ([facility]) (HCC) Morbid obesity with BMI of 40.0-44.9, adult (HCC) [facility] Diagnosis Umbilical hernia with obstruction, without gangrene- Primary Umbilical hernia with obstruction Encounter for postoperative care documented in this encounter [facility] HealthHistory and physical note Author Lior Aguilar [facility] March 07, 2023 7:07am Note Date/Time March 07, 2023 7 :07am [facility] Medical Records Department [address] [place] [address] History & Physical Exam 03/07/2306 MR#: [id number] Acct: [id number] Name: CATHY AGUIRRE Rep #:[id number] : 1960 62 From: Lior gregory MD PCP: Dr. Amy Manley MD Status:[facility] Location: [facility]12- History and Physical Date of Admission: 03/07/23 Intake Vital Signs 12/20/2307:08 Height 5 ft 11 in Weight: 284 lb BMI 39.6 BP 165/96 H Blood Pressure Location Rt brachial Position Sitting Respiration 17 Pulse 65 Pulse Source Monitor Temp 97.7 F L Temp Source Temporal Pulse Oximetry (%) 96 Oxygen Delivery Method room air Intake Visit Reasons: SCOPE/HERNIA Chief Complaint: scope/hernia Is patient in pain?: No Allergies bee venom protein (honey bee) Allergy (Severe, Verified 12/19/22 08:19) Anaphylaxishazelnut Allergy (Severe, Verified 12/19/22 08:19) Anaphylaxis Medications allopurinol 300 mg tablet 300 mg PO DAILY 12/19/22 [History Confirmed 12/19/22] calcium carbonate 200 mg calcium (500 mg) chewable tablet 200 mg PO DAILY 12/19/22 [History Confirmed 12/19/22] carvedilol 25 mg tablet 25 mg PO BID 12/19/22 [History Confirmed 12/19/22] cholecalciferol (vitamin D3) 50 mcg (2,000 unit) capsule 50 mcg PO DAILY 12/19/22 [History Confirmed 12/19/22] chromium picolinate 400 mcg tablet 400 mcg PO DAILY 12/19/22 [History Confirmed 12/19/22] dapagliflozin propanediol 10 mg tablet (Farxiga) 10 mg PO DAILY 12/19/22 [History Confirmed 12/19/22] flaxseed oil 1,000 mg capsule 1,000 mg PO DAILY 12/19/22 [History Confirmed 12/19/22] fluticasone propionate 50 mcg/actuation nasal spray,suspension (Flonase Allergy Relief) 1 spray intranasal DAILY 12/19/22 [History Confirmed 12/19/22] magnesium oxide 400 mg PO DAILY 12/19/22 [History Confirmed 12/19/22] omega-3 fatty acids 1,000 mg capsule 1,000 mg PO DAILY 12/19/22 [History Confirmed 12/19/22] potassium citrate 10 mEq (1,080 mg) tablet,extended release 10 meq PO DAILY 12/19/22 [History Confirmed 12/19/22] ramipril 10 mg capsule 10 mg PO DAILY 12/19/22 [History Confirmed 12/19/22] tumeric 100 mg-wan 150 mg-olive 50 mg-oreg 150 mg-caprylate capsule cap PO 12/19/22 [History Confirmed 12/19/22] vitamin E (dl, acetate) 90 mg (200 unit) capsule 90 mg PO DAILY 12/19/22 [History Confirmed 12/19/22] PFSH Social History (Updated 12/19/22 @ 08:08 by Nancy Junior) Smoking Status: Former smoker alcohol intake: current substance use type: does not use HPI HPI HPI: Patient is a 62-year-old male here for surveillance colonoscopy. Patient has last colonoscopy 5 years ago and 3 polyps were removed. Patient denies any abdominal pain or blood in the stool. ROS General General: No weight change, appetite, fatigue, colon cancer, breast cancer or weakness HEENT HEENT: No difficulty swallowing, eye injury, eye surgery, swollen glands or hoarseness Endo Endocrine: Yes diabetes mellitus; No thyroid disease, thyroid cancer, Hair loss, heat intolerance or cold intolerance Skin Skin: No rash or changing moles Musc Musculoskeletal: Yes gout; No back problems, arthritis, rheumatoid arthritis or joint pain Cardio Cardiovascular: Yes high blood pressure; No murmur, pacemaker, heart disease, atrial fibrillation, heart attack, heart stent, palpitations, shortness of breat with exertion or chest pain Psych Psychiatric: No depression, anxiety or hearing voices Resp Respiratory: No shortness of breath, No sleep apnea, No cough, No COPD, No asthma, No emphysema and No wheezing Gastro Gastrointestinal: No abdominal pain, No nausea or vomiting, No diarrhea, No constipation, No blood in stool, No acid reflux, No hemorrhoids, No ulcers, No gallbladder problem and No black,tarry stools Antonio Hematologic: No blood thinners, No blood disorders, No bleeding, No anemia and No blood clots Neuro Neurologic: No system reviewed and no additional complaints, except as documented, No as per HPI, No abnormal gait, No abnormal hearing, No abnormal movements, No abnormal speech, No behavioral changes, No burning sensations, No confusion, No convulsions, No disequilibrium, No dizziness, No localized weakness, No frequent falls, No headache(s), No lack of coordination, No loss ofvision, No memory loss, No numbness, No other visual disturbances, No radicular pain, No restless legs, No sensory deficit, No syncope, No tingling, No tremor(s), No weakness and No other Exam Const General: cooperative Orientation: alert and oriented x3 HENMT Head: normal to inspection Neck Neck: normal visual inspection and full ROM Chest Chest palpation & inspection: normal inspection of the chest Resp Effort & Inspection: normal respiratory effort Auscultation: clear to auscultation bilaterally Cardio Rate: regular rate Rhythm: regular rhythm GI Inspection: non-distended Palpation: soft and nontender Skin General: no rashes or lesions noted Neuro General: patient alert and patient oriented x3 Extrem General: full ROM Psych Appearance: grossly normal Mental Status: mental status grossly normal Assessment and Plan Assessment and Plan (1) History of colon polyps: Status: Acute Plan: The patient has a history of colon polyps and requires surveillance colonoscopy. Patient also has an umbilical hernia but he would like this repaired in the spring when he is done with his busy season. He will come back to discuss hernia repair. I explained endoscopy in detail to the patient. I explained the risks includingbut not limited to stroke or heart attack with anesthesia, perforation of the GItract, bleeding, infection. I explained that any of these could necessitate further emergency surgery. The patient understands and all questions were answered sufficiently. The patient wishes to proceed with procedure. Lior Aguilar MD Pager: [facility] [address] [place] [address], [address] [place] [phone] Office: I have examined the patient and the H&P has been reviewed. There are no clinicalchanges since date of exam. 03/07/23 0707 <Electronically signed by Lior Aguilar MD> Cosigner Signature (if applicable): CC: Dr. Lior Aguilar MD; Dr. Amy Manley MD~ Signed [facility] Work Phone: History and physical note Author Lior Aguilar [facility] March 10, 2023 10:41am Note Date/Time March 10, 2023 1 0:41am [facility] Medical Records Department [address] [place] [address] H&P Exam - Surgical 03/10/23 1038 MR#: [id number] Acct: [id number] Name: CATHY AGUIRRE Rep #:[id number] : 1960 62 From: Lior gregory MD PCP: Dr. Amy Manley MD Status:[facility] Location: [place] [address] HPI - General HPI Narrative CATHY AGUIRRE, is a 62 M who presents with GI bleeding. The patient had a colonoscopy 4 days ago. The patient reports the day after his colonoscopy was normal and he had a normal bowel movement but then the day after that he startedhaving red stools. He did have a polypectomy that day. It was at the rectosigmoid junction. [facility] Medical History (Updated 03/10/23 @ 10:[address] Lior Aguilar MD) Alcohol use Arthritis Borderline diabetes CPAP (continuous positive airway pressure) dependence History of irregular heartbeat Umbilical hernia Home Medications allopurinol 300 mg tablet 300 mg PO DAILY 12/19/22 [History Last Taken 03/06/23] calcium carbonate 200 mg calcium (500 mg) chewable tablet 200 mg PO DAILY 12/19/22 [History Last Taken 03/04/23] carvedilol 25 mg tablet 25 mg PO BID 12/19/22 [History Last Taken 03/07/23] cholecalciferol (vitamin D3) 50 mcg (2,000 unit) capsule 50 mcg PO DAILY 12/19/22 [History Last Taken 03/04/23] chromium picolinate 400 mcg tablet 400 mcg PO DAILY 12/19/22 [History Last Taken 03/04/23] dapagliflozin propanediol 10 mg tablet (Farxiga) 10 mg PO DAILY 12/19/22 [History Last Taken 03/06/23] flaxseed oil 1,000 mg capsule 1,000 mg PO DAILY 12/19/22 [History Last Taken 03/04/23] fluticasone propionate 50 mcg/actuation nasal spray,suspension (Flonase Allergy Relief) 1 spray intranasal DAILY 12/19/22 [History Last Taken 03/06/23] magnesium oxide 400 mg PO DAILY 12/19/22 [History Last Taken 03/06/23] omega-3 fatty acids 1,000 mg capsule 1,000 mg PO DAILY 12/19/22 [History Last Taken 03/04/23] potassium citrate 10 mEq (1,080 mg) tablet,extended release 10 meq PO DAILY 12/19/22 [History Last Taken 03/04/23] ramipril 10 mg capsule 10 mg PO DAILY 12/19/22 [History Last Taken 03/07/23] turmeric 100 mg-wan 150 mg-olive 50 mg-oreg 150 mg-capryl capsule 1 cap PO DAILY 12/19/22 [History Last Taken 03/04/23] vitamin E (dl, acetate) 90 mg (200 unit) capsule 90 mg PO DAILY 12/19/22 [History Last Taken 03/04/23] Allergy/AdvReac Type Severity Reaction Status Date / Time bee venom protein (honey bee) Allergy Severe Anaphylaxis Verified 03/02/23 13:48 hazelnut Allergy Severe Anaphylaxis Verified 03/02/23 13:48 Surgical History H/O shoulder surgery Social History (Updated 12/19/22 @ 08:08 by Nancy Junior) Smoking Status: Former smoker alcohol intake: current substance use type: does not use ROS Constitutional Constitutional: Denies anorexia or fatigue Eyes Eyes: Denies blurry vision ENT HEENT: Denies abnormal hearing Cardiovascular Cardiovascular: Denies chest pain Respiratory/Chest Respiratory/Chest: Denies cough or dyspnea Gastrointestinal Gastrointestinal: Reports rectal bleeding; Denies abdominal pain Genitourinary Genitourinary: Denies change in urinary stream Musculoskeletal Musculoskeletal: Denies abnormal gait Integumentary Integumentary: Denies jaundice Physical Exam Const oriented x3 and no apparent distress Resp normal respiratory effort GI soft to palpation and non-tender Inspection: Negative for abdominal distention Assessment & Plan Assessment/Plan (1) GI bleed: QUALIFIERS: GI bleed type/associated pathology: anorectal hemorrhage Qualified Code(s): K62.5 - Hemorrhage of anus and rectum PLAN: The patient had a polyp removed from the rectosigmoid junction. This cameback as a fibrolipoma. The patient said that he was normal the day after the procedure but the day after that he started having bleeding. We performed a bowel prep yesterday afternoon he comes in today for elective flexible sigmoidoscopy to evaluate the polypectomy site to see if any clips need to be placed or if any bleeding needs to be stopped. I explained endoscopy in detail to the patient. I explained the risks including but not limited to stroke or heart attack with anesthesia, perforation of the GI tract, bleeding, infection. I explained that any of these could necessitate further emergency surgery. The patient understands and all questions were answered sufficiently. The patient wishes to proceed with procedure. Lior Aguilar MD Pager: [facility] [address] [place] [address], [address] [place] [address] Office: 03/10/23 1041 <Electronically signed by Lior Aguilar MD> Cosigner Signature (if applicable): CC: Dr. Lior Aguilar MD; Dr. Amy Manley MD~ Signed [facility] Work Phone: Rerxgi for referral (narrative)No reason for referral information availableWUniversity [facility] Work Phone: Reeyli for visit Narrative* Auth/Cert (Routine) Specialty Diagnoses / Procedures Referred By Contac t Referred To Contact Diagnoses Umbilical hernia with obstruction, without gangrene Procedures NV RPR AA HERNIA 1ST 3-10 CM REDUCIBLE LAPAROSCOPIC UMBILICAL HERNIA REPAIR WITH MESH Fely Sanchez MD [address] [place] [address] [address] [place] [address] Phone: tel: fax: [facility] [address] [place] [address] Phone: tel: Referral ID Status Reason Start Date Expiration Date Visits Re quested Visits Authorized [id number] 1 1 [facility] Advance Directives No Advanced Directives Records FoundDocuments on File Type Date Recorded Patient Language Translator Expl anation Advance Directive(s) 08/14/2015 6:18 AM Advance Directive(s) 07/28/2015 3:27 PM Advance Directive Response Recorded Date/ Time Name of Medical Power of Plasterer Rough TATE, March 02, 2023 1:51pm Living Will Yes March 02 1:51pm Power of Plasterer Rough Yes March 02, 2023 1:51pm Advance Directive Response Recorded Date/ Time Name of Medical Power of Plasterer Rough TATE, March 02, 2023 1:51pm Name of Medical Power of Plasterer Rough March 09, 2023 9:18am Living Will Yes March 09 9:18am Power of Plasterer Rough Yes March 09, 2023 9:18am Advance Directive Response Recorded Date/ Time Name of Medical Power of Plasterer Rough TATE March 02, 2023 2:51pm Name of Medical Power of Plasterer Rough March 09, 2023 10:18am Living Will Yes March 09 10:18am Power of Plasterer Rough Yes March 09, 2023 10:18am Documents on File Type Date Recorded Patient Language Translator Expl anation Power of Plasterer Rough 05/03/2024 10:49 AM Date Activated Date Inactivated Comments 05/03/2024 10:55 AM 05/03/2024 7:10 PM Documents on File Type Date Recorded Patient Language Translator Expl anation Power of Plasterer Rough 05/03/2024 10:49 AM Date Activated Date Inactivated Comments 05/03/2024 10:55 AM 05/03/2024 7:10 PM Summary Purpose Family History No Family History Records FoundNo Family History Records FoundNo Family History Records Found Chief Complaint and Reason for Visit Chief Complaint SCOPE/HERNIA Reason for Visit History of colon [place] y[place] Chief Complaint SCOPE/HERNIA Reason for Visit History of colon [place] GI bleed Reason for Visit GI bleed Additional Source Comments Goals (unrecognized section and content) Goals may be documented in a n alternate sectionGoals may be documented in an alternate sectionGoals may be documented in an alternate sectionGoals may be documented in an alternate sectionGoals may be documented in an alternate section Source Comments (unrecognize d section and content) In the event this informatio n is protected by the Federal Confidentiality of Alcohol and Drug Abuse Patient Records regulations: The Federal rules restrict any use of the information to criminally investigate or prosecute any alcohol or drug abuse patient.[facility], IncIn the event this information is protected by the Federal Confidentiality of Alcohol and Drug Abuse Patient Records regulations: The Federal rules restrict any use of the information to criminally investigate or prosecute any alcohol or drug abuse patient.[facility], IncIn the event this information is protected by the Federal Confidentiality of Alcohol and Drug Abuse Patient Records regulations: The Federal rules restrict any use of the information to criminally investigate or prosecute any alcohol or drug abuse patient.[facility] Reason for Visit (unrecogniz ed section and content) Reason Comments Eyelid Cyst Evaluation right eyelid x 4 years Reason Comments Benign cystic lesion Right Eye, upper li d Reason Comments New Patient ALS 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 - UMBILICAL HERNIA Specialty Diagnoses / Procedures Referred By Doreen berry Referred To Contact General Surgery Diagnoses Umbilical hernia without obstruction or gangrene Procedures NV UNLISTED EVALUATION AND MANAGEMENT SERVICE Amy Manley [address] [facility] [address] [place] [address] Phone: tel: fax: Fely Sanchez MD [address] [place] [address] [address] [place] [address] Phone: tel: fax: Referral ID Status Reason Start Date Expiration Date V isits Requested Visits Authorized [id number] Closed Specialty Services Required 01/09/2024 01/08/2025 1 1 Reason Comments Post-op 2 Wk PO -Laparoscopi c umbilical hernia repair with mesh -on 05/03/24, w/ JZ Care Teams (unrecognized sec tion and content) Nursing Assoc Relationship Specialty Start Date End Date Amy Manley MD [address] [place] [address] PCP - General Family Medicine 01/10/22 Team Status: Active Member Role Status Dates Margarito Cervantes Family Provider Active Dr. Amy Manley MD Primary Care Provider Active Team Status: Inactive Member Role Status Dates Dr. Amy Manley MD Primary Care Provider, Attending P rovider Active Team Status: Inactive Member Role Status Dates Dr. Amy Manley MD Primary Care Provider, Referring P rovider Active Dr. Lior Aguilar MD Attending Provider Active Team Status: Active Member Role Status Dates Dr. Amy Manley MD Primary Care Provider, Referring P rovider Active Dr. Lior Aguilar MD Attending Provider, Other Provider Active Nursing Assoc Relationship Specialty Start Date End Date Amy Manley [address] [place] [address] PCP - General Family Medicine 01/08/24 Nursing Assoc Relationship Specialty Start Date End Date Amy Manley [address] [place] [address] PCP - General Family Medicine 01/08/24 Nursing Assoc Relationship Specialty Start Date End Date Amy Manley [address] [place] [address] PCP - General Family Medicine 01/08/24 Nursing Assoc Relationship Specialty Start Date End Date Amy Manley [address] [place] [address] PCP - General Family Medicine 01/08/24 Nursing Assoc Relationship Specialty Start Date End Date Amy Manley [address] [place] [address] PCP - General Family Medicine 01/08/24 Team Status: Active Member Role/Relationship Status Dates Margarito Cervantes Family Provider Active Dr. Amy Manley MD Primary Care Provider Active Team Status: Inactive Member Role/Relationship Status Dates Dr. Amy Manley MD Primary Care Provider Active Start: October 16, 2024 End: October 16, 2024 Dr. Amy Manley MD Attending Provider Active St art: October 16, 2024 End: October 16, 2024 (unrecognized sect ion and content) No Status Records FoundNo Status Records FoundNo Status Records Found INFORMATION SOURCE (unrecogn ized section and content) DATE CREATED AUTHOR 01/11/2022 [facility] DATE CREATED AUTHOR AUTHOR'S ORGANIZ ATION 05/18/2024 [facility] DATE CREATED AUTHOR AUTHOR'S ORGANIZ ATION 10/25/2024 [facility] Scheduled Active and Recently Administ ered Medications (unrecognized section and content) Medication Order 05/01/2024 05/02/2024 05/03/2024 acetaminophen (Tylenol) tablet 1,000 mg (COMPLETED) 1,000 mg, Oral, Once, On Mon05/03/24 at 1100, For 1 dose, Preprocedure, Maximum dose of acetaminophen is 4000 mg from all sources in 24 hours. Do not administer if patient has taken tylenol <6 hours earlier. Do not give if contraindicated ie. patient has active liver disease or cirrhosis. 1106 (Given - Provid er: Barbara Forrester RN) ceFAZolin in dextrose 4% (Ancef) IVPB 2,000 mg (COMPLETED) 2,000 mg, IntraVENous, Administer over 30 Minutes, Once, On Mon05/03/24 at 1100, For 1 dose, Preprocedure, Administer within 1 hour prior to incision. Recommend to repeat in 3-4 hours after initial dose if still intra-op. premix bag, Suspected Indication (Select all that apply): Surgical Prophylaxis 1357 (Given - Provid er: Michael Harman APRN - SABIHA) famotidine (Pepcid) tablet 20 mg (COMPLETED)(Linked Group 1) 20 mg, Oral, Once, On Mon05/03/24 at 1100, For 1 dose, Preprocedure, IV or ORAL 1106 (Given - Provid er: Barbara Forrester RN) sodium chloride 0.9% (NS) flush 10 mL 10 mL, IntraVENous, Every 12 hours scheduled (2 times per day), First dose on Mon05/03/24 at 1100, Preprocedure 1100 (Canceled Entry - Provider: Automatic Discharge Provider - Comment: Automatically canceled at discontinue of medication order) sodium chloride 0.9% (NS) flush 10 mL 10 mL, IntraVENous, Every 12 hours scheduled (2 times per day), First dose on Mon05/03/24 at 2100, Recovery (only) sodium chloride 0.9% (NS) flush 5-40 mL 5-40 mL, IntraVENous, Every 12 hours, First dose on Mon05/03/24 at 1100, Preprocedure, For Line Patency: Peripheral IV = 5 mL; Midline or Central Line = 10 mL/lumen. If following IV push medication, administer flush at same rate as the IV push. Flush volume is determined by type of infusion therapy being given. For non-viscous solutions use: Peripheral IV = 5 mL Midline or Central Line = 10 mL/lumen For viscous solutions (i.e. blood components, parenteral nutrition, contrast media, or after obtaining blood sample) use: Peripheral IV = 10 mL Midline or Central Line = 20 mL/lumen 1100 (Canceled Entry - Provider: Automatic Discharge Provider - Comment: Automatically canceled at discontinue of medication order) Continuous Medication Order 05/01/2024 05/02/2024 05/03/2024 lactated Ringer's (LR) infusion 50 mL/hr, IntraVENous, Continuous, Starting on Mon05/03/24 at 1100, Preprocedure, Upon admission to sameday - please start iv if patient does not have iv access. Use 500ml NS for patients on dialysis. 1106 (New Bag - Prov ider: Barbara Forrester RN)1336 (Continued by Anesthesia - Provider: Michael Harman APRN - SABIHA)1550 (Anesthesia Volume Adjustment - Provider: HERBERTH Warren CRNA) lactated ringers infusion 125 mL/hr, IntraVENous, Continuous, Starting on Mon05/03/24 at 1615, Recovery (only) 1615 (Canceled Entry - Provider: Automatic Discharge Provider - Comment: Automatically canceled at discontinue of medication order) PRN Medication Order 05/01/2024 05/02/2024 05/03/2024 ALPRAZolam (Xanax) disintegrating tablet 0.25 mg 0.25 mg, Oral, PRN, anxiety, Starting on Mon05/03/24 at 1055, For 1 dose, Preprocedure dextrose 5 % infusion 100 mL/hr, IntraVENous, PRN, Blood sugar less than 70mg/dL, Starting on Mon05/03/24 at 1055, Preprocedure, Start infusion following administration of dextrose 50% or glucagon. dextrose 50 % solution 12.5 g 12.5 g, IntraVENous, PRN, low blood sugar, Blood glucose less than 70 mg/dL and patient NOT ALERT or NPO., Starting on Mon05/03/24 at 1055, Preprocedure, If patient does not respond within 5 minutes, repeat dose x1. Start D5W at 100 mL/hour until ordering provider can be reached. Repeat blood glucose in 15 minutes. If blood glucose is less than 70 mg/dL, repeat treatment and recheck blood glucose in 15 minutes x2. If using Glucostabilizer, dose as instructed per system. diphenhydrAMINE (BENADryl) injection 12.5 mg 12.5 mg, IntraVENous, Once PRN, itching, Starting on Mon05/03/24 at 1608, For 1 dose, Recovery (only) fentaNYL (Sublimaze) injection 25 mcg 25 mcg, IntraVENous, Every 5 min PRN, moderate pain (4-6), Starting on Mon05/03/24 at 1608, For 3 doses, Recovery (only), Phase I and Phase II- Initial therapy for moderate pain (4-6). Restricted to a 90 minute time frame starting when the patient can verbally state their pain score. If after 2 doses the pain score does not decrease by more than one point, then call the provider. If oral meds are utilized, do not return to initial therapy medications. fentaNYL (Sublimaze) injection 50 mcg 50 mcg, IntraVENous, Every 5 min PRN, severe pain (7-10), Starting on Mon05/03/24 at 1608, For 3 doses, Recovery (only), Phase I and Phase II- Initial therapy for severe pain (7-10). Restricted to a 90 minute time frame starting when the patient can verbally state their pain score. If after 2 doses the pain score does not decrease by more than one point, then call the provider. If oral meds are utilized, do not return to initial therapy medications. glucagon (human recombinant) injection 1 mg 1 mg, IntraMUSCular, PRN, low blood sugar, Blood glucose less than 70 mg/dL and patient NOT ALERT or NPO and does not have IV access., Starting on Mon05/03/24 at 1055, Preprocedure, After administration, attempt intravenous access and start D5W at 100 mL/hr. Repeat blood glucose in 15 minutes x2 and notify provider. glucose oral gel 15 g 15 g, Oral, As needed, low blood sugar, Starting on Mon05/03/24 at 1055, Preprocedure, If blood glucose less than 50 mg/dL and patient ALERT and NOT NPO, give 2 tubes glucose gel. If blood glucose less than 70 mg/dL and patient ALERT and NOT NPO, give 1 tube glucose gel. Repeat blood glucose in 15 minutes. If blood glucose is less than 70 mg/dL, repeat treatment and recheck blood glucose in 15 minutes x2 and notify provider. hydrALAZINE (Apresoline) injection 5 mg(Linked Group 2) 5 mg, IntraVENous, Every 15 min PRN, high blood pressure, for SBP greater than 160 mmHg for 2 consecutive measurements taken from different sites, Starting on Mon05/03/24 at 1608, For 2 doses, Recovery (only), PRN for SBP > 160 for 2 consecutive measurements, and if one of the following conditions is met: 1) If IV labetolol is ineffective. 2) If HR is under 60. 3) If patient has heart block, COPD or asthma. If both labetalol and hydralazine ineffective, notify anesthesia provider. labetalol (Normodyne,Trandate) injection 5 mg(Linked Group 2) 5 mg, IntraVENous, Every 10 min PRN, high blood pressure, for SBP greater than 160 mmHg for 2 consecutive measurements taken from different sites., Starting on Mon05/03/24 at 1608, For 2 doses, Recovery (only), PRN for SBP >160 for 2 consecutive measurements, if HR is 60 or greater. If beta darren is contraindicated (HR less than 60, heart block, COPD or asthma) use hydralazine IV order. ondansetron (Zofran) injection 4 mg 4 mg, IntraVENous, Once PRN, nausea, Starting on Mon05/03/24 at 1608, For 1 dose, Recovery (only), Initial antiemetic therapy. oxyCODONE (Roxicodone) immediate release tablet 10 mg (COMPLETED)(Linked Group 3) 10 mg, Oral, Every 4 hours PRN, severe pain (7-10), Starting on Mon05/03/24 at 1608, For 1 dose, Recovery (only), PHASE II 1614 (Given - Provid er: Radha Leo RN) sodium chloride 0.9 % bolus 500 mL 500 mL, IntraVENous, at 1,000 mL/hr, Administer over 0.5 Hours, PRN, Anti-nausea, Starting on Mon05/03/24 at 1608, Recovery (only), Indications: Anti-nausea sodium chloride 0.9 % infusion 5-250 mL/hr, IntraVENous, PRN, if patient receiving piggyback infusions and maintenance fluids are not ordered OR KVO fluids to protect IV site / prevent frequent line interruptions / long duration, Starting on Mon05/03/24 at 1055, Preprocedure, For piggyback infusion, administer at same rate as piggyback for a total of 25 mL. Enter 25 mL into dose field and piggyback rate into rate field of order. If piggyback is infusing at a rate less than 100 mL/hr, enter 25 mL into dose field and 100 mL/hr into rate field of order. For KVO fluids, enter rate of 20 mL/hr or less into rate field of order. sodium chloride 0.9 % infusion 5-250 mL/hr, IntraVENous, PRN, if patient receiving piggyback infusions and maintenance fluids are not ordered OR KVO fluids to protect IV site / prevent frequent line interruptions/ long duration, Starting on Mon05/03/24 at 1055, Preprocedure, For piggyback infusion, administer at same rate as piggyback for a total of 25 mL. Enter 25 mL into dose field and piggyback rate into rate field of order. If piggyback is infusing at a rate less than 100 mL/hr, enter 25 mL into dose field and 100 mL/hr into rate field of order. For KVO fluids, enter rate of 20 mL/hr or less into rate field of order. sodium chloride 0.9 % infusion 5-250 mL/hr, IntraVENous, PRN, if patient receiving piggyback infusions and maintenance fluids are not ordered OR KVO fluids to protect IV site / prevent frequent line interruptions/ long duration, Starting on Mon05/03/24 at 1608, Recovery (only), For piggyback infusion, administer at same rate as piggyback for a total of 25 mL. Enter 25 mL into dose field and piggyback rate into rate field of order. If piggyback is infusing at a rate less than 100 mL/hr, enter 25 mL into dose field and 100 mL/hr into rate field of order. For KVO fluids, enter rate of 20 mL/hr or less into rate field of order. sodium chloride 0.9% (NS) flush 10 mL 10 mL, IntraVENous, PRN, line care, Starting on Mon05/03/24 at 1055, Preprocedure, After every IV line use sodium chloride 0.9% (NS) flush 10 mL 10 mL, IntraVENous, PRN, line care, Starting on Mon05/03/24 at 1608, Recovery (only), After every IV line use sodium chloride 0.9% (NS) flush 5-40 mL 5-40 mL, IntraVENous, PRN, line care, After every IV line use, Starting on Mon05/03/24 at 1055, Preprocedure, For Line Patency: Peripheral IV = 5 mL; Midline or Central Line = 10 mL/lumen. If following IV push medication, administer flush at same rate as the IV push. Flush volume is determined by type of infusion therapy being given. For non-viscous solutions use: Peripheral IV = 5 mL Midline or Central Line = 10 mL/lumen For viscous solutions (i.e. blood components, parenteral nutrition, contrast media, or after obtaining blood sample) use: Peripheral IV = 10 mL Midline or Central Line = 20 mL/lumen sterile water irrigation solution (CANCELED) As needed, Starting on Mon05/03/24 at 1516, Intraprocedure 1516 (Given - Provid er: Fely Sanchez MD - Comment: [employer]) Linked Groups Order Group 1: famotidine (Pepcid) tablet 20 mg (COMPLETED)Jump to med 20 mg, Oral, Once, On Mon05/03/24 at 1100, For 1 dose, Preprocedure, IV or ORAL Or famotidine (Pepcid) 20 mg in sodium chloride (PF) 0.9 % 10 mL injection (COMPLETED) 20 mg, IntraVENous, Administer over 2 Minutes, Once, On Mon05/03/24 at 1100, For 1 dose, Preprocedure, IV or ORAL Group 2: labetalol (Normodyne,Trandate) injection 5 mgJump to med 5 mg, IntraVENous, Every 10 min PRN, high blood pressure, for SBP greater than 160 mmHg for 2 consecutive measurements taken from different sites., Starting on Mon05/03/24 at 1608, For 2 doses, Recovery (only), PRN for SBP >160 for 2 consecutive measurements, if HR is 60 or greater. If beta darren is contraindicated (HR less than 60, heart block, COPD or asthma) use hydralazine IV order. Or hydrALAZINE (Apresoline) injection 5 mgJump to med 5 mg, IntraVENous, Every 15 min PRN, high blood pressure, for SBP greater than 160 mmHg for 2 consecutive measurements taken from different sites, Starting on Mon05/03/24 at 1608, For 2 doses, Recovery (only), PRN for SBP > 160 for 2 consecutive measurements, and if one of the following conditions is met: 1) If IV labetolol is ineffective. 2) If HR is under 60. 3) If patient has heart block, COPD or asthma. If both labetalol and hydralazine ineffective, notify anesthesia provider. Group 3: oxyCODONE (Roxicodone) immediate release tablet 5 mg (COMPLETED) 5 mg, Oral, Every 4 hours PRN, moderate pain (4-6), Starting on Mon05/03/24 at 1608, For 1 dose, Recovery (only), PHASE II Or oxyCODONE (Roxicodone) immediate release tablet 10 mg (COMPLETED)Jump to med 10 mg, Oral, Every 4 hours PRN, severe pain (7-10), Starting on Mon05/03/24 at 1608, For 1 dose, Recovery (only), PHASE II FOR RECORDS PERTAINING TO PATIENTS WHO ARE [...] BE BASED ON THE PRIMARY CLINICAL RECORDS. [employer] [facility]. provides no warranty or guarantee of the accuracy or completeness of information in this document.
[2025-01-20 10:36] LABS: Hematocrit 51.0 % (40-54); Hemoglobin 17.5 g/dL (13.0-16.5); Immature Granulocytes Count 0.020 X10^3/uL (0.0-0.0); Mean Corp Hgb Conc 34.3 g/dL (32-36); Mean Corpuscular Volume 101.0 fL (80-94); Mean Platelet Vol. 11.6 fl (6.2-12.0); NRBC Flagged by Analyzer 0 % (0-5); Platelet Count 223 K/mm3 (150-450); RBC Distribution Width CV 13.2 % (11.6-14.6); RBC Distribution Width SD 49.4 fl (35.1-43.9); Red Blood Count 5.05 M/mm3 (4.6-6.2); White Blood Count 8.2 K/mm3 (4.4-11.0)
[2025-01-20 11:07] LABS: Creatinine, Urine (random) 96.30 mg/dL (39.00-259.00); Microalbumin,Random Urine 37.4 mg/L (<20 mg/L)
[2025-01-20 11:14] LABS: AST(SGOT) 25 U/L (<=37); Alanine Aminotransfer ALT/SGPT 24 U/L (<=46); Albumin, Serum 4.2 g/dL (3.4-4.8); Alkaline Phosphatase 63 U/L (40-129); Anion Gap 10 (5-15); BUN 27 mg/dL (4-19); BUN/Creat Ratio 24.5 RATIO (10-20); Calcium,Total 9.8 mg/dL (7.6-11.0); Carbon Dioxide 27.0 mmol/L (21.0-32.0); Chloride 98 mmol/L (98-108); Globulin 3.3 g/dL (2.2-4.2); Glucose 109 mg/dL (70-99); Potassium 4.4 mmol/L (3.3-5.1); Uric Acid 4.4 mg/dL (3.5-7.2)
== END | disposition home or self-care (01) ==
LOC: MFPLAB 09:36
PROVIDERS: PCP Family Medicine; Visit Provider Family Medicine
DX: E66.813 Obesity, class 3 (principal); E11.22 Type 2 diabetes mellitus with diabetic chronic kidney disease
CPT/HCPCS: 36415; 80053; 82043; 82570; 83036; 84550; 85025